=== PATIENT | female | born 1975 | race Caucasian/White ===

== ENCOUNTER 2018-10-04 11:44 | Inpatient (IN) ==
[2018-10-04] MEDS ORDERED: IPRATROPIUM/ALBUTEROL 3 ML AMPUL.NEB NEB ONE ×2 (11:49→11:50)
[2018-10-04] MEDS ORDERED: TERBUTALINE 1 MG/ML VIAL SQ ONE (12:02)
[2018-10-04] MEDS ORDERED: methylPREDNISolone SOD SUCC 125 MG/2 ML VIAL IV ONE (12:02)
[2018-10-04] MEDS ORDERED: 0.9 % SODIUM CHLORIDE 1,000 ML IV ONE (12:02)
[2018-10-04] MEDS ORDERED: AZITHROMYCIN 500 MG in DEXTROSE 5% IN WATER 250 ML IV ONE (12:02)
--- NOTE | 2018-10-04 12:07 | Emergency Department Note ---
SOB HPI - General Chief Complaint: Shortness of Breath/Dyspnea Stated Complaint: shortness of breath, cold/flu Time Seen by Provider: 10/04/18 11:56 Source: patient Mode of arrival: ambulatory Limitations: no limitations - History of Present Illness 43-year-old female been sick for the last week. No fever but chills. Nausea but no vomiting or diarrhea. Very short of breath with wheezing. Has run out of her inhalers and is having a lot of trouble catching her breath. - Related Data Home Medications Medication Instructions Recorded Confirmed albuterol sulfate HFA 90 2 puff INHALATION QID g 12/05/15 05/07/18 mcg/actuation aerosol inhaler epinephrine 0.3 mg/0.3 mL 0.3 mg IM ONCE 12/05/15 05/07/18 injection, auto-injector levothyroxine 150 mcg tablet 150 mcg PO QDAY tab 12/05/15 05/07/18 methocarbamol 500 mg tablet 1,000 mg PO QID 12/05/15 05/07/18 omeprazole 20 mg capsule,delayed 20 mg PO QDAY cap 12/05/15 05/07/18 release oxycodone-acetaminophen 5 mg-325 1 - 2 tab PO Q6H PRN 12/05/15 05/07/18 mg tablet sertraline 50 mg tablet 50 mg PO QDAY 12/05/15 05/07/18 zolpidem 10 mg tablet 10 mg PO HS PRN 12/05/15 05/07/18 metFORMIN [Glucophage] 500 mg PO DAILY 10/12/17 05/07/18 Gabapentin [Gralise] 600 mg PO TID 05/07/18 05/07/18 Previous Rx's Medication Instructions Recorded Methocarbamol [Robaxin-750] 750 mg PO Q6-8HP PRN #30 tab 05/11/18 Ondansetron [Zofran] 4 mg SL Q4HP PRN #20 tab 05/11/18 HYDROmorphone HCL [Dilaudid] 2 mg PO Q4-6HP PRN #60 tab 05/12/18 Methocarbamol [Robaxin] 750 mg PO TIDP PRN #60 tab 05/12/18 Albuterol Sulfate 2.5 mg IH Q4HP PRN #60 vial 10/04/18 Albuterol Sulfate [Ventolin] 2 puff INH Q4-6HP PRN #1 inhaler 10/04/18 Azithromycin [Zithromax] 250 mg PO DAILY #6 tablet 10/04/18 predniSONE [Prednisone] 10 mg PO DAILY #30 tablet 10/04/18 Allergies Allergy/AdvReac Type Severity Reaction Status Date / Time morphine Allergy Severe Anaphylaxis Verified 10/04/18 11:46 levofloxacin [From Levaquin] AdvReac Severe Hives Verified 10/04/18 11:46 Review of Systems All systems ED: reviewed and negative except as stated. Past Medical History - Past Medical History Attestation: Yes: The following information was validated with the patient. [facility] Narrative: Family History Grandmother (Maternal) Diabetes mellitus Aunt (Maternal) Malignant neoplasm of breast Diabetes mellitus Medical History Obesity (Chronic) Frequency of micturition (Chronic) Impaired fasting glucose (Chronic) Depression with anxiety (Chronic) Low back pain (Chronic) Insomnia (Chronic) Wheezing (Chronic) Esophageal reflux (Chronic) Hypothyroidism (Chronic) Past Surgical History History of bilateral salpingectomy (Chronic) History of section (Chronic) History of cholecystectomy (Chronic) History of meniscectomy of right knee (Chronic) History of total abdominal hysterectomy and bilateral salpingo-oophorectomy (Chronic) Medical history: Reports: arthritis, asthma, DM, hypothyroidism, other (history of obesity, history of chronic back pain) Surgical history ED: Reports: , hysterectomy - Social History smoking status: Former smoker Alcohol use: Reports: None Drug use: Reports: none Physical Exam Obese female some distress secondary to respiratory difficulty. Normocephalic atraumatic. Conjunctive are clear sclerae white and nonicteric. No nasal discharge or congestion. Oropharynx pink moist. Posterior pharynx clear. No exudate or erythema. Neck is supple without lymphadenopathy or thyromegaly. Heart is regular rhythm but tachycardic. Lungs with's severe wheezing in all lung ziegler. Increased work of breathing noted. This is after getting a single breathing treatment with DuoNeb -only mild improvement with the DuoNeb. No pedal edema. Alert oriented but having trouble giving me history secondary to difficulty breathing Limitations: no limitations Course Vital Signs Temperature 97.3 F 10/04/18 11:45 Pulse Rate 81 10/04/18 11:45 Respiratory Rate 30 H 10/04/18 11:45 Blood Pressure 137/80 10/04/18 11:45 Pulse Oximetry (%) 96 10/04/18 11:45 Temperature 97.3 F 10/04/18 11:45 Pulse Rate 106 H 10/04/18 14:21 Respiratory Rate 30 H 10/04/18 11:45 Blood Pressure 137/77 10/04/18 14:21 Pulse Oximetry (%) 98 10/04/18 14:21 Shortness of Breath/Dyspnea - Lab Data Lab results reviewed: Yes I reviewed the patient's lab results. Result diagrams: 10/04/18 12:17 10/04/18 12:17 Lab Results 10/04/18 10/04/18 Range/Units 12:17 12:17 WBC 8.3 (4.5-11.0) K/mcL RBC 4.29 (4.00-5.20) M/mcL Hgb 12.9 (12.0-15.0) g/dL Hct 39.3 (36.0-48.0) % MCV 91.6 (80.0-100.0) fL MCH 30.1 (26.0-34.0) pg MCHC 32.8 (31.0-36.0) g/dL RDW 14.1 (11.5-14.5) % Plt Count 311 (140-440) K/mcL MPV 8.0 (7.4-10.4) fL Gran % 42.4 (38.0-78.0) % Lymph % (Auto) 46.7 (15.5-49.0) % [place] % (Auto) 6.4 (1.0-12.0) % Eos % (Auto) 4.1 (0.0-7.0) % Baso % (Auto) 0.4 (0.0-2.0) % Gran # 3.5 (1.8-8.0) K/mcL Lymph # (Auto) 3.9 (1.5-4.8) K/mcL [place] # (Auto) 0.5 (0.1-0.9) K/mcL Eos # (Auto) 0.3 (0.0-0.7) K/mcL Baso # (Auto) 0 (0.0-0.3) K/mcL Sodium 141 (133-145) mmol/L Potassium 4.2 (3.3-5.1) mmol/L Chloride 103 (96-108) mmol/L Carbon Dioxide 28 (22-30) mmol/L Anion Gap 10.0 (8-16) BUN 10 (6-20) mg/dl Creatinine 0.6 (0.6-1.1) mg/dl GFR Calculation 112 Glucose 88 (70-105) mg/dL Calcium 9.9 (8.6-10.4) mg/dl Magnesium 2.1 (1.6-2.5) mg/dL Total Bilirubin 0.2 (0.0-1.0) mg/dL AST 24 (0-37) U/l ALT 28 (0-40) U/l Alkaline Phosphatase 82 (39-117) U/L Total Protein 7.3 (5.9-8.4) gm/dL Albumin 4.2 (3.2-5.2) gm/dL Globulin 3.1 (2.2-3.7) gm/dL Albumin/Globulin Ratio 1.4 (1.0-2.3) ABG shows essentially mild hypoxia but otherwise normal Flu swab is negative - Radiology Data Radiology results reviewed: Yes I reviewed the patient's radiology results. Chest x-ray shows perhaps left lower lobe pneumonia but this is equivocal - EKG Data EKG attestation: Yes I reviewed and interpreted this EKG. EKG results narrative: EKG shows sinus rhythm rate of 76 normal axis no evidence of ischemia Disposition Pt seen by PROFESSIONAL HEALTHCARE REPRESENTATIVE/PA only: No Clinical Impression: Asthma with exacerbation Qualifiers: Asthma severity: unspecified severity Asthma persistence: unspecified Qualified Code(s): J45.901 - Unspecified asthma with (acute) exacerbation Summary: After interview and exam, workup ordered along with heart neb 10 mg albuterol. This is after getting single DuoNeb. She also received Zofran 4 mg x2 for naus ea. Solu-Medrol was given along with azithromycin, magnesium, terbutaline and IV fluids We then gave her a heart neb with 10 mg of albuterol From which she greatly improved. Flu swab was negative. Arterial blood gas did not show significant acidosis. Laboratory were also otherwise unremarkable as was her chest x-ray Discharged home with prednisone taper, azithromycin and Ventolin inhaler. We will also prescribe nebulizer with albuterol Follow-up with primary care Disposition: Home, Self-Care Condition: Fair Instructions: Asthma (ED), How to Use a Nebulizer (ED) Additional Instructions: Sent prescription to your pharmacy. Please picking machine operator helper and take as directed. Also hand written prescription for nebulizer. Please picking machine operator helper and use as directed Follow-up with primary care for further evaluation and treatment Return to the ER for any worsening symptoms Prescriptions: Albuterol Sulfate 2.5 mg IH Q4HP PRN #60 vial PRN Reason: Wheezing Albuterol Sulfate [Ventolin] 2 puff INH Q4-6HP PRN #1 inhaler PRN Reason: Wheezing Azithromycin [Zithromax] 250 mg PO DAILY #6 tablet predniSONE [Prednisone] 10 mg PO DAILY #30 tablet
[2018-10-04 12:42] LABS: Basophils # (Auto) 0 K/mcL (0.0-0.3); Basophils % (Auto) 0.4 % (0.0-2.0); Eosinophils # (Auto) 0.3 K/mcL (0.0-0.7); Eosinophils % (Auto) 4.1 % (0.0-7.0); Granulocytes % (Auto) 42.4 % (38.0-78.0); Lymphocytes # (Auto) 3.9 K/mcL (1.5-4.8); Lymphocytes % (Auto) 46.7 % (15.5-49.0); Mean Cell Volume 91.6 fL (80.0-100.0); Mean Corpuscular HGB Conc 32.8 g/dL (31.0-36.0); Monocytes # (Auto) 0.5 K/mcL (0.1-0.9); Monocytes % (Auto) 6.4 % (1.0-12.0); Platelet Count 311 K/mcL (140-440); RBC 4.29 M/mcL (4.00-5.20); Red Cell Distribution Width 14.1 % (11.5-14.5)
[2018-10-04 13:00] LABS: ALT/SGPT 28 U/l (0-40); Albumin 4.2 gm/dL (3.2-5.2); Albumin/Globulin Ratio 1.4 (1.0-2.3); Alkaline Phosphatase 82 U/L (39-117); Blood Urea Nitrogen 10 mg/dl (6-20)
--- NOTE | 2018-10-04 13:07 | XRay Report ---
HISTORY: Cough for one week FINDINGS: The lungs are incompletely expanded due to suboptimal inspiration. Lung volumes are larger today than they were on 07/18/08. There is crowding of the pulmonary vascular markings but no pneumonia or mass are identified. There is no pleural effusion or congestive heart failure. The heart size is normal. There are spurs around the margin of the left humeral head. IMPRESSION: Suboptimal inspiration and no acute abnormality Interpreted and Authenticated by: Puma Cary 10/04/18
[2018-10-04] MEDS ORDERED: ONDANSETRON 4 MG/2 ML VIAL IV ONE ×2 (13:16→14:08)
[2018-10-04] MEDS: MAGNESIUM SULFATE 2 GM/50 ML BAG IV ONE ×2 (13:28→14:47)
[2018-10-04] MEDS ORDERED: ALBUTEROL SULFATE 2.5 MG/3 ML NEBULIZER ONE (13:41)
[2018-10-04] MEDS: ALBUTEROL SULFATE 5 MG/ML NEB SOLUTION BOTTLE NEB ONE ×2 (13:43→14:16)
[2018-10-04] MEDS ORDERED: ACETAMINOPHEN 325 MG TABLET PO ONE (14:50)
--- NOTE | 2018-10-04 16:29 | Internal Med History&Physical ---
Medical - H&P: [facility] Patient information: Note initiated : 10/04/18 at 4:24 pm Service Date, if different from initiated Date: [] Patient: Felisha Murphy a 43 y/o F admitted on for shortness of breath, cold/flu. Chief Complaint: [] History of present illness: Ms. Murphy is a 43 year old F with severe shortness of breath and cough. Patient has had sick contacts with children. Patient is been sick for about a week and a half. Her illness started out as a cough productive of white sputum congestion some episodes of nausea vomiting she was not particularly short of breath until later on the course. Yesterday she developed significant increase in her shortness of breath and her cough became worse which was now productive of thick green sputum. She stayed home through the night hoping for some improvement. However, after lack of sleep because of her illness and persistent symptoms she went into the ER. Worse in triage she appeared to be quite labored. She does have history of asthma but does not have any inhalers. She ran out of her inhalers at least a year ago, typically only needing her inhalers when she has an illness. In the ED she had a workup included chest x-ray which was unimpressive and an ABG which showed PaO2 of only 60 on room air. She was noted to desat to 87% as recorded, do not know what her sats were when EMS arrived. She is given a nebulizer treatment with minimal improvement. She was subsequently given a heart neb treatment over an hour with improvement in her symptoms. However she was still quite hypoxic and required oxygen, requiring 3-4 L of nasal cannula oxygen. Her peak expiratory flow was 290, which is about 60% of expected. And sometime after the heart nebulizer she continued to develop worsening wheezing. She does complain of some chills headache nausea vomiting she does have some chest wall pain with coughing. Review of Systems: Pertinent positives as above. Denies fever/ abdominal pain/diarrhea. Remaining 10 point review of systems reviewed negative Medical - H&P: PMH Medical history: Medical History Obesity (Chronic) Frequency of micturition (Chronic) Impaired fasting glucose (Chronic) Depression with anxiety (Chronic) Low back pain (Chronic) Insomnia (Chronic) Wheezing (Chronic) Esophageal reflux (Chronic) Hypothyroidism (Chronic) Past Surgical History History of bilateral salpingectomy (Chronic) History of section (Chronic) History of cholecystectomy (Chronic) History of meniscectomy of right knee (Chronic) History of total abdominal hysterectomy and bilateral salpingo-oophorectomy (Chronic) Family History Grandmother (Maternal) Diabetes mellitus Aunt (Maternal) Malignant neoplasm of breast Diabetes mellitus Social History Quit smoking about a year ago, denies alcohol use, lives at home in the family. Medical - H&P: Meds Home Medications Medication Instructions Recorded Confirmed Type levothyroxine 150 mcg tablet 150 mcg PO QDAY tab 12/05/15 10/04/18 History omeprazole 20 mg capsule,delayed 20 mg PO QDAY cap 12/05/15 10/04/18 History release sertraline 50 mg tablet 50 mg PO QDAY 12/05/15 10/04/18 History zolpidem 10 mg tablet 10 mg PO HS PRN 12/05/15 10/04/18 History metFORMIN [Glucophage] 500 mg PO DAILY 10/12/17 10/04/18 History Gabapentin [Gralise] 600 mg PO TID 05/07/18 10/04/18 History Levothyroxine [Synthroid] 300 mcg PO .COMPLEX 10/04/18 10/04/18 History Allergies Allergy/AdvReac Type Severity Reaction Status Date / Time morphine Allergy Severe Anaphylaxis Verified 10/04/18 11:46 levofloxacin [From Levaquin] AdvReac Severe Hives Verified 10/04/18 11:46 Medical - H&P: Exam - Constitutional Vitals: Temp Pulse Resp BP Pulse Ox 97.3 F 105 H 17 127/71 87 L 10/04/18 11:45 10/04/18 15:41 10/04/18 15:21 10/04/18 15:41 10/04/18 15:41 Exam: General: Alert, Awake, No acute Distress, obese Eyes/N/T: EOMI, PEERL, DMM Head/Neck: neck supple, normocephalic atraumatic CV: RRR, 2/6 SM Pulm: Diminished bilaterally, mild wheezing, right-sided rhonchi abd: soft, nontender, +BS x4 Ext: no clubbing/cyanosis, trace bilateral lower extremity edema Neuro: Alert, no focal deficits, moves all extremities, CN 2-12 grossly intact, symmetrical strength b/l upper/lower, sensations intact b/l upper/lower Skin: warm/dry Medical - H&P: Reslt - Labs CBC & Chem 7: 10/04/18 12:17 10/04/18 12:17 Labs: Short CBC 10/04/18 Range/Units 12:17 WBC 8.3 (4.5-11.0) K/mcL Hgb 12.9 (12.0-15.0) g/dL Hct 39.3 (36.0-48.0) % Plt Count 311 (140-440) K/mcL BMP 10/04/18 12:17 Sodium 141 Potassium 4.2 Chloride 103 Carbon Dioxide 28 BUN 10 Creatinine 0.6 Glucose 88 Calcium 9.9 Liver Function 10/04/18 Range/Units 12:17 Total Bilirubin 0.2 (0.0-1.0) mg/dL AST 24 (0-37) U/l ALT 28 (0-40) U/l Alkaline Phosphatase 82 (39-117) U/L Albumin 4.2 (3.2-5.2) gm/dL - Impressions No obvious acute pathology on chest x-ray, noted to have poor inspiratory effort. Medical - H&P: A/P - Narrative A/P Narrative: A: *Acute hypoxic respiratory failure: 2/2 acute exacerbation *Asthma exacerbation: *URI, viral likely: *Diabetes w/neuropathy: *Chronic pain/osteoarthritis: On narcotics: *Depression: *Hypothyroidism: *Obese: * P: -Steroids (wean), nebs/IS/Acapella/RT -o2 support wean -empiric levaquin -f/u PEF -viral panel -SSI, metformin -cont home meds -clarify levothyroxine - - -ppx: lovenox
[2018-10-04] MEDS ORDERED: ACETAMINOPHEN 325 MG TABLET PO PRN (17:32)
[2018-10-04] MEDS ORDERED: DEXTROSE 50% 50 ML VIAL IV PRN (17:32)
[2018-10-04] MEDS ORDERED: LEVOFLOXACIN 500 MG/100 ML BAG IV SCH (17:32)
[2018-10-04] MEDS ORDERED: POLYETHYLENE GLYCOL 3350 17 GM PACKET PO PRN (17:32)
[2018-10-04] MEDS ORDERED: ALBUTEROL SULFATE 2.5 MG/3 ML NEBULIZER NEB PRN (17:32)
[2018-10-04] MEDS ORDERED: ONDANSETRON 4 MG/2 ML VIAL IV PRN (17:32)
[2018-10-04] MEDS ORDERED: DEXTROSE 31 GM ORAL.SUSP PO PRN (17:32)
[2018-10-04] MEDS ORDERED: POTASSIUM CHLORIDE 20 MEQ TABLET PO PRN (17:32)
[2018-10-04] MEDS ORDERED: MAGNESIUM SULFATE 2 GM/50 ML BAG IV PRN (17:32)
[2018-10-04] MEDS ORDERED: PROCHLORPERAZINE 10 MG/2 ML VIAL IV PRN (17:32)
[2018-10-04] MEDS ORDERED: PROMETHAZINE 12.5 MG SUPP.RECT PR PRN (17:32)
[2018-10-04] MEDS: AZITHROMYCIN 500 MG in DEXTROSE 5% IN WATER 250 ML IV SCH (17:43)
[2018-10-04] MEDS: INSULIN LISPRO 1 UNIT/0.01 ML UNIT SQ SCH ×2 (18:24→20:09)
[2018-10-04] MEDS: IPRATROPIUM/ALBUTEROL 3 ML AMPUL.NEB NEB SCH (18:54)
[2018-10-04] MEDS: GABAPENTIN 300 MG CAPSULE PO SCH (20:09)
[2018-10-04] MEDS: FAMOTIDINE 20 MG TABLET PO SCH (20:09)
[2018-10-04] MEDS: 0.9 % SODIUM CHLORIDE 10 ML SYRINGE IV SCH (20:10)
[2018-10-04] MEDS: DOCUSATE SODIUM 100 MG CAPSULE PO SCH (20:10)
[2018-10-04] MEDS ORDERED: SENNOSIDES 1 TABLET PO PRN (21:00)
[2018-10-04] MEDS ORDERED: ZOLPIDEM 5 MG TABLET PO PRN (21:47)
[2018-10-04] MEDS ORDERED: ZOLPIDEM 5 MG TABLET ONE (21:59)
[2018-10-04] MEDS: methylPREDNISolone SOD SUCC 125 MG/2 ML VIAL IV SCH (22:02)
[2018-10-05] MEDS: IPRATROPIUM/ALBUTEROL 3 ML AMPUL.NEB NEB SCH ×4 (01:07→18:48)
[2018-10-05] MEDS: 0.9 % SODIUM CHLORIDE 10 ML SYRINGE IV SCH ×3 (05:37→21:43)
[2018-10-05] MEDS: methylPREDNISolone SOD SUCC 125 MG/2 ML VIAL IV SCH ×3 (05:37→21:39)
[2018-10-05 06:17] LABS: ALT/SGPT 25 U/l (0-40); Albumin/Globulin Ratio 1.4 (1.0-2.3); Alkaline Phosphatase 66 U/L (39-117); Bilirubin,Direct < 0.2 mg/dL (0.0-0.3); Blood Urea Nitrogen 9 mg/dl (6-20); Gamma Glutamyl Transpeptidase 16 U/L (5-36); Uric Acid 4.7 mg/dL (2.5-8.0)
[2018-10-05] MEDS ORDERED: LEVOTHYROXINE 150 MCG TABLET PO SCH (07:30)
[2018-10-05] MEDS: INSULIN LISPRO 1 UNIT/0.01 ML UNIT SQ SCH ×4 (07:38→21:51)
--- NOTE | 2018-10-05 07:39 | Internal Med Progress Note ---
Medical - PN: Subj Patient information: Note initiated : 10/05/18 at 7:35 am Service Date, if different from initiated Date: [] Patient: Felisha Murphy a 43 y/o F admitted on 10/04/18 for shortness of breath, cold/flu. Chief Complaint: [] Interval history: Ms. Murphy is a 43 year old F with severe shortness of breath and cough. Patient has had sick contacts with children. Patient is been sick for about a week and a half. Her illness started out as a cough productive of white sputum congestion some episodes of nausea vomiting she was not particularly short of breath until later on the course. Yesterday she developed significant increase in her shortness of breath and her cough became worse which was now productive of thick green sputum. She stayed home through the night hoping for some improvement. However, after lack of sleep because of her illness and persistent symptoms she went into the ER. Worse in triage she appeared to be quite labored. She does have history of asthma but does not have any inhalers. She ran out of her inhalers at least a year ago, typically only needing her inhalers when she has an illness. In the ED she had a workup included chest x-ray which was unimpressive and an ABG which showed PaO2 of only 60 on room air. She was noted to desat to 87% as recorded, do not know what her sats were when EMS arrived. She is given a nebulizer treatment with minimal improvement. She was subsequently given a heart neb treatment over an hour with improvement in her symptoms. However she was still quite hypoxic and required oxygen, requiring 3-4 L of nasal cannula oxygen. Her peak expiratory flow was 290, which is about 60% of expected. And sometime after the heart nebulizer she continued to develop worsening wheezing. She does complain of some chills headache nausea vomiting she does have some chest wall pain with coughing. 10/05 Was able to get some sleep last night. She has continued cough which is dry at this point. She has some shortness of breath but much improved from admission. She has a headache from coughing. Review of Systems: denies fever/chills/nausea/vomiting/chest or abdominal pain/diarrhea. Otherwise see above. - Constitutional Vitals: Vital Signs Temp Pulse Resp BP Pulse Ox 97.9 F 78 17 92/65 93 10/05/18 04:01 10/05/18 07:05 10/05/18 07:05 10/05/18 07:01 10/05/18 07:05 Period Temp Pulse Resp BP Sys/Pitts Pulse Ox Last 24 Hr 97.3 F-98.6 F 58-132 14-30 84-145/45-111 86-98 Intake and Output 10/04/18 10/05/18 10/05/18 21:59 05:59 13:59 Intake Total 1436 860 Output Total 1020 1650 Balance 416 -790 Weight 119.068 kg Intake & Output: Intake & Output 10/04/18 10/05/18 10/05/18 21:59 05:59 13:59 Intake Total 1436 860 Output Total 1020 1650 Balance 416 -790 Weight 119.068 kg Intake: IV 1116 Sodium Chloride 0.9% 1,000 ml @ 816 Wide Open IV .Q0M ONE Rx#: [id number] Zithromax 500 mg In Dextrose 5% 250 in Water 250 ml @ 250 mls/hr IV ONCE ONE Rx#:[id number] Oral 320 860 Output: Void Amount 1020 1650 Other: Meal Dinner Percent of Meal Consumed 100% Feeding Ability Independent Urine Appearance Clear Clear Urine Color Bright Yellow Bright Yellow Urine Odor Normal Normal Exam: General: Alert, Awake, No acute Distress, obese Eyes/N/T: EOMI, Head/Neck: neck supple, CV: RRR, 2/6 SM Pulm: Better aeration bilaterally , wheezing bilaterally abd: soft, nontender, +BS x4 Ext: no clubbing/cyanosis, trace bilateral lower extremity edema Neuro: Alert, no focal deficits, moves all extremities, Skin: warm/dry Medical - PN: Obj Da - Labs CBC & Chem 7: 10/04/18 12:17 10/05/18 03:20 Labs: Abnormal Lab Results 10/05/18 03:20 Glucose 144 H Phosphorus 2.3 L Meds: Medications Acetaminophen (Tylenol) 650 mg PO Q6HP PRN PRN Reason: PAIN/FEVER > 101 Albuterol Sulfate (Ventolin) 2.5 mg NEB Q4HRT PRN PRN Reason: Bronchospasm Albuterol/Ipratropium (Duoneb) 3 ml NEB Q6HRT KAYLEE Last Admin: 10/05/18 01:07 Dose: 3 ml Documented by: Dextrose (Dextrose 50%) 0 ml IV UD PRN PRN Reason: Hypoglycemia Diagnostic Test (Pha) (Accu-Chek) 1 each FS [facility] Last Admin: 10/04/18 20:09 Dose: 1 each Documented by: Docusate Sodium (Colace) 100 mg PO BID [facility] Last Admin: 10/04/18 20:10 Dose: Not Given Documented by: Enoxaparin Sodium (Lovenox) 40 mg SQ DAILY [facility] Famotidine (Pepcid) 20 mg PO BID [facility] Last Admin: 10/04/18 20:09 Dose: 20 mg Documented by: Gabapentin (Neurontin) 600 mg PO TID [facility] Last Admin: 10/04/18 20:09 Dose: 600 mg Documented by: Glucose (Insta-Glucose) 15 gm PO PRN PRN PRN Reason: Hypoglycemia Azithromycin 500 mg/ Dextrose 250 mls @ 250 mls/hr IV DAILY [facility] Stop: 10/06/18 09:59 Last Admin: 10/04/18 17:43 Dose: 250 mls/hr Documented by: Magnesium Sulfate (Magnesium Sulfate) 2 gm in 50 mls @ 50 mls/hr IV ONCE PRN PRN Reason: Magnesium </= 1.6 Insulin Human Lispro (Humalog) 0 unit SQ [facility]; Protocol Last Admin: 10/04/18 20:09 Dose: 6 units Documented by: Levothyroxine Sodium (Synthroid) 300 mcg PO [id number] [facility] Levothyroxine Sodium (Synthroid) 150 mcg PO [id number]@0730 [facility] Metformin [facility] ([facility]ucophage) [facility] Methylprednisolone Sodium Succinate (Solu-Medrol) 80 mg IV Q8 [facility] Last Admin: 10/05/18 05:37 Dose: 80 mg Documented by: Ondansetron HCl (Zofran) 4 mg IV Q4HP PRN PRN Reason: Nausea And Vomiting Polyethylene Glycol (Miralax) 17 gm PO DAILYP PRN PRN Reason: Constipation Potassium Chloride (Kdur) 40 meq PO ONCE PRN PRN Reason: Potassium < 3 Prochlorperazine (Compazine) 10 mg IV Q6HP PRN PRN Reason: Nausea And Vomiting Promethazine HCl (Phenergan) 12.5 mg NV Q6HP PRN PRN Reason: Pain Senna (Senokot) 2 tab PO HSP PRN PRN Reason: Constipation Sertraline HCl (Zoloft) 50 mg PO QDAY KAYLEE Sodium Chloride (Saline Flush) 10 ml IV Q8 KAYLEE Last Admin: 10/05/18 05:37 Dose: 10 ml Documented by: Zolpidem Tartrate (Ambien) 10 mg PO HSP PRN PRN Reason: Insomnia Medical - PN: A/P - Time Spent With Patient Total time spent is greater than 50% in coordination of care (as documented) at patient's floor/unit and/or counseling patient: - Narrative A/P Narrative: A: *Acute hypoxic respiratory failure: 2/2 acute exacerbation -started on room air today while in bed -resp viral panel with Rhinovirus *Asthma exacerbation: *URI: *Diabetes w/neuropathy: *Chronic pain/osteoarthritis: On narcotics: *Depression: *Hypothyroidism: *Obese: * P: -Steroids (wean), nebs/IS/Acapella/RT -o2 support wean -empiric levaquin -f/u PEF -viral panel -SSI, metformin -cont home meds -clarify christian -needs IH script upon d/c - -ppx: lovenox Medical - PN: Qual - VTE Deep Vein Thrombosis/Pulmonary Embolism Present on Admission: No
[2018-10-05] MEDS ORDERED: metFORMIN 500 MG TABLET PO SCH (08:00)
[2018-10-05] MEDS: GABAPENTIN 300 MG CAPSULE PO SCH ×3 (08:19→21:36)
[2018-10-05] MEDS: FAMOTIDINE 20 MG TABLET PO SCH ×2 (08:19→21:36)
[2018-10-05] MEDS: DOCUSATE SODIUM 100 MG CAPSULE PO SCH ×2 (08:19→21:37)
[2018-10-05] MEDS: AZITHROMYCIN 500 MG in DEXTROSE 5% IN WATER 250 ML IV SCH (08:20)
[2018-10-05] MEDS ORDERED: BENZONATATE 100 MG CAPSULE PO PRN ×2 (08:28→10:26)
[2018-10-05] MEDS ORDERED: BENZONATATE 100 MG CAPSULE PO ONE (08:28)
[2018-10-05] MEDS ORDERED: ENOXAPARIN 40 MG/0.4 ML SYRINGE SQ SCH (09:00)
[2018-10-05] MEDS ORDERED: SERTRALINE 100 MG TABLET PO SCH (09:00)
[2018-10-05] MEDS ORDERED: MAGNESIUM SULFATE 2 GM/50 ML BAG IV PRN (10:26)
[2018-10-05] MEDS ORDERED: POTASSIUM CHLORIDE 20 MEQ TABLET PO PRN (10:26)
[2018-10-05] MEDS ORDERED: PROMETHAZINE 12.5 MG SUPP.RECT PR PRN (10:26)
[2018-10-05] MEDS ORDERED: DEXTROSE 50% 50 ML VIAL IV PRN (10:26)
[2018-10-05] MEDS ORDERED: POLYETHYLENE GLYCOL 3350 17 GM PACKET PO PRN (10:26)
[2018-10-05] MEDS ORDERED: ONDANSETRON 4 MG/2 ML VIAL IV PRN (10:26)
[2018-10-05] MEDS ORDERED: DEXTROSE 31 GM ORAL.SUSP PO PRN (10:26)
[2018-10-05] MEDS ORDERED: SENNOSIDES 1 TABLET PO PRN (10:26)
[2018-10-05] MEDS ORDERED: ZOLPIDEM 5 MG TABLET PO PRN (10:26)
[2018-10-05] MEDS ORDERED: PROCHLORPERAZINE 10 MG/2 ML VIAL IV PRN (10:26)
[2018-10-05] MEDS ORDERED: ALBUTEROL SULFATE 2.5 MG/3 ML NEBULIZER NEB PRN (10:26)
[2018-10-05] MEDS ORDERED: ACETAMINOPHEN 325 MG TABLET PO PRN (10:26)
[2018-10-05] MEDS ORDERED: methylPREDNISolone SOD SUCC 125 MG/2 ML VIAL IV SCH (14:00)
[2018-10-06] MEDS: guaiFENesin/CODEINE 10 ML UDC PO PRN ×3 (00:43→08:51)
[2018-10-06] MEDS: IPRATROPIUM/ALBUTEROL 3 ML AMPUL.NEB NEB SCH ×2 (00:57→08:38)
[2018-10-06] MEDS: methylPREDNISolone SOD SUCC 125 MG/2 ML VIAL IV SCH (06:19)
[2018-10-06] MEDS: 0.9 % SODIUM CHLORIDE 10 ML SYRINGE IV SCH (06:23)
--- NOTE | 2018-10-06 06:57 | Discharge Summary ---
Medical - DS: Prov Patient information: Note initiated : 10/06/18 at 6:50 am Service Date, if different from initiated Date: [] Patient: Felisha Murphy 43 y/o F admitted on 10/04/18 for shortness of breath, cold/flu. Chief Complaint: [] Date of admission: 10/04/18 17:31 Discharge date: 10/06/18 Consults: 10/04/18 Consult to Physician [CONS] Stat Comment: Consulting Provider: Barry Jeter Reason For Exam: Physician to Consult Medical - DS: Meds - Discharge Medications Prescriptions: Albuterol Sulfate [Proair Hfa] 8.5 gm IH Q4HP PRN #1 hfa.aer.ad PRN Reason: Dyspnea guaiFENesin/CODEINE [Robitussin AC] 10 ml PO Q4HP PRN #1 b PRN Reason: Cough predniSONE [Prednisone] 40 mg PO DAILY #1 tab Active and Home Medications: Home Medications levothyroxine 150 mcg tablet 150 mcg PO SUTUWETHSA@0730 tab 12/05/15 [History Confirmed 10/04/18 Last Taken 10/03/18 08:00] omeprazole 20 mg capsule,delayed release 20 mg PO ACB cap 12/05/15 [History Confirmed 10/04/18 Last Taken 10/04/18 08:00] sertraline 50 mg tablet 100 mg PO DAILY 12/05/15 [History Confirmed 10/04/18 Last Taken 10/04/18 08:00] zolpidem 10 mg tablet 10 mg PO HSP PRN 12/05/15 [History Confirmed 10/04/18 Last Taken 05/10/18] metFORMIN [Glucophage] 500 mg PO QAMCC 10/12/17 [History Confirmed 10/04/18 Last Taken 10/04/18 08:00] Levothyroxine [Synthroid] 225 mcg PO MOFR@0730 10/04/18 [History Confirmed 10/05/18 Last Taken 10/04/18 08:00] Gabapentin [Neurontin] 600 mg PO TID 10/05/18 [History Confirmed 10/05/18 Last Taken Unknown] Home Medications levothyroxine 150 mcg tablet 150 mcg PO SUTUWETHSA@0730 tab 12/05/15 [History Confirmed 10/04/18 Last Taken 10/03/18 08:00] omeprazole 20 mg capsule,delayed release 20 mg PO ACB cap 12/05/15 [History Confirmed 10/04/18 Last Taken 10/04/18 08:00] sertraline 50 mg tablet 100 mg PO DAILY 12/05/15 [History Confirmed 10/04/18 Last Taken 10/04/18 08:00] zolpidem 10 mg tablet 10 mg PO HSP PRN 12/05/15 [History Confirmed 10/04/18 Last Taken 05/10/18] metFORMIN [Glucophage] 500 mg PO QAMCC 10/12/17 [History Confirmed 10/04/18 Last Taken 10/04/18 08:00] Levothyroxine [Synthroid] 225 mcg PO MOFR@0730 10/04/18 [History Confirmed 10/05/18 Last Taken 10/04/18 08:00] Gabapentin [Neurontin] 600 mg PO TID 10/05/18 [History Confirmed 10/05/18 Last Taken Unknown] Albuterol Sulfate [Proair Hfa] 8.5 gm IH Q4HP PRN #1 hfa.aer.ad 10/06/18 [Rx Last Taken Unknown] predniSONE [Prednisone] 40 mg PO DAILY #1 tab 10/06/18 [Rx Last Taken Unknown] Medical - DS: Hosp Hospital course: Ms. Murphy is a 43 year old F with severe shortness of breath and cough. Patient has had sick contacts with children. Patient is been sick for about a week and a half. Her illness started out as a cough productive of white sputum congestion some episodes of nausea vomiting she was not particularly short of breath until later on the course. Yesterday she developed significant increase in her shortness of breath and her cough became worse which was now productive of thick green sputum. She stayed home through the night hoping for some improvement. However, after lack of sleep because of her illness and persistent symptoms she went into the ER. Worse in triage she appeared to be quite labored. She does have history of asthma but does not have any inhalers. She ran out of her inhalers at least a year ago, typically only needing her inhalers when she has an illness. In the ED she had a workup included chest x-ray which was unimpressive and an ABG which showed PaO2 of only 60 on room air. She was noted to desat to 87% as recorded, do not know what her sats were when EMS arrived. She is given a nebulizer treatment with minimal improvement. She was subsequently given a h eart neb treatment over an hour with improvement in her symptoms. However she was still quite hypoxic and required oxygen, requiring 3-4 L of nasal cannula oxygen. Her peak expiratory flow was 290, which is about 60% of expected. And sometime after the heart nebulizer she continued to develop worsening wheezing. She does complain of some chills headache nausea vomiting she does have some chest wall pain with coughing. 10/05 Was able to get some sleep last night. She has continued cough which is dry at this point. She has some shortness of breath but much improved from admission. She has a headache from coughing. 10/06 Coughing but overall doing much better. Has been on room air since yesterday. No overnight events. Satting well on room air. Stable for discharge Discharge diagnosis: Asthma exacerbation acute hypoxic respiratory failure URI Secondary discharge diagnosis: Diabetes with neuropathy chronic pain depression hypothyroidism obesity - Time Spent with Patient Total time spent providing and/or coordinating discharge services: Greater than 30 minutes Medical - DS: Exam - Constitutional Vitals: Vital Signs Temp Pulse Pulse Resp BP BP BP 10/06/18 03:45 98.2 F 81 20 107/57 10/06/18 01:03 76 16 10/06/18 00:58 64 16 10/05/18 23:19 97.9 F 82 18 117/71 10/05/18 19:09 98.5 F 93 H 18 119/58 10/05/18 18:45 92 H 20 10/05/18 15:54 98.3 F 87 20 122/60 10/05/18 13:15 92 H 20 10/05/18 12:00 99.1 F H 77 18 109/60 10/05/18 11:51 82 10/05/18 11:50 81 109/60 10/05/18 10:30 10/05/18 10:08 94 H 15 10/05/18 09:55 101 H 22 127/74 10/05/18 08:54 19 10/05/18 08:01 97 H 17 111/57 10/05/18 08:00 98.5 F 10/05/18 07:35 88 18 10/05/18 07:05 78 17 10/05/18 07:01 77 22 92/65 10/05/18 07:00 Pulse Ox 10/06/18 03:45 96 10/06/18 01:03 10/06/18 00:58 10/05/18 23:19 95 10/05/18 19:09 94 10/05/18 18:45 10/05/18 15:54 95 10/05/18 13:15 10/05/18 12:00 95 10/05/18 11:51 95 10/05/18 11:50 95 10/05/18 10:30 91 10/05/18 10:08 94 10/05/18 09:55 95 10/05/18 08:54 10/05/18 08:01 93 10/05/18 08:00 10/05/18 07:35 10/05/18 07:05 93 10/05/18 07:01 93 10/05/18 07:00 97 Intake and Output 10/05/18 10/06/18 10/06/18 21:59 05:59 13:59 Intake Total 1160 600 Output Total 550 1750 Balance 610 -1150 Intake: Oral 1160 600 Output: Void Amount 550 1750 Other: Meal Dinner Percent of Meal Consumed 50% # Voids 3 Weight 120.429 kg Medical - DS: A/P - Patient/Caregiver Discharge Instructions Activity: increase activity as tolerated Diet: Consistent Carbohydrate Additional Instructions: Sent prescription to your pharmacy. 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 Also hand written prescription for nebulizer. 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
[2018-10-06] MEDS: INSULIN LISPRO 1 UNIT/0.01 ML UNIT SQ SCH (07:00)
[2018-10-06] MEDS: GABAPENTIN 300 MG CAPSULE PO SCH (07:19)
[2018-10-06] MEDS: DOCUSATE SODIUM 100 MG CAPSULE PO SCH (07:19)
[2018-10-06] MEDS: FAMOTIDINE 20 MG TABLET PO SCH (07:19)
[2018-10-06] MEDS ORDERED: LEVOTHYROXINE 150 MCG TABLET PO SCH (07:30)
[2018-10-06] MEDS ORDERED: metFORMIN 500 MG TABLET PO SCH (08:00)
[2018-10-06] MEDS ORDERED: BENZOCAINE/MENTHOL 1 LOZENGE PO PRN (08:39)
[2018-10-06] MEDS ORDERED: BENZOCAINE/MENTHOL 1 LOZENGE PO ONE (08:48)
[2018-10-06] MEDS ORDERED: AZITHROMYCIN 500 MG in DEXTROSE 5% IN WATER 250 ML IV SCH (09:00)
[2018-10-06] MEDS ORDERED: ENOXAPARIN 40 MG/0.4 ML SYRINGE SQ SCH (09:00)
[2018-10-06] MEDS ORDERED: SERTRALINE 50 MG TABLET PO SCH (09:00)
[2018-10-08] MEDS ORDERED: LEVOTHYROXINE 75 MCG TABLET PO SCH ×2 (07:30)
== END 2018-10-06 10:50 | disposition home or self-care (01) | DRG 202 ==
LOC: ED 11:44 → ICU 17:20 → MEDSUR 10-05 13:30
PROVIDERS: ADMIT Internal Medicine; ATTEND Internal Medicine

== ENCOUNTER 2020-04-20 11:16 | Inpatient (IN) ==
[2020-04-20] MEDS ORDERED: IOPAMIDOL 100 ML BOTTLE IV ONE (11:17)
--- NOTE | 2020-04-20 12:11 | Emergency Department Note ---
SOB HPI General Chief Complaint: Shortness of Breath/Dyspnea Stated Complaint: SOB Time Seen by Provider: 04/20/20 11:57 Source: patient Mode of arrival: ambulatory Limitations: no limitations History of Present Illness HPI Narrative: Narrative: 45-year old patient presenting with chief complaint of dyspnea. Patient's dyspnea arose over the course of past several days. Patient with associated symptoms of cough, sputum, gradual progression, fever. Patient states she was diagnosed with pneumonia and presented to [facility] anticipating admission however was not admitted. Patient is advised during my initial evaluation that with her vital signs of oxygen saturations at 97%, pulse 83 blood pressure 118/72 at time of evaluation today it is unlikely she had severe enough disease that she need to be admitted at that time. Past medical history is significant for chronic pain/diabetes type 2/obesity, deconditioning. This patient's dyspnea was exacerbated by exertion within 50-100 feet of walking or several minutes of exercise. Symptoms are continuous. Additional associated symptoms such as cough, sputum production, nasal congestion, chest pain, peripheral edema, joint swelling, muscle weakness were also inquired-patient with diffusely positive review of systems nonfocal. Patient primarily with dyspnea sensation of air hunger/ working very hard to breathe. Related Data Home Medications Medication Instructions Recorded Confirmed sertraline 50 mg tablet 100 mg PO DAILY 12/05/15 04/20/20 zolpidem 10 mg tablet 10 mg PO HSP PRN 12/05/15 04/20/20 epinephrine 0.3 mg/0.3 mL 0.3 mg IM ONCE 11/10/18 04/20/20 injection, auto-injector gabapentin 300 mg capsule 900 mg PO TID cap 11/10/18 04/20/20 levothyroxine 200 mcg capsule 200 mcg PO DAILY 11/10/18 04/20/20 omeprazole 20 mg capsule,delayed 20 mg PO DAILY cap 11/10/18 04/20/20 release Previous Rx's Medication Instructions Recorded albuterol sulfate 8.5 gm IH Q4HP PRN #1 hfa.aer.ad 10/06/18 hydrocodone-acetaminophen 1 tab PO Q4HP PRN #40 tab 01/27/19 methocarbamol 750 mg tablet 750 mg PO TID #10 tab 10/22/19 Allergies Allergy/AdvReac Type Severity Reaction Status Date / Time levofloxacin [From Levaquin] Allergy Severe Anaphylaxis Verified 04/20/20 11:16 morphine Allergy Severe Anaphylaxis Verified 04/20/20 11:16 Quinolones Allergy Mild Hives Verified 04/20/20 16:37 Review of Systems ROS ROS Narrative: Narrative: All systems ED: reviewed and negative except as stated. [facility], [facility] Narrative Patient History Narrative: Narrative: Medical/Surgical/Family History All Active Problems (Updated 04/20/20 @ 17:30 by Jeff Whaley MD) Dysuria (Acute) Other urinary incontinence (Acute) Viral upper respiratory illness (Acute) Pneumonia (Acute) Fall (Acute) Left wrist sprain (Acute) Contusion of left shoulder (Acute) MARCELINO positive (Acute) Back pain (Acute) Gait abnormality (Chronic) Impaired ambulation (Chronic) Fatigue (Chronic) Anemia (Chronic 09/24/18) Systolic murmur (Chronic 10/19/18) Asthma (Chronic 09/15/18) Chronic pain syndrome (Chronic 09/15/18) Complex regional pain syndrome (Chronic 09/24/18) Depressive disorder (Chronic 09/15/18) Opioid dependence (Chronic 09/24/18) Diabetes mellitus, type II (Chronic 09/10/12) Multiple joint pain (Acute 09/15/18) Encounter for medical screening examination (Chronic) Diabetes mellitus type 2, controlled, without complications (Chronic) Osteoarthritis (arthritis due to wear and tear of joints) (Chronic) Toenail avulsion (Chronic) Arthrofibrosis of knee joint (Chronic) Asthma with exacerbation (Chronic) Obesity (Chronic) Frequency of micturition (Chronic) Impaired fasting glucose (Chronic) Depression with anxiety (Chronic) Low back pain (Chronic) Insomnia (Chronic 09/15/18) Wheezing (Chronic) Esophageal reflux (Chronic 09/15/18) Hypothyroidism (Chronic 09/15/18) Medical History (Updated 04/20/20 @ 17:30 by Jeff Whaley MD) MARCELINO positive (Acute) Anemia (Chronic 09/24/18) Asthma (Chronic 09/15/18) Back pain (Acute) Chronic pain syndrome (Chronic 09/15/18) Complex regional pain syndrome (Chronic 09/24/18) Depression with anxiety (Chronic) Depressive disorder (Chronic 09/15/18) Diabetes mellitus, type II (Chronic 09/10/12) Esophageal reflux (Chronic 09/15/18) Fatigue (Chronic) Frequency of micturition (Chronic) Gait abnormality (Chronic) Hypothyroidism (Chronic 09/15/18) Impaired ambulation (Chronic) Impaired fasting glucose (Chronic) Insomnia (Chronic 09/15/18) Low back pain (Chronic) Multiple joint pain (Acute 09/15/18) Obesity (Chronic) Opioid dependence (Chronic 09/24/18) Systolic murmur (Chronic 10/19/18) Wheezing (Chronic) Surgical History (Updated 01/27/19 @ 11:37 by Mamadou Harper MD) History of bilateral salpingectomy (Chronic) partial History of section (Chronic) x3 History of cholecystectomy (Chronic) History of meniscectomy of right knee (Chronic) 1999 History of total abdominal hysterectomy and bilateral salpingo-oophorectomy (Chronic) 07/2009 with [place] sling urethropexy History of total right knee replacement (TKR) (Chronic 11/17/17) Family History (Updated 11/10/18 @ 09:22 by Malu Saha) Father Heart disease Family/Other Hodgkins disease Maternal Aunt Diabetes mellitus Maternal Malignant neoplasm of breast Maternal Grandmother Diabetes mellitus Maternal Sister Diabetes mellitus Social History Smoking Status: Never smoker Alcohol Intake Frequency: does not drink Substance Use: does not use Exam Narrative Narrative: Narrative: Vital signs and evaluated for evidence of hypoxia or hemodynamic compromise specifically tachycardia/hypotension General: Alert, interactive, appropriate Head: Atraumatic, normocephalic Eyes: Extraocular movements intact, sclera anicteric, no conjunctival injection Ears: Pinnae normal, no discharge Mouth: Oral mucosa moist, no acute swelling or evidence of infection Nares: No nasal discharge, patent bilaterally Neck: Trachea midline, full range of motion Chest: Symmetrical chest wall rise, breathing normally; nonlabored respirations Cardiovascular: Patient with excellent perfusion to the extremities; with tachycardia Extremities: Full range of motion joints, no obvious deformities Neuro: Alert, oriented x3, cranial nerves II through XII grossly intact, patient without lateralizing findings such as weakness, or abnormal reflexes Psychiatric: Normal affect, normal mood General Limitations: no limitations Course Vital Signs Vital signs: Vital Signs Temperature 97.0 F 04/20/20 11:17 Pulse Rate 109 H 04/20/20 11:17 Respiratory Rate 24 H 04/20/20 11:17 Blood Pressure 133/93 04/20/20 11:17 Pulse Oximetry (%) 96 09/11/20 11:17 Temperature 98.7 F 04/20/20 16:34 Pulse Rate 71 04/20/20 16:23 Respiratory Rate 20 04/20/20 16:34 Blood Pressure 136/76 04/20/20 16:34 Pulse Oximetry (%) 91 04/20/20 16:34 MDM MDM Narrative Medical decision making narrative: Narrative: Acute dyspnea differential diagnosis considered in this case included LA, heart failure, cardiac tamponade, bronchospasm, pulmonary embolism, pneumothorax, pneumonia or infection, and upper airway obstruction. After review of chart and patient history/physical exam/labs as well as imaging the differential diagnosis addressed was acute hypoxic respiratory failure, COPD exacerbation, pneumonia, sepsis, pulmonary edema, pneumothorax, metabolic acidosis, acute respiratory distress syndrome, panic attack, airflow obstruction, restrictive lung disease, aspiration, congestive heart failure, hypercapnia, influenza, bronchitis, upper respiratory infection, pulmonary embolism, cardiac tamponade, valvular obstruction, LA/ACS, and arrhythmia in my medical opinion this patient has dyspnea that reasonably does require admission to the hospital. Discussed case with the hospitalist Dr. Aragon and the consensus medical opinion is to admit patient is given Rocephin here as well as assessed for sepsis. Lab Data Result diagrams: 04/20/20 12:14 04/20/20 12:14 Labs: Lab Results 04/20/20 04/20/20 04/20/20 Range/Units 12:14 12:14 14:48 WBC 20.1 H (4.50-11.00) K/mcL RBC 4.34 (3.59-5.38) M/mcL Hgb 13.0 (11.2-15.7) g/dL Hct 40.0 (34.1-44.9) % MCV 92.2 (80.0-100.0) fL MCH 30.0 (26.0-34.0) pg MCHC 32.5 (31.0-36.0) g/dL RDW 12.6 (11.5-14.5) % Plt Count 336 (140-440) K/mcL MPV 10.3 (7.4-10.4) fL Gran % 85.1 H (38.0-78.0) % Lymph % (Auto) 11.4 L (15.5-49.0) % [place] % (Auto) 3.4 (1.0-12.0) % Eos % (Auto) 0 (0.0-7.0) % Baso % (Auto) 0.1 (0.0-2.0) % Gran # 17.12 H (1.80-8.00) K/mcL Lymph # (Auto) 2.29 (1.50-4.80) K/mcL [place] # (Auto) 0.69 (0.10-0.90) K/mcL Eos # (Auto) 0 (0.00-0.70) K/mcL Baso # (Auto) 0.03 (0.00-0.30) K/mcL VBG Lactic Acid 1.0 (0.5-2.0) mmol/L Sodium 141 (133-145) mmol/L Potassium 3.7 (3.3-5.1) mmol/L Chloride 102 (96-108) mmol/L Carbon Dioxide 26 (22-30) mmol/L Anion Gap 13.0 (8-16) BUN 9 (6-20) mg/dl Creatinine 0.5 L (0.6-1.1) mg/dl GFR Calculation 118 Glucose 113 H (70-105) mg/dL Calcium 10.2 (8.6-10.4) mg/dl Total Bilirubin 0.3 (0.0-1.0) mg/dL AST 20 (0-37) U/l ALT 29 (0-40) U/l Alkaline Phosphatase 84 (39-117) U/L Total Protein 7.3 (5.9-8.4) gm/dL Albumin 4.2 (3.2-5.2) gm/dL Globulin 3.1 (2.2-3.7) gm/dL Albumin/Globulin Ratio 1.4 (1.0-2.3) Discharge Plan Patient/Caregiver Discharge Instructions Pt seen by [employer]/PA only: No Clinical Impression: Pneumonia Patient Disposition: Xfer As Outpt/Obs ([facility]) Condition: Fair Discharge Date/Time: 04/20/20 16:30
[2020-04-20 13:16] LABS: Basophils # (Auto) 0.03 K/mcL (0.00-0.30); Basophils % (Auto) 0.1 % (0.0-2.0); Eosinophils # (Auto) 0 K/mcL (0.00-0.70); Eosinophils % (Auto) 0 % (0.0-7.0); Granulocytes % (Auto) 85.1 % (38.0-78.0); Lymphocytes # (Auto) 2.29 K/mcL (1.50-4.80); Lymphocytes % (Auto) 11.4 % (15.5-49.0); Mean Cell Volume 92.2 fL (80.0-100.0); Mean Corpuscular HGB Conc 32.5 g/dL (31.0-36.0); Mean Platelet Volume 10.3 fL (7.4-10.4); Monocytes # (Auto) 0.69 K/mcL (0.10-0.90); Monocytes % (Auto) 3.4 % (1.0-12.0); Platelet Count 336 K/mcL (140-440); RBC 4.34 M/mcL (3.59-5.38); Red Cell Distribution Width 12.6 % (11.5-14.5); WBC 20.1 K/mcL (4.50-11.00)
[2020-04-20 13:22] LABS: ALT/SGPT 29 U/l (0-40); AST/SGOT 20 U/l (0-37); Albumin 4.2 gm/dL (3.2-5.2); Albumin/Globulin Ratio 1.4 (1.0-2.3); Alkaline Phosphatase 84 U/L (39-117); Bilirubin,Total 0.3 mg/dL (0.0-1.0); Blood Urea Nitrogen 9 mg/dl (6-20); Calcium 10.2 mg/dl (8.6-10.4); Carbon Dioxide 26 mmol/L (22-30); Chloride 102 mmol/L (96-108); Globulin 3.1 gm/dL (2.2-3.7); Glomerular Filtration Rate 118; Glucose 113 mg/dL (70-105)
--- NOTE | 2020-04-20 13:51 | XRay Report ---
CLINICAL INFORMATION: dyspnea COMPARISON: Portable chest 08/11/2019 FINDINGS: Heart size, mediastinum and pulmonary vessels are normal. Moderate vague right perihilar and small vague left perihilar infiltrate appreciated. They are smaller than on the on the remote film nine months prior. No effusions. Bones soft tissues normal. IMPRESSION: Moderate right and small left perihilar infiltrates decreased from the remote study nine months ago. It is unknown whether they are chronic or recurrent. Interpreted and Authenticated by: [employer] 04/20/20
[2020-04-20] MEDS ORDERED: cefTRIAXone 1 GM VIAL IV ONE ×2 (14:30→17:00)
--- NOTE | 2020-04-20 14:39 | Internal Med History&Physical ---
HPI History of Present Illness Patient information: Note initiated : 04/20/20 at 2:34 pm Service Date, if different from initiated Date: [] Patient: Felisha Murphy a 45 y/o F admitted on for SOB . Chief Complaint: Hemoptysis/fever/chills/shortness of breath History of present illness: Ms. Murphy is a 45 year old F with a history of [id number] smoking/recurrent pneumonia with recent episode 2 months ago presents with recurrent hemoptysis that started early this morning. Patient also has associated fever, chills and shortness of breath. She has had multiple episodes of pneumonia to last year and then 2 months ago when she was treated at [place]. Because of progression of symptoms she was seen at primary care physician's office and was started on IV antibiotics. She failed to improve despite treatment and presents today with above symptoms. She denies sick contacts/headache, photophobia, rash. She endorses to productive sputum with frequent hemoptysis since this morning. She has been unable to perform ADLs. She denies exposure to parakeet/travel outside [facility]. Patient work-up in ER was consistent with chest infiltrates. CT angiogram chest pending. White count over 20,000. Hospital service was consulted for insetting of failed outpatient treatment for pneumonia and hemoptysis. At the time of my evaluation patient is alert and oriented. She was able to answer most the questions. She endorses history as above. She denies being on blood thinners, weight loss. She quit smoking 2 years ago following a knee surgery. She denies weight loss, diarrhea, bloody emesis or abdominal pain. She denies changes in voice or swallowing difficulty. Review of systems 10 point review system was performed and is negative except for ones discussed above PFSH PFSH All Active Problems (Updated 10/22/19 @ 15:03 by ABHISHEK Freeman) Dysuria (Acute) Other urinary incontinence (Acute) Viral upper respiratory illness (Acute) Pneumonia (Acute) Fall (Acute) Left wrist sprain (Acute) Contusion of left shoulder (Acute) MARCELINO positive (Acute) Back pain (Acute) Gait abnormality (Chronic) Impaired ambulation (Chronic) Fatigue (Chronic) Anemia (Chronic 09/24/18) Systolic murmur (Chronic 10/19/18) Asthma (Chronic 09/15/18) Chronic pain syndrome (Chronic 09/15/18) Complex regional pain syndrome (Chronic 09/24/18) Depressive disorder (Chronic 09/15/18) Opioid dependence (Chronic 09/24/18) Diabetes mellitus, type II (Chronic 09/10/12) Multiple joint pain (Acute 09/15/18) Encounter for medical screening examination (Chronic) Diabetes mellitus type 2, controlled, without complications (Chronic) Osteoarthritis (arthritis due to wear and tear of joints) (Chronic) Toenail avulsion (Chronic) Arthrofibrosis of knee joint (Chronic) Asthma with exacerbation (Chronic) Obesity (Chronic) Frequency of micturition (Chronic) Impaired fasting glucose (Chronic) Depression with anxiety (Chronic) Low back pain (Chronic) Insomnia (Chronic 09/15/18) Wheezing (Chronic) Esophageal reflux (Chronic 09/15/18) Hypothyroidism (Chronic 09/15/18) Medical History (Updated 10/22/19 @ 15:03 by ABHISHEK Freeman) MARCELINO positive (Acute) Anemia (Chronic 09/24/18) Asthma (Chronic 09/15/18) Back pain (Acute) Chronic pain syndrome (Chronic 09/15/18) Complex regional pain syndrome (Chronic 09/24/18) Depression with anxiety (Chronic) Depressive disorder (Chronic 09/15/18) Diabetes mellitus, type II (Chronic 09/10/12) Esophageal reflux (Chronic 09/15/18) Fatigue (Chronic) Frequency of micturition (Chronic) Gait abnormality (Chronic) Hypothyroidism (Chronic 09/15/18) Impaired ambulation (Chronic) Impaired fasting glucose (Chronic) Insomnia (Chronic 09/15/18) Low back pain (Chronic) Multiple joint pain (Acute 09/15/18) Obesity (Chronic) Opioid dependence (Chronic 09/24/18) Systolic murmur (Chronic 10/19/18) Wheezing (Chronic) Surgical History (Updated 01/27/19 @ 11:37 by Mamadou Harper MD) History of bilateral salpingectomy (Chronic) partial History of section (Chronic) x3 History of cholecystectomy (Chronic) History of meniscectomy of right knee (Chronic) 1999 History of total abdominal hysterectomy and bilateral salpingo-oophorectomy (Chronic) 07/2009 with [place] sling urethropexy History of total right knee replacement (TKR) (Chronic 11/17/17) Family History (Updated 11/10/18 @ 09:22 by Malu Saha) Father Heart disease Family/Other Hodgkins disease Maternal Aunt Diabetes mellitus Maternal Malignant neoplasm of breast Maternal Grandmother Diabetes mellitus Maternal Sister Diabetes mellitus Social History (Updated 10/23/19 @ 06:11 by ABHISHEK Freeman) education level: high school physical activity: none smoking status: Never smoker alcohol intake frequency: does not drink substance use type: does not use seatbelt use: always working smoke detector in home: Yes firearms in home: No MEDS/ALLERGIES Home Medications and Allergies Home Medications Medication Instructions Recorded Confirmed Type sertraline 50 mg tablet 100 mg PO DAILY 12/05/15 04/20/20 History zolpidem 10 mg tablet 10 mg PO HSP PRN 12/05/15 04/20/20 History albuterol sulfate 8.5 gm IH Q4HP PRN #1 [email or web address] 10/06/18 04/20/20 Rx epinephrine 0.3 mg/0.3 mL 0.3 mg IM ONCE 11/10/18 04/20/20 History injection, auto-injector gabapentin 300 mg capsule 900 mg PO TID cap 11/10/18 04/20/20 History levothyroxine 200 mcg capsule 200 mcg PO DAILY 11/10/18 04/20/20 History omeprazole 20 mg capsule,delayed 20 mg PO DAILY cap 11/10/18 04/20/20 History release hydrocodone-acetaminophen 1 tab PO Q4HP PRN #40 tab 01/27/19 04/20/20 Rx methocarbamol 750 mg tablet 750 mg PO TID #10 tab 10/22/19 04/20/20 Rx Allergies Allergy/AdvReac Type Severity Reaction Status Date / Time levofloxacin [From Levaquin] Allergy Severe Anaphylaxis Verified 04/20/20 11:16 morphine Allergy Severe Anaphylaxis Verified 04/20/20 11:16 Quinolones Allergy Severe Hives Verified 04/20/20 11:16 EXAM Constitutional Vitals: Temp Pulse Resp BP Pulse Ox 97.0 F 75 24 H 116/66 94 Head normocephalic Oral cavity moist No ear or nose discharge Eye movement symmetrical Neck supple no lymphadenopathy S1-S2 tachycardia Minimally nonlabored breathing, basilar wheezing Nondistended nontender abdomen Lower extremity no cyanosis clubbing or joint swelling Skin no suspicious lesion Psych anxious but alert cooperative Neuro normal higher function 09/11/20 13:29 04/20/20 11:17 04/20/20 12:16 04/20/20 13:29 DATA Data Completed and Pending Labs: Labs from last 24 hours 04/20/20 04/20/20 12:14 12:14 WBC 20.1 H RBC 4.34 Hgb 13.0 Hct 40.0 MCV 92.2 MCH 30.0 MCHC 32.5 RDW 12.6 Plt Count 336 MPV 10.3 Gran % 85.1 H Lymph % (Auto) 11.4 L Moody % (Auto) 3.4 Eos % (Auto) 0 Baso % (Auto) 0.1 Gran # 17.12 H Lymph # (Auto) 2.29 Moody # (Auto) 0.69 Eos # (Auto) 0 Baso # (Auto) 0.03 Sodium 141 Potassium 3.7 Chloride 102 Carbon Dioxide 26 Anion Gap 13.0 BUN 9 Creatinine 0.5 L GFR Calculation 118 Glucose 113 H Calcium 10.2 Total Bilirubin 0.3 AST 20 ALT 29 Alkaline Phosphatase 84 Total Protein 7.3 Albumin 4.2 Globulin 3.1 Albumin/Globulin Ratio 1.4 A/P Narrative A/P Narrative: * Sepsis-secondary to pneumonia. Antibiotic coverage/cultures and management per guidelines, white count 20,000 * Hemoptysis-CT chest with contrast to rule out mass lesion. Pulmonology consult if persistent. Check vasculitis panel. * Pneumonia - PSI>100, failed OP treatment, check COVID-19/strep pneumo/Legionella/pneumocystis/sputum cultures. Levaquin/Rocephin. Inpatient admission * Anxiety disorder continue sertraline * GERD continue PPI * Hypothyroidism continue thyroxine * Degenerative joint disease continue acetaminophen hydrocodone/methocarbamol * Full code * Prophylaxis heparin Plan * Inpatient admission in light of failed outpatient pneumonia treatment * Sepsis management per guidelines * Hemoptysis evaluation, vasculitis panel/CRP/ESR * Sputum cultures/Legionella/pneumocystis * Pre-existing medical condition management as above * PT OT sensation support * COVID-19 precautions Time Spent With Patient Time: Total time spent is greater than 50% in coordination of care (as documented) at patient's floor/unit and/or counseling patient:
[2020-04-20] MEDS ORDERED: LEVOFLOXACIN 750 MG/150 ML BAG IV SCH (16:34)
[2020-04-20] MEDS ORDERED: MAGNESIUM SULFATE 2 GM/50 ML BAG IV PRN (16:34)
[2020-04-20] MEDS ORDERED: POLYETHYLENE GLYCOL 3350 17 GM PACKET PO PRN (16:34)
[2020-04-20] MEDS ORDERED: POTASSIUM CHLORIDE 20 MEQ PACKET PO PRN (16:34)
[2020-04-20] MEDS ORDERED: ALBUTEROL SULFATE 200 PUFF INHALER INH PRN (16:34)
[2020-04-20] MEDS ORDERED: METOPROLOL TARTRATE 5 MG/5 ML VIAL IV PRN (16:34)
[2020-04-20] MEDS ORDERED: BISACODYL 10 MG SUPP.RECT PR PRN (16:34)
[2020-04-20] MEDS ORDERED: hydrALAZINE 20 MG/ML VIAL IV PRN (16:34)
[2020-04-20] MEDS ORDERED: ACETAMINOPHEN 325 MG TABLET PO PRN (16:34)
[2020-04-20] MEDS ORDERED: ONDANSETRON 4 MG ODT TABLET SL PRN (16:34)
[2020-04-20] MEDS ORDERED: EPINEPHRINE 0.3 MG IM SCH (16:34)
[2020-04-20] MEDS ORDERED: MELATONIN 3 MG TABLET PO PRN (16:34)
[2020-04-20] MEDS ORDERED: ONDANSETRON 4 MG/2 ML VIAL IV PRN (16:34)
[2020-04-20] MEDS: 0.9 % SODIUM CHLORIDE 1,000 ML IV SCH (16:57)
[2020-04-20] MEDS: HYDROcodone/APAP 10/325MG TABLET PO PRN (17:26)
[2020-04-20] MEDS: METHOCARBAMOL 750 MG TABLET PO SCH ×2 (17:27→21:10)
[2020-04-20] MEDS: GABAPENTIN 300 MG CAPSULE PO SCH ×2 (17:27→21:10)
[2020-04-20] MEDS: AZITHROMYCIN 500 MG in DEXTROSE 5% IN WATER 250 ML IV SCH (17:29)
[2020-04-20 17:34] LABS: C-Reactive Protein 10.5 mg/dl (0.0-0.8)
--- NOTE | 2020-04-20 17:51 | Cat Scan Report ---
CLINICAL INFORMATION: Hemoptysis COMPARISON: None. TECHNIQUE: 80 cc of Isovue-370 were injected intravenously, and 25 seconds later, 0.625 mm helical slices were obtained from the lung apices through the bases. Following reconstruction, 2.5 mm sagittal, coronal and axial reformations were processed and reviewed at lung, mediastinal and bone windows. 7 mm axial MIPS were also obtained to optimize pulmonary nodule detection. The exam was performed using radiation dose optimization techniques including, but not limited to, automated exposure control, adjustment of the mA and/or kV according to patient size and use of iterative reconstruction technique. FINDINGS: The pulmonary parenchymal windows show large alveolar infiltrates in a peribronchial vascular distribution throughout the right upper middle and lower lobes.. A moderate vague patchy peribronchial vascular infiltrate is seen in the left upper and lower lobes as well. There are no effusions. Mediastinal windows show the pulmonary arteries are normal diameter well-opacified opacified - no evidence of embolus. Thoracic aorta is normal diameter. There are no abnormally enlarged lymph nodes in the mediastinal hilar or or axillary region. The esophagus is unremarkable. Heart is normal in size and configuration. Thyroid is diminutive but shows no abnormality. Bones and soft tissues the chest wall are unremarkable. Images of the abdomen show moderate hepatomegaly with a vertical dimension of the liver approximately 19 cm. There is also diffuse fatty change. The visualized kidneys and adrenal glands spleen and pancreas are normal. IMPRESSION: Large alveolar infiltrate in a peribronchovascular distribution throughout the right upper middle and lower lobes. Moderate, more vague, infiltrate may bronchovascular distribution in the left upper and lower lobes. Consider infection or aspiration. Marked hepatomegaly - please correlate with LFTs Diminutive thyroid - please correlate with TSH Interpreted and Authenticated by: [employer] 04/20/20
[2020-04-20] MEDS: DOCUSATE SODIUM 100 MG CAPSULE PO SCH (21:10)
[2020-04-20] MEDS: SENNOSIDES/DOCUSATE SODIUM 1 TAB TABLET PO SCH (21:10)
[2020-04-20] MEDS: HEPARIN 5,000 UNIT/ML VIAL SQ SCH (21:10)
[2020-04-20] MEDS: 0.9 % SODIUM CHLORIDE 10 ML SYRINGE IV SCH (21:11)
[2020-04-20] MEDS: ZOLPIDEM 5 MG TABLET PO PRN (21:36)
[2020-04-20] MEDS: BUDESONIDE 0.5 MG/2 ML AMPUL.NEB NEB SCH (22:53)
[2020-04-21] MEDS: HYDROcodone/APAP 10/325MG TABLET PO PRN ×4 (04:40→23:26)
[2020-04-21] MEDS: 0.9 % SODIUM CHLORIDE 10 ML SYRINGE IV SCH ×3 (04:40→20:59)
[2020-04-21 06:49] LABS: Hematocrit 37.6 % (34.1-44.9); Hemoglobin 11.8 g/dL (11.2-15.7); Mean Cell Volume 97.4 fL (80.0-100.0); Mean Corpuscular HGB Conc 31.4 g/dL (31.0-36.0); Mean Platelet Volume 9.9 fL (7.4-10.4); Platelet Count 294 K/mcL (140-440); RBC 3.86 M/mcL (3.59-5.38); Red Cell Distribution Width 13.2 % (11.5-14.5); WBC 13.7 K/mcL (4.50-11.00)
[2020-04-21 07:08] LABS: ALT/SGPT 25 U/l (0-40); AST/SGOT 19 U/l (0-37); Albumin 3.5 gm/dL (3.2-5.2); Albumin/Globulin Ratio 1.3 (1.0-2.3); Alkaline Phosphatase 70 U/L (39-117); Bilirubin,Direct < 0.2 mg/dL (0.0-0.3); Bilirubin,Total 0.2 mg/dL (0.0-1.0); Blood Urea Nitrogen 12 mg/dl (6-20); Calcium 9.5 mg/dl (8.6-10.4); Carbon Dioxide 27 mmol/L (22-30); Chloride 106 mmol/L (96-108); Globulin 2.6 gm/dL (2.2-3.7); Glomerular Filtration Rate 111; Glucose 96 mg/dL (70-105); Lactate Dehydrogenase 210 U/L (94-250); Phosphorous 3.7 mg/dL (2.7-4.5); Triglycerides 169 mg/dl (<150); Uric Acid 4.3 mg/dL (2.5-8.0)
[2020-04-21] MEDS: LEVOTHYROXINE 100 MCG TABLET PO SCH (07:24)
[2020-04-21 07:50] LABS: Lymphocytes % 32 % (15-49); Monocytes % (Manual) 2 % (1-12); Platelet Estimate NORMAL (NORMAL); RBC Morphology NORMAL (NORMAL); Reactive Lymphocytes 1 % (0-2); Segmented Neutrophils % 65 % (38-78)
[2020-04-21] MEDS: DOCUSATE SODIUM 100 MG CAPSULE PO SCH ×2 (08:15→21:00)
[2020-04-21] MEDS: cefTRIAXone 2 GM in DEXTROSE 5% IN WATER 50 ML IV SCH (08:16)
[2020-04-21] MEDS: MULTIVIT,THER IRON,CA,FA & MIN 1 TABLET PO SCH (08:17)
[2020-04-21] MEDS: HEPARIN 5,000 UNIT/ML VIAL SQ SCH ×2 (08:17→20:58)
[2020-04-21] MEDS: METHOCARBAMOL 750 MG TABLET PO SCH ×3 (08:18→20:58)
[2020-04-21] MEDS: GABAPENTIN 300 MG CAPSULE PO SCH ×3 (08:18→20:58)
[2020-04-21] MEDS: OMEPRAZOLE 20 MG CAPSULE PO SCH (08:18)
[2020-04-21] MEDS: BUDESONIDE 0.5 MG/2 ML AMPUL.NEB NEB SCH ×2 (08:19→17:01)
[2020-04-21] MEDS: IPRATROPIUM/ALBUTEROL 3 ML AMPUL.NEB NEB PRN ×3 (08:19→23:00)
[2020-04-21] MEDS: SERTRALINE 50 MG TABLET PO SCH (08:19)
[2020-04-21] MEDS: AZITHROMYCIN 500 MG in DEXTROSE 5% IN WATER 250 ML IV SCH (09:18)
--- NOTE | 2020-04-21 11:32 | Internal Med Progress Note ---
SUBJECTIVE Subjective Patient information: Note initiated : 04/21/20 at 11:28 am Service Date, if different from initiated Date: [] Patient: Felisha Murphy a 45 y/o F admitted on 04/20/20 for SOB . Chief Complaint: [ Ms. Murphy is a 45 year old F with a history of [id number] smoking/recurrent pneumonia with recent episode 2 months ago presents with recurrent hemoptysis that started early this morning. Patient also has associated fever, chills and shortness of breath. She has had multiple episodes of pneumonia to last year and then 2 months ago when she was treated at [place]. Because of progression of symptoms she was seen at primary care physician's office and was started on IV antibiotics. She failed to improve despite treatment and presents today with above symptoms. She denies sick contacts/headache, photophobia, rash. She endorses to productive sputum with frequent hemoptysis since this morning. She has been unable to perform ADLs. She denies exposure to parakeet/travel outside [place]. Patient work-up in ER was consistent with chest infiltrates. CT angiogram chest pending. White count over 20,000. Hospital service was consulted for insetting of failed outpatient treatment for pneumonia and hemoptysis. At the time of my evaluation patient is alert and oriented. She was able to answer most the questions. She endorses history as above. She denies being on blood thinners, weight loss. She quit smoking 2 years ago following a knee surgery. She denies weight loss, diarrhea, bloody emesis or abdominal pain. She denies changes in voice or swallowing difficulty. 04/21 patient doing a lot better. Denies hemoptysis. Much improved shortness of breath. Multifocal pneumonia currently on antibiotic coverage. No CT evidence of mass lesion. No fever chills nausea vomiting. Tolerating diet. White count improved from 20->13. Mycoplasma IgM positive. Continue ceftriaxone/erythromycin for community-acquired pneumonia coverage Constitutional Vitals: vital Signs Temp Pulse Resp BP Pulse Ox 98.8 F 68 16 142/82 95 04/21/20 08:00 04/21/20 08:26 04/21/20 08:26 04/21/20 08:00 04/21/20 08:19 Period Temp Pulse Resp BP Sys/Pitts Pulse Ox Last 24 Hr 97.0 F-98.8 F 52-95 14-24 109-142/57-82 91-98 Intake and Output 04/20/20 04/21/20 04/21/20 21:59 05:59 13:59 Intake Total 1470 400 Balance 1470 400 Weight 123.434 kg 123.434 kg Patient Weight 04/22/20 05:59 Weight 123.434 kg Alert and oriented Minimal labored breathing No anxiety Nondistended abdomen Intake & Output: Intake & Output 04/20/20 04/21/20 04/21/20 21:59 05:59 13:59 Intake Total 1470 400 Balance 1470 400 Weight 123.434 kg 123.434 kg Intake: IV 250 Zithromax 500 mg In Dextrose 5% 250 in Water 250 ml @ 250 mls/hr IV Q24H [facility] Rx#:[id number] Oral 1220 400 Other: Meal Dinner Percent of Meal Consumed 75% Feeding Ability Independent Urine Appearance Clear # Voids 1 1 OBJ DATA Labs CBC & Chem 7: 04/21/20 05:00 04/21/20 05:00 Labs: Abnormal Lab Results 04/21/20 04/21/20 04/20/20 05:00 05:00 12:22 WBC 13.7 H Gran % Lymph % (Auto) Gran # Creatinine Glucose C-Reactive Protein Triglycerides 169 H Mycoplasma pneumon IgM Positive A 04/20/20 04/20/20 04/20/20 12:22 12:14 12:14 WBC 20.1 H Gran % 85.1 H Lymph % (Auto) 11.4 L Gran # 17.12 H Creatinine 0.5 L Glucose 113 H C-Reactive Protein 10.5 H Triglycerides Mycoplasma pneumon IgM Meds: Medications Acetaminophen (Tylenol) 650 mg PO Q4-6HP PRN; Protocol PRN Reason: Per Pain Protocol/Fever > 101 Hydrocodone Bitart/Acetaminophen ([place] 10/325mg) 1 tab PO Q4HP PRN; Protocol PRN Reason: Pain Last Admin: 04/21/20 04:40 Dose: 1 tab Documented by: Albuterol Sulfate (Ventolin) 1 puff INH Q4HP PRN PRN Reason: Dyspnea Albuterol/Ipratropium (Duoneb) 3 ml NEB Q4HP PRN PRN Reason: Shortness Of Breath Last Admin: 04/21/20 08:19 Dose: 3 ml Documented by: Bisacodyl (Dulcolax) 10 mg ND Q2-3DAYS PRN PRN Reason: Constipation Budesonide (Pulmicort) 0.5 mg NEB Q12 [facility] Last Admin: 04/21/20 08:19 Dose: 0.5 mg Documented by: Docusate Sodium (Colace) 100 mg PO BID [facility] Last Admin: 04/21/20 08:15 Dose: 100 mg Documented by: Gabapentin (Neurontin) 900 mg PO TID [facility] Last Admin: 04/21/20 08:18 Dose: 900 mg Documented by: Heparin Sodium (Porcine) (Heparin) 5,000 unit SQ Q12 [facility] Last Admin: 04/21/20 08:17 Dose: 5,000 unit Documented by: Hydralazine HCl (Apresoline) 10 mg IV Q4-6HP PRN PRN Reason: Hypertension Magnesium Sulfate (Magnesium Sulfate) 2 gm in 50 mls @ 50 mls/hr IV UD PRN PRN Reason: MG = or < 1.7 Ceftriaxone Sodium 2 gm/ (Dextrose) 50 mls @ 100 mls/hr IV Q24H [facility]; Protocol Last Admin: 04/21/20 08:16 Dose: 100 mls/hr Documented by: Sodium Chloride (Sodium Chloride 0.9%) 1,000 mls @ 50 mls/hr IV .Q20H [facility] Stop: 04/23/20 04:33 Last Admin: 04/20/20 16:57 Dose: 50 mls/hr Documented by: Azithromycin 500 mg/ Dextrose 250 mls @ 250 mls/hr IV Q24H [facility] Stop: 04/22/20 17:59 Last Admin: 04/21/20 09:18 Dose: 250 mls/hr Documented by: Iron Carb/Multivit/Special Services Supervisor/Folic Acid (Multivitamin W/Minerals) 1 tab PO DAILY [facility] Last Admin: 04/21/20 08:17 Dose: 1 tab Documented by: Levothyroxine Sodium (Synthroid) 200 mcg PO ACB [facility] Last Admin: 04/21/20 07:24 Dose: 200 mcg Documented by: Melatonin (Melatonin 3mg Tablet) 3 mg PO HSP PRN PRN Reason: Insomnia Methocarbamol (Robaxin) 750 mg PO TID [facility] Last Admin: 04/21/20 08:18 Dose: 750 mg Documented by: Metoprolol Tartrate (Lopressor) 5 mg IV Q5M PRN PRN Reason: Heart Rate > 140 bpm Omeprazole (Prilosec) 20 mg PO DAILY [facility] Last Admin: 04/21/20 08:18 Dose: 20 mg Documented by: Ondansetron HCl (Zofran Odt) 4 mg SL Q4-6HP PRN; Protocol PRN Reason: Nausea And Vomiting Ondansetron HCl (Zofran) 4 mg IV Q4-6HP PRN; Protocol PRN Reason: Nausea And Vomiting Polyethylene Glycol (Miralax) 17 gm PO DAILYP PRN PRN Reason: Constipation Potassium Chloride (Klor-Con) 40 meq PO DAILYP PRN PRN Reason: K+ < 3.5 Senna/Docusate Sodium (Senna Plus Tablet) 1 tab PO HS [facility] Last Admin: 04/20/20 21:10 Dose: 1 tab Documented by: Sertraline HCl (Zoloft) 100 mg PO DAILY [facility] Last Admin: 04/21/20 08:19 Dose: 100 mg Documented by: Sodium Chloride (Saline Flush) 10 ml IV Q8 [facility] Last Admin: 04/21/20 04:40 Dose: Not Given Documented by: Zolpidem Tartrate (Ambien) 10 mg PO HSP PRN PRN Reason: Sleep Last Admin: 04/20/20 21:36 Dose: 10 mg Documented by: A/P Narrative A/P Narrative: * Sepsis-secondary to pneumonia. Clinically improving with white count down from 20,000-13.5 * Hemoptysis-no mass lesion on chest CT. * Multifocal pneumonia on chest CT- PSI>100, failed OP treatment, await COVID- 19, mycoplasma IgM positive. Continue azithromycin//Rocephin. * Anxiety disorder continue sertraline * GERD continue PPI * Hypothyroidism continue thyroxine * Degenerative joint disease continue acetaminophen hydrocodone/methocarbamol * Full code * Prophylaxis heparin Plan * Continue sepsis management per guidelines * Await vasculitis panel * Pre-existing medical condition management as above * PT OT nutrition support * Continue COVID-19 precautions Time Spent With Patient Time: Total time spent is greater than 50% in coordination of care (as documented) at patient's floor/unit and/or counseling patient: QUALITY VTE Deep Vein Thrombosis/Pulmonary Embolism Present on Admission: No
[2020-04-21] MEDS ORDERED: FLU VACC QS2020-21(6MOS UP)/PF 60 MCG/0.5 ML SYRINGE IM ONE (12:00)
[2020-04-21] MEDS: 0.9 % SODIUM CHLORIDE 1,000 ML IV SCH ×2 (16:50→21:38)
[2020-04-21] MEDS ORDERED: HYDROmorphone 0.5 MG/0.5 ML SYRINGE IV PRN (20:08)
[2020-04-21] MEDS ORDERED: ACETAMINOPHEN 650 MG/65 ML BOTTLE IV PRN (20:17)
[2020-04-21] MEDS: SENNOSIDES/DOCUSATE SODIUM 1 TAB TABLET PO SCH (21:00)
[2020-04-21] MEDS: ZOLPIDEM 5 MG TABLET PO PRN (23:20)
[2020-04-22] MEDS: 0.9 % SODIUM CHLORIDE 10 ML SYRINGE IV SCH (04:51)
[2020-04-22 05:46] LABS: Hemoglobin 11.5 g/dL (11.2-15.7); Mean Cell Volume 95.5 fL (80.0-100.0); Mean Corpuscular HGB Conc 31.9 g/dL (31.0-36.0); Mean Platelet Volume 9.5 fL (7.4-10.4); Platelet Count 279 K/mcL (140-440); RBC 3.77 M/mcL (3.59-5.38); Red Cell Distribution Width 13.2 % (11.5-14.5); WBC 9.8 K/mcL (4.50-11.00)
[2020-04-22 06:10] LABS: ALT/SGPT 21 U/l (0-40); AST/SGOT 17 U/l (0-37); Albumin 3.6 gm/dL (3.2-5.2); Albumin/Globulin Ratio 1.5 (1.0-2.3); Alkaline Phosphatase 70 U/L (39-117); Bilirubin,Direct < 0.2 mg/dL (0.0-0.3); Bilirubin,Total 0.2 mg/dL (0.0-1.0); Blood Urea Nitrogen 11 mg/dl (6-20); Calcium 8.9 mg/dl (8.6-10.4); Carbon Dioxide 29 mmol/L (22-30); Chloride 103 mmol/L (96-108); Globulin 2.4 gm/dL (2.2-3.7); Glomerular Filtration Rate 111; Glucose 97 mg/dL (70-105); Lactate Dehydrogenase 178 U/L (94-250); Phosphorous 4.9 mg/dL (2.7-4.5); Triglycerides 151 mg/dl (<150); Uric Acid 4.7 mg/dL (2.5-8.0)
[2020-04-22 06:46] LABS: Band Neutrophils % 2 % (0-10); Basophils % (Manual) 1 % (0-2); Eosinophils % (Manual) 3 % (0-7); Lymphocytes % 38 % (15-49); Monocytes % (Manual) 2 % (1-12); Platelet Estimate NORMAL (NORMAL); RBC Morphology NORMAL (NORMAL); Segmented Neutrophils % 54 % (38-78)
[2020-04-22] MEDS: HYDROcodone/APAP 10/325MG TABLET PO PRN ×2 (06:59→12:02)
[2020-04-22] MEDS: LEVOTHYROXINE 100 MCG TABLET PO SCH (06:59)
--- NOTE | 2020-04-22 08:06 | XRay Report ---
CLINICAL INFORMATION: Follow up infiltrates COMPARISON: 04/20/2020 FINDINGS: Cardiomediastinal silhouette and pulmonary vessels are normal for technique. The bilateral infiltrates have improved dramatically - there is only vague residual perihilar infiltrates. No effusions IMPRESSION: Near complete resolution in bilateral infiltrates Interpreted and Authenticated by: [employer] 04/22/20
[2020-04-22] MEDS: cefTRIAXone 2 GM in DEXTROSE 5% IN WATER 50 ML IV SCH (08:40)
[2020-04-22] MEDS ORDERED: AZITHROMYCIN 250 MG TABLET PO ONE (08:58)
[2020-04-22] MEDS: 0.9 % SODIUM CHLORIDE 1,000 ML IV SCH (08:58)
[2020-04-22] MEDS: AZITHROMYCIN 500 MG in DEXTROSE 5% IN WATER 250 ML IV SCH (09:00)
[2020-04-22] MEDS: IPRATROPIUM/ALBUTEROL 3 ML AMPUL.NEB NEB PRN (09:00)
[2020-04-22] MEDS: BUDESONIDE 0.5 MG/2 ML AMPUL.NEB NEB SCH (09:00)
[2020-04-22] MEDS: GABAPENTIN 300 MG CAPSULE PO SCH (09:21)
[2020-04-22] MEDS: SERTRALINE 50 MG TABLET PO SCH (09:21)
[2020-04-22] MEDS: DOCUSATE SODIUM 100 MG CAPSULE PO SCH (09:22)
[2020-04-22] MEDS: METHOCARBAMOL 750 MG TABLET PO SCH (09:22)
[2020-04-22] MEDS: OMEPRAZOLE 20 MG CAPSULE PO SCH (09:22)
[2020-04-22] MEDS: MULTIVIT,THER IRON,CA,FA & MIN 1 TABLET PO SCH (09:22)
[2020-04-22] MEDS: HEPARIN 5,000 UNIT/ML VIAL SQ SCH (09:22)
--- NOTE | 2020-04-22 11:16 | Discharge Summary ---
Discharge Provider Provider Patient information: Note initiated : 04/22/20 at 11:13 am Service Date, if different from initiated Date: [] Patient: Felisha Murphy a 45 y/o F admitted on 04/20/20 for SOB . Chief Complaint: [] Discharge diagnosis Sepsis-secondary to pneumonia. Clinically improving with white count down from 20,000->9.8. Interval resolution noted on chest imaging. Hemoptysis-no mass lesion on chest CT. clinically resolved. Likely secondary pneumonia Multifocal pneumonia on chest CT- PSI>100, failed OP treatment, negative COVID- 19, mycoplasma IgM positive. Continue azithromycin/oral third-generation cephalosporin on discharge Anxiety disorder continue sertraline GERD continue PPI Hypothyroidism continue thyroxine Degenerative joint disease continue acetaminophen hydrocodone/methocarbamol Brief hospital course Ms. Murphy is a 45 year old F with a history of [id number] smoking/recurrent pneumonia with recent episode 2 months ago presents with recurrent hemoptysis that started early this morning. Patient also has associated fever, chills and shortness of breath. She has had multiple episodes of pneumonia to last year and then 2 months ago when she was treated at [place]. Because of progression of symptoms she was seen at primary care physician's office and was started on IV antibiotics. She failed to improve despite treatment and presents today with above symptoms. She denies sick contacts/headache, photophobia, rash. She endorses to productive sputum with frequent hemoptysis since this morning. She has been unable to perform ADLs. She denies exposure to parakeet/travel outside [place]. Patient work-up in ER was consistent with chest infiltrates. CT angiogram chest pending. White count over 20,000. Hospital service was consulted for insetting of failed outpatient treatment for pneumonia and hemoptysis. At the time of my evaluation patient is alert and oriented. She was able to answer most the questions. She endorses history as above. She denies being on blood thinners, weight loss. She quit smoking 2 years ago following a knee surgery. She denies weight loss, diarrhea, bloody emesis or abdominal pain. She denies changes in voice or swallowing difficulty. 04/21 patient doing a lot better. Denies hemoptysis. Much improved shortness of breath. Multifocal pneumonia currently on antibiotic coverage. No CT evidence of mass lesion. No fever chills nausea vomiting. Tolerating diet. White count improved from 20->13. Mycoplasma IgM positive. Continue ceftriaxone/erythromycin for community-acquired pneumonia coverage 04/22-patient discharging home with advised to continue antibiotic additional 5 days. Follow-up primary care physician 5 to 7 days. No overnight fever chills. Hemoptysis resolved. Date of admission: 04/20/20 16:22 Discharge date: 04/22/20 Primary care physician: Janes Kidd Consults: 04/20/20 14:29 Consult to Physician [CONS] Stat Comment: Consulting Provider: Thomas Zacarias Reason For Exam: Physician to Consult Discharge Meds Discharge Medications Home Medications sertraline 50 mg tablet 100 mg PO DAILY 12/05/15 [History Confirmed 04/20/20 Last Taken 04/20/20] zolpidem 10 mg tablet 10 mg PO HSP PRN 12/05/15 [History Confirmed 04/20/20 Last Taken 04/19/20] albuterol sulfate 8.5 gm IH Q4HP PRN #1 hfa.[email or web address] 10/06/18 [Rx Confirmed Last Taken 04/20/20] epinephrine 0.3 mg/0.3 mL injection, auto-injector 0.3 mg IM ONCE 11/10/18 [History Confirmed 04/20/20 Last Taken 01/26/19] gabapentin 300 mg capsule 900 mg PO TID cap 11/10/18 [History Confirmed 04/20/20 Last Taken 04/19/20] levothyroxine 200 mcg capsule 200 mcg PO DAILY 11/10/18 [History Confirmed 04/20/20 Last Taken 04/20/20] omeprazole 20 mg capsule,delayed release 20 mg PO DAILY cap 11/10/18 [History Confirmed 04/20/20 Last Taken 04/20/20] hydrocodone-acetaminophen 1 tab PO Q4HP PRN #40 tab 01/27/19 [Rx Confirmed 04/20/20 Last Taken 04/20/20] methocarbamol 750 mg tablet 750 mg PO TID #10 tab 10/22/19 [Rx Confirmed 04/20/20 Last Taken 04/19/20] metformin 500 mg PO QDAY 04/20/20 [History Confirmed 04/20/20 Last Taken 04/20/20] azithromycin 500 mg PO QDAY 3 Days #3 tab 04/22/20 [Rx Last Taken Unknown] cefdinir 300 mg PO BID #10 cap 04/22/20 [Rx Last Taken Unknown] COURSE Hospital Course Hospital course: . Discharge diagnosis: . Time Spent with Patient Time attestation: Total time spent providing and/or coordinating discharge services: EXAM Constitutional Vitals: Temp Pulse Resp BP Pulse Ox 96.6 F L 62 14 120/74 96 04/22/20 07:13 04/22/20 09:07 04/22/20 09:07 04/22/20 07:13 04/22/20 09:01 Discharge Data Data Completed and Pending Labs on day of discharge: Labs from last 24 hours 04/22/20 04/22/20 04/20/20 04:48 04:48 15:28 WBC 9.8 RBC 3.77 Hgb 11.5 Hct 36.0 MCV 95.5 MCH 30.5 MCHC 31.9 RDW 13.2 Plt Count 279 MPV 9.5 Total Counted 100 Seg Neutrophils % 54 Band Neutrophils % 2 Lymphocytes % 38 Monocytes % (Manual) 2 Eosinophils % (Manual) 3 Basophils % (Manual) 1 Platelet Estimate Normal RBC Morphology Normal Sodium 143 Potassium 4.3 Chloride 103 Carbon Dioxide 29 Anion Gap 11.0 BUN 11 Creatinine 0.6 GFR Calculation 111 Glucose 97 Uric Acid 4.7 Calcium 8.9 Phosphorus 4.9 H Magnesium 2.2 Total Bilirubin 0.2 Direct Bilirubin < 0.2 GGT 26 AST 17 ALT 21 Alkaline Phosphatase 70 Lactate Dehydrogenase 178 Total Protein 6.0 Albumin 3.6 Globulin 2.4 Albumin/Globulin Ratio 1.5 Triglycerides 151 H SARS-CoV-2 (PCR) Not detected Preliminary micro results at discharge 04/20/20 12:22 Blood Culture - Preliminary Blood 04/20/20 12:32 Blood Culture - Preliminary Blood Discharge Plan Patient/Caregiver Discharge Instructions Activity: increase activity as tolerated Diet: Regular Diet Activity Restrictions/Additional Instructions: Follow-up PCP 5 to 7 days Continue azithromycin for additional 3 days/oral cefdinir for 5 days Return to ER worsening fever chills hemoptysis shortness of breath Prescriptions: New cefdinir 300 MG capsule 300 mg PO BID Qty: 10 RF: 0 azithromycin 500 mg tablet 500 mg PO QDAY 3 Days Qty: 3 RF: 0 Continued zolpidem [Ambien] 10 mg tablet 10 mg PO HSP PRN (Reason: Sleep) RF: 0 sertraline 50 mg tablet 100 mg PO DAILY RF: 0 epinephrine 0.3 mg/0.3 mL auto-injector 0.3 mg IM ONCE RF: 0 levothyroxine 200 mcg capsule 200 mcg PO DAILY RF: 0 omeprazole 20 mg capsule,delayed release(DR/EC) 20 mg PO DAILY RF: 0 methocarbamol [Robaxin-750] 750 mg tablet 750 mg PO TID Qty: 10 RF: 0 albuterol sulfate 8.5 GM HFA aerosol inhaler 8.5 gm IH Q4HP PRN (Reason: Dyspnea) Qty: 1 RF: 0 gabapentin 300 mg capsule 900 mg PO TID RF: 0 hydrocodone-acetaminophen 1 TAB tablet 1 tab PO Q4HP PRN (Reason: Pain) Qty: 40 RF: 0 metformin 500 mg Tablet 500 mg PO QDAY RF: 0 Follow Up Plan Follow up with: Janes Kidd ARNP [Primary Care Provider] - Patient Disposition: Home, Self-Care Prognosis: Fair Rehab Potential: Fair I certify that the patient requires SNF services: No Overall status at discharge: patient is back to baseline Discharge Orders: Discharge Order (Routine); Ordered 04/22/20 Ordered By: Thomas FRANCISCO VTE Deep Vein Thrombosis/Pulmonary Embolism Present on Admission: No
[2020-04-25 08:54] LABS: Myeloperoxidase ABS <1.0 AI (<1.0); Proteinase-3-AB <1.0 AI (<1.0)
== END 2020-04-22 12:36 | disposition home or self-care (01) | DRG 871 ==
LOC: ED 11:16 → MEDSUR 16:22
PROVIDERS: ADMIT Internal Medicine; ATTEND Internal Medicine

== ENCOUNTER 2020-08-31 17:30 | Inpatient (IN) ==
[2020-08-31] MEDS ORDERED: IOPAMIDOL 100 ML BOTTLE IV ONE (17:31)
[2020-08-31] MEDS ORDERED: ALBUTEROL SULFATE 5 MG/ML NEB SOLUTION BOTTLE NEB ONE (18:29)
--- NOTE | 2020-08-31 18:34 | Emergency Department Note ---
SOB HPI General Chief Complaint: Shortness of Breath/Dyspnea Stated Complaint: SOB, wheezing, nausea Time Seen by Provider: 08/31/20 17:50 Source: patient Mode of arrival: ambulatory Limitations: no limitations History of Present Illness HPI Narrative: Narrative: 45-year-old male select male female who 2 days ago was seen at [facility] and was told that she had a viral pneumonia and then placed on do xycycline. She presents with increasing wheeziness, body achiness and worsening shortness of breath with some nausea as well. She was found to have 88% on room air in triage. She has a history of pneumonia with this being the third time in 6 months but usually gets once every 3 to 5 years. She has never been hospitalized for asthma but for pneumonia. She has not been on long-term steroids. She has been having what feels like fevers last evening as well as chills and sweats onset though 4 days ago. No chest pain. Has had a little bit of nausea and vomiting including up to 5 times. But no constipation diarrhea hematochezia. She is treated for thyroid. Has had some lightheaded and di zziness today. Has been told she has borderline diabetes. She gets asthma when she has upper respiratory major illness. She has been using a metered-dose inhaler several times today as well as albuterol nebulizer 3 times today. Yesterday a prescription was added in the form of Stiolto Respimat, and some cough syrup. She is on doxycycline. She has been coughing some sputum. She does not use o xygen at home. She has not been hospitalized for asthma but has for pneumonia. She has not been on long-term or persisting steroids. She has felt feverish with chills and sweats onset 4 days ago. Last evening was actually quite a bit worse. She denies chest pain. She has some accompanying nausea and vomiting with episodes up to 5 times. She initially became ill on Thursday the and then was seen 3 days later on Thursday. She had some blood in her sputum the day prior to that. That has improved. She does feel lightheaded. She has had poor p.o. intake due to poor appetite. She has been trying to drink some but this causes nausea. Food does not taste well for her but no change in smell. She has had a little bit of foot swelling. Has become somewhat dizzy today. Related Data Home Medications Medication Instructions Recorded Confirmed sertraline 50 mg tablet 100 mg PO DAILY 12/05/15 04/20/20 zolpidem 10 mg tablet 10 mg PO HSP PRN 12/05/15 04/20/20 epinephrine 0.3 mg/0.3 mL 0.3 mg IM ONCE 11/10/18 04/20/20 injection, auto-injector gabapentin 300 mg capsule 900 mg PO TID cap 11/10/18 04/20/20 levothyroxine 200 mcg capsule 200 mcg PO DAILY 11/10/18 04/20/20 omeprazole 20 mg capsule,delayed 20 mg PO DAILY cap 11/10/18 04/20/20 release metformin 500 mg PO QDAY 04/20/20 04/20/20 Previous Rx's Medication Instructions Recorded albuterol sulfate 8.5 gm IH Q4HP PRN #1 hfa.aer.ad 10/06/18 hydrocodone-acetaminophen 1 tab PO Q4HP PRN #40 tab 01/27/19 methocarbamol 750 mg tablet 750 mg PO TID #10 tab 10/22/19 cefdinir 300 mg PO BID #10 cap 04/22/20 Allergies Allergy/AdvReac Type Severity Reaction Status Date / Time levofloxacin [From Levaquin] Allergy Severe Anaphylaxis Verified 04/20/20 11:16 morphine Allergy Severe Anaphylaxis Verified 04/20/20 11:16 Quinolones Allergy Mild Hives Verified 04/20/20 16:37 Review of Systems ROS ROS Narrative: Narrative: No constipation diarrhea or hematochezia No hematuria or dysuria No back pain No other signs or symptoms of concern or problem discussed or revealed. [facility] Narrative Patient History Narrative: Narrative: Medical/Surgical/Family History All Active Problems (Updated 08/31/20 @ 18:03 by Steve Parra DO) Other urinary incontinence (Acute) MARCELINO positive (Acute) Back pain (Acute) Gait abnormality (Chronic) Impaired ambulation (Chronic) Fatigue (Chronic) Anemia (Chronic 09/24/18) Systolic murmur (Chronic 10/19/18) Asthma (Chronic 09/15/18) Chronic pain syndrome (Chronic 09/15/18) Complex regional pain syndrome (Chronic 09/24/18) Depressive disorder (Chronic 09/15/18) Opioid dependence (Chronic 09/24/18) Diabetes mellitus, type II (Chronic 09/10/12) Multiple joint pain (Acute 09/15/18) Diabetes mellitus type 2, controlled, without complications (Chronic) Osteoarthritis (arthritis due to wear and tear of joints) (Chronic) Arthrofibrosis of knee joint (Chronic) Obesity (Chronic) Frequency of micturition (Chronic) Impaired fasting glucose (Chronic) Depression with anxiety (Chronic) Low back pain (Chronic) Insomnia (Chronic 09/15/18) Esophageal reflux (Chronic 09/15/18) Hypothyroidism (Chronic 09/15/18) Medical History (Updated 08/31/20 @ 18:03 by Steve Parra DO) MARCELINO positive (Acute) Anemia (Chronic 09/24/18) Asthma (Chronic 09/15/18) Asthma with exacerbation (Inactive) Back pain (Acute) Chronic pain syndrome (Chronic 09/15/18) Complex regional pain syndrome (Chronic 09/24/18) Depression with anxiety (Chronic) Depressive disorder (Chronic 09/15/18) Diabetes mellitus, type II (Chronic 09/10/12) Esophageal reflux (Chronic 09/15/18) Fatigue (Chronic) Frequency of micturition (Chronic) Gait abnormality (Chronic) Hypothyroidism (Chronic 09/15/18) Impaired ambulation (Chronic) Impaired fasting glucose (Chronic) Insomnia (Chronic 09/15/18) Low back pain (Chronic) Multiple joint pain (Acute 09/15/18) Obesity (Chronic) Opioid dependence (Chronic 09/24/18) Pneumonia (Inactive) Systolic murmur (Chronic 10/19/18) Wheezing (Resolved) Surgical History (Updated 01/27/19 @ 11:37 by Mamadou Harper MD) History of bilateral salpingectomy (Chronic) partial History of section (Chronic) x3 History of cholecystectomy (Chronic) History of meniscectomy of right knee (Chronic) 1999 History of total abdominal hysterectomy and bilateral salpingo-oophorectomy (Chronic) 07/2009 with [place] sling urethropexy History of total right knee replacement (TKR) (Chronic 11/17/17) Family History (Updated 11/10/18 @ 09:22 by Malu Saha) Hodgkins disease Family/Other Maternal Aunt Diabetes mellitus Family/Other Maternal Grandmother Maternal Sister Heart disease Father Malignant neoplasm of breast Family/Other Maternal Social History Smoking Status: Former smoker Alcohol Intake Frequency: does not drink Substance Use: does not use Exam Narrative Narrative: Narrative: General Limitations: no limitations General appearance: Present alert, in no apparent distress, nontoxic and obese (Morbidly, primarily truncal.); Absent consternation and grimacing Head Head: Present atraumatic and normocephalic Eye Eye: Present normal appearance, PERRL and EOMI ENT ENT: Present normal oropharynx, mucous membranes dry (Mild-moderately.) and other (Patient's voice is somewhat raspy.) Neck Neck: Present trachea midline; Absent lymphadenopathy and thyromegaly Chest Chest: Present symmetric chest wall rise Respiratory Respiratory: Present rales/crackles (Mild in the right base.), wheezes (Mild and expiratory in multiple lung ziegler.) and other (Some 6 or 7 word dyspnea.); Absent respiratory distress, stridor, accessory muscle use and prolonged expiratory phase Cardiovascular Cardiovascular: Present regular rate and normal rhythm; Absent tachycardia, systolic murmur and diastolic murmur Adbominal Abdominal: Present soft; Absent distention, tenderness, guarding, rebound, rigidity, organomegaly and mass Extremities Extremities: Absent pedal edema, pretibial edema, calf tenderness and cyanosis Back Back: Neurological Neurological: Present alert and oriented X3 Psychiatric Psychiatric: Present normal affect, polite and pleasant; Absent depressed, agitated, anxious and poor eye contact Skin Skin: Present warm (WNL) and dry; Absent cyanosis and pallor Course Vital Signs Vital signs: Vital Signs Temperature 98.6 F 08/31/20 17:32 Pulse Rate 82 08/31/20 17:32 Respiratory Rate 22 08/31/20 17:32 Blood Pressure 111/53 08/31/20 17:32 Pulse Oximetry (%) 88 L 08/31/20 17:32 Temperature 98.6 F 08/31/20 17:32 Pulse Rate 74 08/31/20 18:17 Respiratory Rate 18 08/31/20 18:17 Blood Pressure 122/65 08/31/20 18:17 Pulse Oximetry (%) 97 08/31/20 18:17 [facility] Narrative Medical decision making narrative: Narrative: Worsening shortness of breath with recent diagnosis of pneumonia and fevers and chills with hypoxia on admission of 88%. Will do basic labs, chest x-ray. Consider viral versus bacterial pneumonia. Consider Covid. Tested for Covid 2 days ago and was negative. Due to change in shift patient's care will be transferred to Dr. Agarwal. Lab Data Result diagrams: 08/31/20 17:52 08/31/20 17:52 Discharge Plan Patient/Caregiver Discharge Instructions Pt seen by PILLAR WORKER/PA only: No Patient Disposition: Still a Patient Follow up with: Janes Kidd ARNP [Primary Care Provider] - Prescriptions: No Action zolpidem [Ambien] 10 mg tablet 10 mg PO HSP PRN (Reason: Sleep) RF: 0 sertraline 50 mg tablet 100 mg PO DAILY RF: 0 epinephrine 0.3 mg/0.3 mL auto-injector 0.3 mg IM ONCE RF: 0 levothyroxine 200 mcg capsule 200 mcg PO DAILY RF: 0 omeprazole 20 mg capsule,delayed release(DR/EC) 20 mg PO DAILY RF: 0 methocarbamol [Robaxin-750] 750 mg tablet 750 mg PO TID Qty: 10 RF: 0 albuterol sulfate 8.5 GM HFA aerosol inhaler 8.5 gm IH Q4HP PRN (Reason: Dyspnea) Qty: 1 RF: 0 gabapentin 300 mg capsule 900 mg PO TID RF: 0 hydrocodone-acetaminophen 1 TAB tablet 1 tab PO Q4HP PRN (Reason: Pain) Qty: 40 RF: 0 metformin 500 mg Tablet 500 mg PO QDAY RF: 0 cefdinir 300 MG capsule 300 mg PO BID Qty: 10 RF: 0
[2020-08-31 18:53] LABS: Hematocrit 33.6 % (36.0-48.0); Hemoglobin 11.1 g/dL (12.0-15.0); Mean Cell Volume 93.9 fL (80.0-100.0); Mean Platelet Volume 9.9 fL (7.4-10.4); Platelet Count 284 K/mcL (140-440); RBC 3.58 M/mcL (4.00-5.20); Red Cell Distribution Width 12.5 % (11.5-14.5); WBC 10.8 K/mcL (4.5-11.0)
[2020-08-31 19:08] LABS: ALT/SGPT 18 U/L (<40); AST/SGOT 21 U/L (<32); Albumin 3.7 gm/dL (3.2-5.2); Albumin/Globulin Ratio 1.3 (1.0-2.3); Alkaline Phosphatase 87 U/L (39-117); Bilirubin,Total 0.2 mg/dL (0.1-1.0); Blood Urea Nitrogen 12 mg/dL (6-20); Carbon Dioxide 27 mmol/L (22-30); Chloride 97 mmol/L (96-108); Globulin 2.9 gm/dL (2.2-3.7); Glomerular Filtration Rate 110; Glucose 134 mg/dL (70-105)
[2020-08-31 19:26] LABS: Eosinophils % (Manual) 1 % (0-7); Lymphocytes % 24 % (15-49); Monocytes % (Manual) 12 % (1-12); Platelet Estimate NORMAL (Normal); RBC Morphology NORMAL (Normal); Segmented Neutrophils % 63 % (38-78)
[2020-08-31] MEDS ORDERED: DEXAMETHASONE 10 MG/ML VIAL IV ONE (19:48)
--- NOTE | 2020-08-31 20:14 | Emergency Department Note ---
SOB HPI General Chief Complaint: Shortness of Breath/Dyspnea Stated Complaint: SOB, wheezing, nausea Time Seen by Provider: 08/31/20 17:50 Source: patient Mode of arrival: ambulatory Limitations: no limitations History of Present Illness HPI Narrative: Narrative: 45-year-old female was checked out to me at shift [facility] by Dr. Parra. I reviewed his note as well as previous admission for pneumonia/sepsis [address] Whaley. Patient says that she does not have a history of asthma but does have trouble breathing when she gets an infection. It is noted that she has been on doxycycline for bronchitis. Related Data Home Medications Medication Instructions Recorded Confirmed sertraline 50 mg tablet 100 mg PO DAILY 12/05/15 08/31/20 zolpidem 10 mg tablet 10 mg PO HSP PRN 12/05/15 08/31/20 epinephrine 0.3 mg/0.3 mL 0.3 mg IM ONCE 11/10/18 08/31/20 injection, auto-injector gabapentin 300 mg capsule 900 mg PO TID cap 11/10/18 08/31/20 levothyroxine 200 mcg capsule 250 mcg PO DAILY 11/10/18 08/31/20 omeprazole 20 mg capsule,delayed 20 mg PO DAILY cap 11/10/18 08/31/20 release metformin 500 mg PO QDAY 04/20/20 08/31/20 Previous Rx's Medication Instructions Recorded albuterol sulfate 8.5 gm IH Q4HP PRN #1 hfa.[email or web address] 10/06/18 hydrocodone-acetaminophen 1 tab PO Q4HP PRN #40 tab 01/27/19 Allergies Allergy/AdvReac Type Severity Reaction Status Date / Time levofloxacin [From Levaquin] Allergy Severe Anaphylaxis Verified 04/20/20 11:16 morphine Allergy Severe Anaphylaxis Verified 04/20/20 11:16 Quinolones Allergy Mild Hives Verified 04/20/20 16:37 Review of Systems ROS ROS Narrative: Narrative: PFSH Narrative Patient History Narrative: Narrative: Medical/Surgical/Family History All Active Problems (Updated 08/31/20 @ 20:19 by Tyrone Agarwal MD) Respiratory failure with hypoxia (Acute) Pneumonia due to virus (Acute) Other urinary incontinence (Acute) MARCELINO positive (Acute) Back pain (Acute) Gait abnormality (Chronic) Impaired ambulation (Chronic) Fatigue (Chronic) Anemia (Chronic 09/24/18) Systolic murmur (Chronic 10/19/18) Asthma (Chronic 09/15/18) Chronic pain syndrome (Chronic 09/15/18) Complex regional pain syndrome (Chronic 09/24/18) Depressive disorder (Chronic 09/15/18) Opioid dependence (Chronic 09/24/18) Diabetes mellitus, type II (Chronic 09/10/12) Multiple joint pain (Acute 09/15/18) Diabetes mellitus type 2, controlled, without complications (Chronic) Osteoarthritis (arthritis due to wear and tear of joints) (Chronic) Arthrofibrosis of knee joint (Chronic) Obesity (Chronic) Frequency of micturition (Chronic) Impaired fasting glucose (Chronic) Depression with anxiety (Chronic) Low back pain (Chronic) Insomnia (Chronic 09/15/18) Esophageal reflux (Chronic 09/15/18) Hypothyroidism (Chronic 09/15/18) Medical History MARCELINO positive (Acute) Anemia (Chronic 09/24/18) Asthma (Chronic 09/15/18) Asthma with exacerbation (Inactive) Back pain (Acute) Chronic pain syndrome (Chronic 09/15/18) Complex regional pain syndrome (Chronic 09/24/18) Depression with anxiety (Chronic) Depressive disorder (Chronic 09/15/18) Diabetes mellitus, type II (Chronic 09/10/12) Esophageal reflux (Chronic 09/15/18) Fatigue (Chronic) Frequency of micturition (Chronic) Gait abnormality (Chronic) Hypothyroidism (Chronic 09/15/18) Impaired ambulation (Chronic) Impaired fasting glucose (Chronic) Insomnia (Chronic 09/15/18) Low back pain (Chronic) Multiple joint pain (Acute 09/15/18) Obesity (Chronic) Opioid dependence (Chronic 09/24/18) Pneumonia (Inactive) Systolic murmur (Chronic 10/19/18) Wheezing (Resolved) Surgical History History of bilateral salpingectomy (Chronic) partial History of section (Chronic) x3 History of cholecystectomy (Chronic) History of meniscectomy of right knee (Chronic) 1999 History of total abdominal hysterectomy and bilateral salpingo-oophorectomy (Chronic) 07/2009 with [place] sling urethropexy History of total right knee replacement (TKR) (Chronic 11/17/17) Family History Father Heart disease Family/Other Hodgkins disease Maternal Aunt Diabetes mellitus Maternal Malignant neoplasm of breast Maternal Grandmother Diabetes mellitus Maternal Sister Diabetes mellitus Social History Smoking Status: Former smoker Alcohol Intake Frequency: does not drink Substance Use: does not use Exam Narrative Narrative: Narrative: On my reevaluation she has audible wheezing that I can hear from 6 feet away. She is currently requiring 4 L of oxygen via nasal cannula to keep her sats above 92%. She is sitting up and able to talk in compl ete sentences while on oxygen; however she cannot take a deep breath without cough General Limitations: no limitations Course Vital Signs Vital signs: Vital Signs Temperature 98.6 F 08/31/20 17:32 Pulse Rate 82 08/31/20 17:32 Respiratory Rate 22 08/31/20 17:32 Blood Pressure 111/53 08/31/20 17:32 Pulse Oximetry (%) 88 L 08/31/20 17:32 Temperature 98.6 F 08/31/20 17:32 Pulse Rate 81 08/31/20 20:27 Respiratory Rate 19 08/31/20 20:27 Blood Pressure 121/69 08/31/20 20:27 Pulse Oximetry (%) 97 08/31/20 20:27 MDM MDM Narrative Medical decision making narrative: Narrative: Respiratory failure noted with hypoxia. Likely secondary to reactive airways with bronchitis. Suspect viral versus bacterial . laboratory is unrevealing-she does not have a leukocytosis or lactic acidosis. Sherri rapid Covid test is negative; but this could be a false negative. As she will likely require admission now that she is requiring 4 L of oxygen we will do the cepheid rapid PCR test. CT angiogram of chest is ordered to make sure we are not missing thrombosis or other concerning feature. After getting a heart neb with 10 mg of albuterol over an hour we tried to take her off oxygen but she dropped into the mid 80s. ABG shows a pH of 7.44 PCO2 of 45 and PO2 of 71 on 4 L oxygen. She will require admission. We will start azithromycin for viral pneumonia versus atypical bacterial pneumonia. Also gave dose of dexamethasone [address] angiogram shows no PE but she does have a significant pneumonia. She continues to require 4 L. Discussed the case with our hospitalist, Dr. Jeter, he agreed to accept the patient for further care and evaluation in the hospital. Chest x-ray and CT scan could be consistent with Covid (in fact looks quite typical of ) so we will give her dose of remdesivir while we are waiting for the test results. I briefly relayed the results to the patient as well Lab Data Lab results reviewed: Yes I reviewed the patient's lab results. Result diagrams: 08/31/20 17:52 08/31/20 17:52 Labs: Lab Results 08/31/20 08/31/20 08/31/20 Range/Units 17:52 17:52 17:52 WBC 10.8 (4.5-11.0) K/mcL RBC 3.58 L (4.00-5.20) M/mcL Hgb 11.1 L (12.0-15.0) g/dL Hct 33.6 L (36.0-48.0) % MCV 93.9 (80.0-100.0) fL MCH 31.0 (26.0-34.0) pg MCHC 33.0 (31.0-36.0) g/dL RDW 12.5 (11.5-14.5) % Plt Count 284 (140-440) K/mcL MPV 9.9 (7.4-10.4) fL Seg Neutrophils % 63 (38-78) % Lymphocytes % 24 (15-49) % Monocytes % (Manual) 12 (1-12) % Eosinophils % (Manual) 1 (0-7) % Platelet Estimate Normal (Normal) RBC Morphology Normal (Normal) VBG Lactic Acid 1.6 (0.5-2.0) mmol/L Sodium 137 (133-145) mmol/L Potassium 3.3 (3.3-5.1) mmol/L Chloride 97 (96-108) mmol/L Carbon Dioxide 27 (22-30) mmol/L Anion Gap 13.0 (8.0-16.0) BUN 12 (6-20) mg/dL Creatinine 0.6 (0.6-1.1) mg/dL GFR Calculation 110 Glucose 134 H (70-105) mg/dL Calcium 9.0 (8.6-10.4) mg/dL Total Bilirubin 0.2 (0.1-1.0) mg/dL AST 21 (<32) U/L ALT 18 (<40) U/L Alkaline Phosphatase 87 (39-117) U/L Total Protein 6.6 (5.9-8.4) gm/dL Albumin 3.7 (3.2-5.2) gm/dL Globulin 2.9 (2.2-3.7) gm/dL Albumin/Globulin Ratio 1.3 (1.0-2.3) Radiology Data Radiology results reviewed: Yes I reviewed the patient's radiology results. Radiology results narrative: Chest x-ray shows patchy infiltrate consistent with viral pneumonia versus atypicals CT angiogram shows patchy infiltrate consistent with pneumonia but no significant PE Discharge Plan Patient/Caregiver Discharge Instructions Pt seen by SHELVING SUPERVISOR/PA only: No Clinical Impression: Pneumonia due to virus Respiratory failure with hypoxia Qualifiers: Chronicity: acute Qualified Code(s): J96.01 - Acute respiratory failure with hypoxia Patient Disposition: Xfer As Inpt ([facility]) Condition: Serious Follow up with: Janes Kidd ARNP [Primary Care Provider] - Prescriptions: No Action zolpidem [Ambien] 10 mg tablet 10 mg PO HSP PRN (Reason: Sleep) RF: 0 sertraline 50 mg tablet 100 mg PO DAILY RF: 0 epinephrine 0.3 mg/0.3 mL auto-injector 0.3 mg IM ONCE RF: 0 levothyroxine 200 mcg capsule 250 mcg PO DAILY RF: 0 omeprazole 20 mg capsule,delayed release(DR/EC) 20 mg PO DAILY RF: 0 albuterol sulfate 8.5 GM HFA aerosol inhaler 8.5 gm IH Q4HP PRN (Reason: Dyspnea) Qty: 1 RF: 0 gabapentin 300 mg capsule 900 mg PO TID RF: 0 hydrocodone-acetaminophen 1 TAB tablet 1 tab PO Q4HP PRN (Reason: Pain) Qty: 40 RF: 0 metformin 500 mg Tablet 500 mg PO QDAY RF: 0
[2020-08-31] MEDS ORDERED: AZITHROMYCIN 250 MG TABLET PO ONE (20:19)
[2020-08-31] MEDS ORDERED: REMDESIVIR 200 MG in 0.9 % SODIUM CHLORIDE 250 ML IV ONE (21:28)
--- NOTE | 2020-08-31 21:50 | Internal Med History&Physical ---
HPI History of Present Illness Patient information: Note initiated : 08/31/20 at 9:42 pm Service Date, if different from initiated Date: [] Patient: Felisha Murphy a 45 y/o F admitted on for SOB, wheezing, nausea. Chief Complaint: [] History of present illness: Ms. Murphy is a 45 year old F Presents to the ED with increased shortness of breath. Patient states Thursday she started feeling ill described as malaise weakness fatigue and then started developing cough productive of bloody sputum which per old notes she commonly gets hemoptysis when she gets pneumonia. She also developed shortness of breath. She is also had nausea vomiting off and on. The hemoptysis and cough improved but the shortness of breath worsened. She is also complained of fever and chills and wheezing. She has some chest pain with cough but otherwise no chest pain. Denies abdominal pain or diarrhea. She saw her primary care doctor on Thursday and received antibiotic inhaler and some cough medicine. However symptoms worsened and because of the severity and her shortness of breath she came to the ED where her sats were 88% on room air. As she subsequently required 4 L of oxygen although her sats now are the high 90s. She was afebrile here although she subjectively has felt fever. Labs are essentially unremarkable. CTA chest was done which showed bilateral groundglass opacities. Patient denies any known Covid exposure. Rapid Covid test is pending. She did have the flu vaccine when she was admitted and early fall Review of Systems: Pertinent positives as above plus headache. Denies abdominal pain/diarrhea. Remaining 10 point review of system reviewed negative PFSH PFSH All Active Problems (Updated 08/31/20 @ 20:19 by Tyrone Agarwal MD) Respiratory failure with hypoxia (Acute) Pneumonia due to virus (Acute) Other urinary incontinence (Acute) MARCELINO positive (Acute) Back pain (Acute) Gait abnormality (Chronic) Impaired ambulation (Chronic) Fatigue (Chronic) Anemia (Chronic 09/24/18) Systolic murmur (Chronic 10/19/18) Asthma (Chronic 09/15/18) Chronic pain syndrome (Chronic 09/15/18) Complex regional pain syndrome (Chronic 09/24/18) Depressive disorder (Chronic 09/15/18) Opioid dependence (Chronic 09/24/18) Diabetes mellitus, type II (Chronic 09/10/12) Multiple joint pain (Acute 09/15/18) Diabetes mellitus type 2, controlled, without complications (Chronic) Osteoarthritis (arthritis due to wear and tear of joints) (Chronic) Arthrofibrosis of knee joint (Chronic) Obesity (Chronic) Frequency of micturition (Chronic) Impaired fasting glucose (Chronic) Depression with anxiety (Chronic) Low back pain (Chronic) Insomnia (Chronic 09/15/18) Esophageal reflux (Chronic 09/15/18) Hypothyroidism (Chronic 09/15/18) Medical History MARCELINO positive (Acute) Anemia (Chronic 09/24/18) Asthma (Chronic 09/15/18) Asthma with exacerbation (Inactive) Back pain (Acute) Chronic pain syndrome (Chronic 09/15/18) Complex regional pain syndrome (Chronic 09/24/18) Depression with anxiety (Chronic) Depressive disorder (Chronic 09/15/18) Diabetes mellitus, type II (Chronic 09/10/12) Esophageal reflux (Chronic 09/15/18) Fatigue (Chronic) Frequency of micturition (Chronic) Gait abnormality (Chronic) Hypothyroidism (Chronic 09/15/18) Impaired ambulation (Chronic) Impaired fasting glucose (Chronic) Insomnia (Chronic 09/15/18) Low back pain (Chronic) Multiple joint pain (Acute 09/15/18) Obesity (Chronic) Opioid dependence (Chronic 09/24/18) Pneumonia (Inactive) Systolic murmur (Chronic 10/19/18) Wheezing (Resolved) Surgical History History of bilateral salpingectomy (Chronic) partial History of section (Chronic) x3 History of cholecystectomy (Chronic) History of meniscectomy of right knee (Chronic) 1999 History of total abdominal hysterectomy and bilateral salpingo-oophorectomy (Chronic) 07/2009 with [place] sling urethropexy History of total right knee replacement (TKR) (Chronic 11/17/17) Family History Father Heart disease Family/Other Hodgkins disease Maternal Aunt Diabetes mellitus Maternal Malignant neoplasm of breast Maternal Grandmother Diabetes mellitus Maternal Sister Diabetes mellitus Social History (Updated 10/23/19 @ 06:11 by ABHISHEK Freeman) education level: high school physical activity: none smoking status: Former smoker alcohol intake frequency: does not drink substance use type: does not use seatbelt use: always working smoke detector in home: Yes firearms in home: No MEDS/ALLERGIES Home Medications and Allergies Home Medications Medication Instructions Recorded Confirmed Type sertraline 50 mg tablet 100 mg PO DAILY 12/05/15 08/31/20 History zolpidem 10 mg tablet 10 mg PO HSP PRN 12/05/15 08/31/20 History albuterol sulfate 8.5 gm IH Q4HP PRN #1 hfa.aer.ad 10/06/18 08/31/20 Rx epinephrine 0.3 mg/0.3 mL 0.3 mg IM ONCE 11/10/18 08/31/20 History injection, auto-injector gabapentin 300 mg capsule 900 mg PO TID cap 11/10/18 08/31/20 History levothyroxine 200 mcg capsule 250 mcg PO DAILY 11/10/18 08/31/20 History omeprazole 20 mg capsule,delayed 20 mg PO DAILY cap 11/10/18 08/31/20 History release hydrocodone-acetaminophen 1 tab PO Q4HP PRN #40 tab 01/27/19 08/31/20 Rx metformin 500 mg PO QDAY 04/20/20 08/31/20 History Allergies Allergy/AdvReac Type Severity Reaction Status Date / Time levofloxacin [From Levaquin] Allergy Severe Anaphylaxis Verified 04/20/20 11:16 morphine Allergy Severe Anaphylaxis Verified 04/20/20 11:16 Quinolones Allergy Mild Hives Verified 04/20/20 16:37 EXAM Constitutional Vitals: Temp Pulse Resp BP Pulse Ox 98.6 F 81 19 121/69 97 08/31/20 17:32 08/31/20 20:27 08/31/20 20:27 08/31/20 20:27 08/31/20 20:27 Exam: General: Alert, Awake, No acute Distress, obese Eyes/N/T: EOMI, PERRL, dry MM Head/Neck: neck supple, normocephalic atraumatic CV: RRR, 2/6 SM, normal s1/s2 Pulm: Fine rales, rhonchi and wheezing b/l, Abd: soft, nontender, +BS x4 Ext: no clubbing/cyanosis/edema Neuro: Alert, no focal deficits, moves all extremities, CN 2-12 grossly intact, symmetrical strength b/l upper/lower, sensations intact b/l upper/lower Skin: warm/dry DATA Data Completed and Pending Labs: Labs from last 24 hours 08/31/20 08/31/20 08/31/20 17:52 17:52 17:52 WBC 10.8 RBC 3.58 L Hgb 11.1 L Hct 33.6 L MCV 93.9 MCH 31.0 MCHC 33.0 RDW 12.5 Plt Count 284 MPV 9.9 Seg Neutrophils % 63 Lymphocytes % 24 Monocytes % (Manual) 12 Eosinophils % (Manual) 1 Platelet Estimate Normal RBC Morphology Normal VBG Lactic Acid 1.6 Sodium 137 Potassium 3.3 Chloride 97 Carbon Dioxide 27 Anion Gap 13.0 BUN 12 Creatinine 0.6 GFR Calculation 110 Glucose 134 H Calcium 9.0 Total Bilirubin 0.2 AST 21 ALT 18 Alkaline Phosphatase 87 Total Protein 6.6 Albumin 3.7 Globulin 2.9 Albumin/Globulin Ratio 1.3 A/P Narrative A/P Narrative: A: *PNA: viral vs atypical -CT chest with bilateral opacities *Acute hypoxic respiratory failure: -4L NC in ED *Reactive airway disease: *Diabetes w/neuropathy: *Chronic pain/osteoarthritis: On narcotics *Depression: *Hypothyroidism: *Obese: *GERD: * P: -Rocephin/Azithro, pending BC/SC -Remdesivir until covid r/o -glucocorticoids -wean O2 as able -pending RVP/Covid/myco -IS/Acapella, nebs/RT - -SSI, metformin -f/u with Pulmonology for multiple admits for respiratory -ppx: lovenox/home ppi Time Spent With Patient Time: Total time spent is greater than 50% in coordination of care (as documented) at patient's floor/unit and/or counseling patient:
[2020-08-31] MEDS ORDERED: EPINEPHRINE 0.3 MG IM SCH (22:53)
[2020-08-31] MEDS ORDERED: AZITHROMYCIN 500 MG in DEXTROSE 5% IN WATER 250 ML IV SCH (22:53)
[2020-08-31] MEDS ORDERED: SENNOSIDES 1 TABLET PO PRN (22:53)
[2020-08-31] MEDS ORDERED: IPRATROPIUM/ALBUTEROL 3 ML AMPUL.NEB NEB PRN (22:53)
[2020-08-31] MEDS ORDERED: ACETAMINOPHEN 325 MG TABLET PO PRN (22:53)
[2020-08-31] MEDS ORDERED: POTASSIUM CHLORIDE 20 MEQ TABLET PO PRN ×2 (22:53)
[2020-08-31] MEDS ORDERED: 0.9 % SODIUM CHLORIDE 1,000 ML IV SCH (22:53)
[2020-08-31] MEDS ORDERED: cefTRIAXone 2 GM in DEXTROSE 5% IN WATER 50 ML IV SCH (22:53)
[2020-08-31] MEDS ORDERED: DEXTROSE 50% 50 ML VIAL IV PRN (22:53)
[2020-08-31] MEDS ORDERED: POTASSIUM CHLORIDE 40 MEQ in DEXTROSE 5% IN WATER 500 ML IV PRN (22:53)
[2020-08-31] MEDS ORDERED: REMDESIVIR 100 MG in 0.9 % SODIUM CHLORIDE 250 ML IV SCH (22:53)
[2020-08-31] MEDS ORDERED: ONDANSETRON 4 MG/2 ML VIAL IV PRN (22:53)
[2020-08-31] MEDS ORDERED: DEXTROSE 31 GM ORAL.SUSP PO PRN (22:53)
[2020-08-31] MEDS ORDERED: MAGNESIUM SULFATE 2 GM/50 ML BAG IV PRN (22:53)
[2020-08-31] MEDS ORDERED: cefTRIAXone 1 GM VIAL ONE (23:13)
[2020-08-31] MEDS ORDERED: IPRATROPIUM/ALBUTEROL 3 ML AMPUL.NEB NEB ONE (23:22)
[2020-08-31] MEDS: 0.9 % SODIUM CHLORIDE 10 ML SYRINGE IV SCH (23:25)
[2020-08-31] MEDS: IPRATROPIUM/ALBUTEROL 3 ML AMPUL.NEB NEB SCH (23:34)
[2020-09-01] MEDS ORDERED: HYDROcodone/APAP 10/325MG TABLET PO ONE (00:32)
[2020-09-01] MEDS ORDERED: ZOLPIDEM 5 MG TABLET ONE (01:54)
[2020-09-01] MEDS: 0.9 % SODIUM CHLORIDE 10 ML SYRINGE IV SCH ×3 (05:45→21:28)
[2020-09-01] MEDS: IPRATROPIUM/ALBUTEROL 3 ML AMPUL.NEB NEB SCH ×4 (05:46→19:45)
[2020-09-01 07:17] LABS: ALT/SGPT 17 U/L (<40); AST/SGOT 16 U/L (<32); Albumin 3.5 gm/dL (3.2-5.2); Albumin/Globulin Ratio 1.2 (1.0-2.3); Alkaline Phosphatase 66 U/L (39-117); Bilirubin,Direct < 0.2 mg/dL (<0.3); Bilirubin,Total < 0.2 mg/dL (0.1-1.0); Blood Urea Nitrogen 10 mg/dL (6-20); Calcium 8.9 mg/dL (8.6-10.4); Carbon Dioxide 27 mmol/L (22-30); Chloride 100 mmol/L (96-108); Globulin 2.9 gm/dL (2.2-3.7); Glomerular Filtration Rate 117; Glucose 129 mg/dL (70-105); Lactate Dehydrogenase 240 U/L (135-225); Phosphorous 3.3 mg/dL (2.5-4.5); Triglycerides 103 mg/dL (<150); Uric Acid 4.7 mg/dL (2.5-8.0)
[2020-09-01 07:19] LABS: Basophils # (Auto) 0.01 K/mcL (0.00-0.20); Basophils % (Auto) 0.2 % (0.0-2.0); Eosinophils # (Auto) 0 K/mcL (0.00-0.70); Eosinophils % (Auto) 0 % (0.0-7.0); Hematocrit 31.6 % (36.0-48.0); Hemoglobin 10.2 g/dL (12.0-15.0); Lymphocytes # (Auto) 1.08 K/mcL (1.50-4.80); Lymphocytes % (Auto) 16.7 % (15.0-49.0); Mean Cell Volume 94.6 fL (80.0-100.0); Mean Corpuscular HGB Conc 32.3 g/dL (31.0-36.0); Monocytes % (Auto) 3.1 % (1.0-12.0); Platelet Count 282 K/mcL (140-440); RBC 3.34 M/mcL (4.00-5.20); Red Cell Distribution Width 12.6 % (11.5-14.5); WBC 6.5 K/mcL (4.5-11.0)
[2020-09-01] MEDS ORDERED: IPRATROPIUM/ALBUTEROL 3 ML AMPUL.NEB NEB ONE (07:32)
[2020-09-01] MEDS: INSULIN LISPRO 1 UNIT/0.01 ML UNIT SQ SCH ×4 (07:35→21:28)
--- NOTE | 2020-09-01 08:09 | XRay Report ---
HISTORY: Pneumonia shortness of breath, hypoxia and wheezing FINDINGS: Generalized alveolar opacities are present throughout both lungs. Greatest consolidation is around the sandepe, right worse than left. Lung volumes are relatively small due to poor inspiration. The heart appears enlarged but is magnified by poor inspiration and portable technique. No pleural effusion is present. Comparison with the prior exam from 04/22/20 shows the alveolar opacities are new and the heart is larger. IMPRESSION: Bilateral alveolar opacities. This could be due to severe widespread bilateral pneumonia or pulmonary edema. Interpreted and Authenticated by: Puma Cary 09/01/20
--- NOTE | 2020-09-01 08:12 | Internal Med Progress Note ---
SUBJECTIVE Subjective Patient information: Note initiated : 09/01/20 at 8:09 am Service Date, if different from initiated Date: [] Patient: Felisha Murphy a 45 y/o F admitted on 08/31/20 for SOB, wheezing, nausea. Chief Complaint: [] Interval history: History of present illness: Ms. Murphy is a 45 year old F Presents to the ED with increased shortness of breath. Patient states Thursday she started feeling ill described as malaise weakness fatigue and then started developing cough productive of bloody sputum which per old notes she commonly gets hemoptysis when she gets pneumonia. She also developed shortness of breath. She is also had nausea vomiting off and on. The hemoptysis and cough improved but the shortness of breath worsened. She is also complained of fever and chills and wheezing. She has some chest pain with cough but otherwise no chest pain. Denies abdominal pain or diarrhea. She saw her primary care doctor on Thursday and received antibiotic inhaler and some cough medicine. However symptoms worsened and because of the severity and her shortness of breath she came to the ED where her sats were 88% on room air. As she subsequently required 4 L of oxygen although her sats now are the high 90s. She was afebrile here although she subjectively has felt fever. Labs are essentially unremarkable. CTA chest was done which showed bilateral groundglass opacities. Patient denies any known Covid exposure. Rapid Covid test is pending. She did have the flu vaccine when she was admitted and early fall 09/01 Patient has mild dry cough. She has shortness of breath much better than yesterday. She is on 4 L of cannula with good sats. Mild headache and some nausea. Review of Systems: denies fever/chills/vomiting/chest or abdominal pain/diarrhea. Otherwise see above. Constitutional Vitals: Vital Signs Temp Pulse Resp BP Pulse Ox 97 F 70 19 105/57 90 09/01/20 07:29 09/01/20 08:05 09/01/20 08:05 09/01/20 08:05 09/01/20 08:05 Period Temp Pulse Resp BP Sys/Pitts Pulse Ox Last 24 Hr 97 F-98.6 F 58-88 12-28 92-126/52-85 88-100 Intake and Output 0109/01/20 09/01/20 21:59 05:59 13:59 Intake Total 490 Output Total 425 Balance 65 Weight 120.202 kg 121.88 kg Intake & Output: Intake & Output 08/31/20 09/01/20 09/01/20 21:59 05:59 13:59 Intake Total 490 Output Total 425 Balance 65 Weight 120.202 kg 121.88 kg Intake: IV 250 Veklury 200 mg In Sodium 250 Chloride 0.9% 250 ml @ 500 mls/ hr IV ONCE ONE Rx#:[id number] Oral 240 Output: Void Amount 425 Other: Urine Appearance Cloudy Urine Color Bright Yellow Urine Odor Strong Exam: General: Alert, Awake, No acute Distress, obese Eyes/N/T: EOMI, Head/Neck: neck supple, CV: RRR, 2/6 SM, normal s1/s2 Pulm: b/l rhonchi, no wheezing today Abd: soft, nontender, +BS x4 Ext: no clubbing/cyanosis, trace b/l LE edema Neuro: Alert, no focal deficits, moves all extremities, Skin: warm/dry OBJ DATA Labs CBC & Chem 7: 09/01/20 05:35 09/01/20 05:35 Labs: Abnormal Lab Results 09/01/20 09/01/20 08/31/20 05:35 05:35 17:52 RBC 3.34 L Hgb 10.2 L Hct 31.6 L Neut % (Auto) 80.0 H Lymph # (Auto) 1.08 L Creatinine 0.5 L Glucose 129 H Lactate Dehydrogenase 240 H C-Reactive Protein Procalcitonin Mycoplasma pneumon IgM Positive A 08/31/20 08/31/20 08/31/20 17:52 17:52 17:52 RBC Hgb Hct Neut % (Auto) Lymph # (Auto) Creatinine Glucose 134 H Lactate Dehydrogenase C-Reactive Protein 12.80 H Procalcitonin 0.59 H Mycoplasma pneumon IgM 08/31/20 17:52 RBC 3.58 L Hgb 11.1 L Hct 33.6 L Neut % (Auto) Lymph # (Auto) Creatinine Glucose Lactate Dehydrogenase C-Reactive Protein Procalcitonin Mycoplasma pneumon IgM Meds: Medications Acetaminophen (Tylenol) 650 mg PO Q6HP PRN PRN Reason: PAIN/FEVER > 101 Hydrocodone Bitart/Acetaminophen ([place] 10/325mg) 1 tab PO Q4HP PRN; Protocol PRN Reason: Pain Albuterol/Ipratropium (Duoneb) 3 ml NEB Q4HP PRN PRN Reason: Shortness Of Breath Albuterol/Ipratropium (Duoneb) 3 ml NEB Q6H [facility] Last Admin: 09/01/20 05:46 Dose: Not Given Documented by: Dexamethasone (Decadron) 10 mg PO DAILY KAYLEE Dextrose (Dextrose 50%) 0 ml IV UD PRN PRN Reason: Hypoglycemia Diagnostic Test (Pha) (Accu-Chek) 1 each FS ACHS KAYLEE Last Admin: 09/01/20 07:34 Dose: 1 each Documented by: Docusate Sodium (Colace) 100 mg PO BID KAYLEE Enoxaparin Sodium (Lovenox) 40 mg SQ DAILY KAYLEE Gabapentin (Neurontin) 900 mg PO TID KAYLEE Glucose (Insta-Glucose) 15 gm PO PRN PRN PRN Reason: Hypoglycemia Potassium Chloride 40 meq/ (Dextrose) 520 mls @ 130 mls/hr IV UD PRN PRN Reason: Potassium < 3 Magnesium Sulfate (Magnesium Sulfate) 2 gm in 50 mls @ 50 mls/hr IV UD PRN PRN Reason: Magnesium </= 1.6 Sodium Chloride (Sodium Chloride 0.9%) 1,000 mls @ 100 mls/hr IV .Q10H KAYLEE Stop: 09/01/20 08:52 Last Admin: 09/01/20 00:27 Dose: 100 mls/hr Documented by: Azithromycin 500 mg/ Dextrose 250 mls @ 250 mls/hr IV DAILY KAYLEE; Protocol Stop: 09/02/20 09:59 Ceftriaxone Sodium 2 gm/ (Dextrose) 50 mls @ 100 mls/hr IV DAILY [facility]; Protocol REMDESIVIR 100 mg/ Sodium (Chloride) 250 mls @ 500 mls/hr IV DAILY [facility] Stop: 09/04/20 09:29 Insulin Human Lispro (Humalog) 0 unit SQ ACHS [facility]; Protocol Last Admin: 09/01/20 07:35 Dose: Not Given Documented by: Levothyroxine Sodium (Synthroid) 250 mcg PO QAMAC KAYLEE Metformin HCl (Glucophage) 500 mg PO QAMCC KAYLEE Mupirocin (Bactroban Oint 2%) 1 dose TOPICAL BID KAYLEE Omeprazole (Prilosec) 20 mg PO ACB KAYLEE Ondansetron HCl (Zofran) 4 mg IV Q4HP PRN PRN Reason: Nausea And Vomiting Potassium Chloride (Kdur) 40 meq PO UD PRN PRN Reason: Potssium is 3-3.5 Potassium Chloride (Kdur) 40 meq PO UD PRN PRN Reason: Potassium < 3 Senna (Senokot) 2 tab PO DAILYP PRN PRN Reason: Constipation Sertraline HCl (Zoloft) 100 mg PO DAILY [facility] Sodium Chloride (Saline Flush) 10 ml IV Q8 [facility] Last Admin: 09/01/20 05:45 Dose: Not Given Documented by: Zolpidem Tartrate (Ambien) 10 mg PO HSP PRN PRN Reason: Insomnia A/P Narrative A/P Narrative: A: *PNA: atypical bacterial vs viral -CT chest with bilateral opacities -RVP/Covid/strep neg, PCT elevated -Mycoplasma IgM positive (was + in April, IgM can persist in adults) *Acute hypoxic respiratory failure: -on 4L NC *Reactive airway disease: *Diabetes w/neuropathy: *Chronic pain/osteoarthritis: On narcotics *Depression: *Hypothyroidism: *Obese: *GERD: * P: -Rocephin/Azithro, pending BC/SC -Mycoplasma confirmatory lab send out -glucocorticoids -IS/Acapella, nebs/RT -wean O2 as able -SSI, metformin -f/u with Pulmonology for multiple admits for respiratory -ppx: lovenox/home ppi Time Spent With Patient Time: Total time spent is greater than 50% in coordination of care (as documented) at patient's floor/unit and/or counseling patient: QUALITY Stroke Symptom Onset Unknown: No VTE Deep Vein Thrombosis/Pulmonary Embolism Present on Admission: No
--- NOTE | 2020-09-01 08:20 | Cat Scan Report ---
History: Short of breath, wheezing and pulmonary infiltrates seen on chest x-ray TECHNIQUE: The chest was imaged following injection of intravenous nonionic contrast. Sagittal, coronal and axial MIPS images were created. The radiation exposure was limited using dose reduction technology. FINDINGS: Patient was unable to hold her breath during the examination resulting in motion artifact. The central pulmonary arteries are normal without evidence of emboli. The peripheral branches are partially obscured by motion artifact and the surrounding pulmonary infiltrates. There are widespread alveolar infiltrates throughout both lungs. This has a patchy distribution. Similar finding was present on a prior chest CT done on 04/20/20 but has since become worse. No pleural effusion is present. There are a few enlarged lymph nodes in the right hilum which measure up to 1.8 cm. Largest lymph node in the mediastinum measures 1 cm in the pretracheal retrocaval space. The lymph nodes have increased in size since the prior exam. Heart is upper limits of normal in size. There is no pericardial effusion. Aorta is normal caliber. There is minimal plaque formation in the aortic arch. Central airways are normal. There is mild fatty infiltration of the liver. IMPRESSION: Widespread infiltrates throughout both lungs. The pattern is more consistent with pneumonia rather than pulmonary edema. No evidence of central pulmonary emboli Interpreted and Authenticated by: Puma Cary 09/01/20
[2020-09-01] MEDS: metFORMIN 500 MG TAB.XL.24H PO SCH (08:26)
[2020-09-01] MEDS: DEXAMETHASONE 4 MG TABLET PO SCH (08:28)
[2020-09-01] MEDS: SERTRALINE 50 MG TABLET PO SCH (08:28)
[2020-09-01] MEDS: GABAPENTIN 300 MG CAPSULE PO SCH ×3 (08:28→21:26)
[2020-09-01] MEDS: MUPIROCIN OINT 2% 22GM TOPICAL SCH ×2 (08:28→21:28)
[2020-09-01] MEDS: OMEPRAZOLE 20 MG CAPSULE PO SCH (08:29)
[2020-09-01] MEDS: LEVOTHYROXINE 125 MCG TABLET PO SCH (08:29)
[2020-09-01] MEDS: DOCUSATE SODIUM 100 MG CAPSULE PO SCH ×2 (08:29→21:27)
[2020-09-01] MEDS: ENOXAPARIN 40 MG/0.4 ML SYRINGE SQ SCH (08:30)
[2020-09-01] MEDS: AZITHROMYCIN 500 MG in DEXTROSE 5% IN WATER 250 ML IV SCH (08:47)
[2020-09-01] MEDS: HYDROcodone/APAP 10/325MG TABLET PO PRN ×3 (08:50→21:26)
[2020-09-01] MEDS ORDERED: metFORMIN 500 MG TABLET PO SCH (09:00)
[2020-09-01] MEDS ORDERED: REMDESIVIR 100 MG in 0.9 % SODIUM CHLORIDE 250 ML IV SCH (13:00)
[2020-09-01] MEDS: cefTRIAXone 2 GM in DEXTROSE 5% IN WATER 50 ML IV SCH (14:53)
--- NOTE | 2020-09-01 15:48 | Internal Med Progress Note ---
SUBJECTIVE Subjective Patient information: Note initiated : 09/01/20 at 3:40 pm Service Date, if different from initiated Date: [] Patient: Felisha Murphy a 45 y/o F admitted on 08/31/20 for SOB, wheezing, nausea. Chief Complaint: [] Interval history: History of present illness: Ms. Murphy is a 45 year old F Presents to the ED with increased shortness of breath. Patient states Thursday she started feeling ill described as malaise weakness fatigue and then started developing cough productive of bloody sputum which per old notes she commonly gets hemoptysis when she gets pneumonia. She also developed shortness of breath, fever, chill, and wheezing as well as intermittent nausea and vomiting. The hemoptysis and cough improved but the shortness of breath worsened. She had some chest pain with cough but otherwise no chest pain. Denies abdominal pain or diarrhea. She saw her primary care doctor on Thursday and received antibiotic inhaler and some cough medicine gowever symptoms worsened and because of the severity and her shortness of breath she came to the ED where her sats were 88% on room air. In the ED she required 4 L of oxygen. She was afebrile here although she subjectively has felt febrile. Labs were essentially unremarkable. CTA chest was done which showed bilateral ground glass opacities. Patient denies any known Covid exposure. Rapid Covid test is pending. She did have the flu vaccine when she was admitted and early fall 09/01 Patient has mild dry cough. She has shortness of breath much better than yesterday. She is on 4 L of cannula with good sats. Mild headache and some nausea. 09/02 Improved oxygen requirement. Multiple short runs of V-tach, ECHO ordered. Review of Systems: denies fever/chills/vomiting/chest or abdominal pain/diarrhea. Otherwise see above. Constitutional Vitals: Vital Signs Temp Pulse Resp BP Pulse Ox 97.3 F 53 L 18 112/50 95 09/01/20 12:01 09/01/20 12:17 09/01/20 14:00 09/01/20 12:01 09/01/20 14:00 Period Temp Pulse Resp BP Sys/Pitts Pulse Ox Last 24 Hr 97 F-98.6 F 52-88 12-28 92-126/50-85 88-100 Intake and Output 09/01/20 09/01/20 09/01/20 05:59 13:59 21:59 Intake Total 490 1422 Output Total 425 375 750 Balance 65 1047 -750 Weight 121.88 kg Intake & Output: Intake & Output 09/01/20 09/01/20 09/01/20 05:59 13:59 21:59 Intake Total 490 1422 Output Total 425 375 750 Balance 65 1047 -750 Weight 121.88 kg Intake: IV 250 1242 Sodium Chloride 0.9% 1,000 ml @ 1000 100 mls/hr IV .Q10H KAYLEE Rx#: [id number] Zithromax 500 mg In Dextrose 5% 242 in Water 250 ml @ 250 mls/hr IV DAILY KAYLEE Rx#:[id number] Veklury 200 mg In Sodium 250 Chloride 0.9% 250 ml @ 500 mls/ hr IV ONCE ONE Rx#:[id number] Oral 240 180 Output: Void Amount 425 375 750 Other: Meal Breakfast Percent of Meal Consumed 75% Feeding Ability Independent Urine Appearance Cloudy Clear Urine Color Bright Yellow Light Nikia Bright Yellow Urine Odor Strong Normal Normal Exam: General: Alert, Awake, No acute Distress, obese Eyes/N/T: EOMI, Head/Neck: neck supple, CV: RRR, 2/6 SM, normal s1/s2 Pulm: b/l rhonchi, no wheezing today Abd: soft, nontender, +BS x4 Ext: no clubbing/cyanosis, trace b/l LE edema Neuro: Alert, no focal deficits, moves all extremities, Skin: warm/dry OBJ DATA Labs CBC & Chem 7: 09/01/20 05:35 09/02/20 05:25 Labs: Abnormal Lab Results 09/01/20 09/01/20 08/31/20 05:35 05:35 17:52 RBC 3.34 L Hgb 10.2 L Hct 31.6 L Neut % (Auto) 80.0 H Lymph # (Auto) 1.08 L Creatinine 0.5 L Glucose 129 H Lactate Dehydrogenase 240 H C-Reactive Protein Procalcitonin Mycoplasma pneumon IgM Positive A 08/31/20 08/31/20 08/31/20 17:52 17:52 17:52 RBC Hgb Hct Neut % (Auto) Lymph # (Auto) Creatinine Glucose 134 H Lactate Dehydrogenase C-Reactive Protein 12.80 H Procalcitonin 0.59 H Mycoplasma pneumon IgM 08/31/20 17:52 RBC 3.58 L Hgb 11.1 L Hct 33.6 L Neut % (Auto) Lymph # (Auto) Creatinine Glucose Lactate Dehydrogenase C-Reactive Protein Procalcitonin Mycoplasma pneumon IgM Meds: Medications Acetaminophen (Tylenol) 650 mg PO Q6HP PRN PRN Reason: PAIN/FEVER > 101 Hydrocodone Bitart/Acetaminophen ([place] 10/325mg) 1 tab PO Q4HP PRN; Protocol PRN Reason: Pain Last Admin: 09/01/20 15:01 Dose: 1 tab Documented by: Albuterol/Ipratropium (Duoneb) 3 ml NEB Q4HP PRN PRN Reason: Shortness Of Breath Last Admin: 09/01/20 07:40 Dose: 3 ml Documented by: Albuterol/Ipratropium (Duoneb) 3 ml NEB Q6HRT [facility] Last Admin: 09/01/20 14:05 Dose: Not Given Documented by: Dexamethasone (Decadron) 10 mg PO DAILY [facility] Last Admin: 09/01/20 08:28 Dose: 10 mg Documented by: Dextrose (Dextrose 50%) 0 ml IV UD PRN PRN Reason: Hypoglycemia Diagnostic Test (Pha) (Accu-Chek) 1 each FS ACHS [facility] Last Admin: 09/01/20 12:04 Dose: 1 each Documented by: Docusate Sodium (Colace) 100 mg PO BID [facility] Last Admin: 09/01/20 08:29 Dose: 100 mg Documented by: Enoxaparin Sodium (Lovenox) 40 mg SQ DAILY [facility] Last Admin: 09/01/20 08:30 Dose: 40 mg Documented by: Gabapentin (Neurontin) 900 mg PO TID [facility] Last Admin: 09/01/20 14:54 Dose: 900 mg Documented by: Glucose (Insta-Glucose) 15 gm PO PRN PRN PRN Reason: Hypoglycemia Potassium Chloride 40 meq/ (Dextrose) 520 mls @ 130 mls/hr IV UD PRN PRN Reason: Potassium < 3 Magnesium Sulfate (Magnesium Sulfate) 2 gm in 50 mls @ 50 mls/hr IV UD PRN PRN Reason: Magnesium </= 1.6 Azithromycin 500 mg/ Dextrose 250 mls @ 250 mls/hr IV DAILY [facility]; Protocol Stop: 09/02/20 09:59 Last Infusion: 09/01/20 09:45 Dose: 0 mls/hr Documented by: Ceftriaxone Sodium 2 gm/ (Dextrose) 50 mls @ 100 mls/hr IV DAILY [facility]; Protocol Last Admin: 09/01/20 14:53 Dose: 100 mls/hr Documented by: Insulin Human Lispro (Humalog) 0 unit SQ ACHS [facility]; Protocol Last Admin: 09/01/20 12:04 Dose: Not Given Documented by: Levothyroxine Sodium (Synthroid) [facility] mcg [facility] Last Admin: 09/01/20 08:29 Dose: 250 mcg Documented by: [facility]) [facility] Last Admin: 09/01/20 08:26 Dose: Not Given Documented by: Mupirocin (Bactroban Oint 2%) 1 dose TOPICAL BID [facility] Last Admin: 09/01/20 08:28 Dose: 1 dose Documented by: Omeprazole (Prilosec) 20 mg PO ACB [facility] Last Admin: 09/01/20 08:29 Dose: 20 mg Documented by: Ondansetron HCl (Zofran) 4 mg IV Q4HP PRN PRN Reason: Nausea And Vomiting Last Admin: 09/01/20 09:10 Dose: 4 mg Documented by: Potassium Chloride (Kdur) 40 meq PO UD PRN PRN Reason: Potssium is 3-3.5 Potassium Chloride (Kdur) 40 meq PO UD PRN PRN Reason: Potassium < 3 Senna (Senokot) 2 tab PO DAILYP PRN PRN Reason: Constipation Sertraline HCl (Zoloft) 100 mg PO DAILY [facility] Last Admin: 09/01/20 08:28 Dose: 100 mg Documented by: Sodium Chloride (Saline Flush) 10 ml IV Q8 [facility] Last Admin: 09/01/20 14:54 Dose: Not Given Documented by: Zolpidem Tartrate (Ambien) 10 mg PO HSP PRN PRN Reason: Insomnia A/P Narrative A/P Narrative: ASSESSMENT: 45 year old female with a history of reactive airway disease, DM II, hypothyroidism, depression, GERD, and obesity admitted for acute hypoxic respiratory failure in the setting of bilateral opacities seen on CT chest. #Bilateral pneumonia: atypical bacterial vs viral vs inflammatory -CT chest with bilateral opacities -RVP/Covid/strep neg, PCT elevated -Mycoplasma IgM positive (was + in April, IgM can persist in adults) #Acute hypoxic respiratory failure-improved #Hx of Reactive airway disease: #Diabetes mellitus w/neuropathy: #Chronic pain/osteoarthritis: On narcotics #Depression: #Hypothyroidism: #Obese: #GERD: #Possible short runs of V-tach P: -Rocephin/Azithro, pending BC/SC -Mycoplasma confirmatory lab send out -glucocorticoids -IS/Acapella, nebs/RT -wean O2 as able -SSI, metformin -f/u with Pulmonology for multiple admits for respiratory -ECHO -ppx: lovenox/home ppi Time Spent With Patient Time: Total time spent is greater than 50% in coordination of care (as documented) at patient's floor/unit and/or counseling patient: 25 QUALITY Stroke Symptom Onset Unknown: No VTE Deep Vein Thrombosis/Pulmonary Embolism Present on Admission: No
[2020-09-01] MEDS ORDERED: ZOLPIDEM 5 MG TABLET PO PRN (21:00)
[2020-09-02] MEDS: IPRATROPIUM/ALBUTEROL 3 ML AMPUL.NEB NEB SCH ×4 (01:57→19:18)
[2020-09-02] MEDS: HYDROcodone/APAP 10/325MG TABLET PO PRN ×3 (04:19→20:46)
[2020-09-02] MEDS: 0.9 % SODIUM CHLORIDE 10 ML SYRINGE IV SCH ×3 (04:20→20:47)
[2020-09-02 07:14] LABS: ALT/SGPT 15 U/L (<40); AST/SGOT 16 U/L (<32); Albumin 3.2 gm/dL (3.2-5.2); Albumin/Globulin Ratio 1.1 (1.0-2.3); Alkaline Phosphatase 67 U/L (39-117); Bilirubin,Direct < 0.2 mg/dL (<0.3); Bilirubin,Total < 0.2 mg/dL (0.1-1.0); Blood Urea Nitrogen 13 mg/dL (6-20); Carbon Dioxide 30 mmol/L (22-30); Chloride 102 mmol/L (96-108); Glomerular Filtration Rate 117; Glucose 92 mg/dL (70-105); Lactate Dehydrogenase 293 U/L (135-225); Triglycerides 114 mg/dL (<150); Uric Acid 4.3 mg/dL (2.5-8.0)
[2020-09-02] MEDS: LEVOTHYROXINE 125 MCG TABLET PO SCH (07:28)
[2020-09-02] MEDS: OMEPRAZOLE 20 MG CAPSULE PO SCH (07:28)
[2020-09-02] MEDS: metFORMIN 500 MG TAB.XL.24H PO SCH (07:30)
[2020-09-02] MEDS: INSULIN LISPRO 1 UNIT/0.01 ML UNIT SQ SCH ×4 (07:42→20:45)
--- NOTE | 2020-09-02 09:36 | XRay Report ---
HISTORY: Short of breath, wheezing, follow-up pulmonary infiltrates FINDINGS: There are moderate generalized alveolar infiltrates in both lungs with the greatest involvement in the lower lobes. These have improved since 08/31/20. Lung volumes remain relatively small due to suboptimal inspiration. There is no pleural effusion or pneumothorax. Heart size is within upper limits of normal. Moderate arthritis is present in both shoulders. IMPRESSION: Improving bilateral pulmonary infiltrates Interpreted and Authenticated by: Puma Cary 09/02/20
[2020-09-02] MEDS: GABAPENTIN 300 MG CAPSULE PO SCH ×3 (09:52→20:46)
[2020-09-02] MEDS: AZITHROMYCIN 500 MG in DEXTROSE 5% IN WATER 250 ML IV SCH (09:52)
[2020-09-02] MEDS: MUPIROCIN OINT 2% 22GM TOPICAL SCH ×2 (09:52→21:34)
[2020-09-02] MEDS: ENOXAPARIN 40 MG/0.4 ML SYRINGE SQ SCH (09:52)
[2020-09-02] MEDS: DOCUSATE SODIUM 100 MG CAPSULE PO SCH ×2 (09:53→20:46)
[2020-09-02] MEDS: DEXAMETHASONE 4 MG TABLET PO SCH (09:53)
[2020-09-02] MEDS: SERTRALINE 50 MG TABLET PO SCH (09:53)
[2020-09-02] MEDS: cefTRIAXone 2 GM in DEXTROSE 5% IN WATER 50 ML IV SCH (09:53)
[2020-09-02] MEDS ORDERED: SENNOSIDES 1 TABLET PO PRN (14:25)
[2020-09-02] MEDS ORDERED: DEXTROSE 50% 50 ML VIAL IV PRN (14:25)
[2020-09-02] MEDS ORDERED: MAGNESIUM SULFATE 2 GM/50 ML BAG IV PRN (14:25)
[2020-09-02] MEDS ORDERED: IPRATROPIUM/ALBUTEROL 3 ML AMPUL.NEB NEB PRN (14:25)
[2020-09-02] MEDS ORDERED: POTASSIUM CHLORIDE 20 MEQ TABLET PO PRN ×2 (14:25)
[2020-09-02] MEDS ORDERED: DEXTROSE 31 GM ORAL.SUSP PO PRN (14:25)
[2020-09-02] MEDS ORDERED: POTASSIUM CHLORIDE 40 MEQ in DEXTROSE 5% IN WATER 500 ML IV PRN (14:25)
[2020-09-02] MEDS ORDERED: ONDANSETRON 4 MG/2 ML VIAL IV PRN (14:25)
[2020-09-02] MEDS: ACETAMINOPHEN 325 MG TABLET PO PRN (19:07)
[2020-09-02] MEDS ORDERED: ZOLPIDEM 5 MG TABLET PO PRN (21:00)
[2020-09-03] MEDS: IPRATROPIUM/ALBUTEROL 3 ML AMPUL.NEB NEB SCH ×2 (01:13→06:58)
[2020-09-03] MEDS ORDERED: OMEPRAZOLE 20 MG CAPSULE PO SCH (07:30)
[2020-09-03] MEDS ORDERED: LEVOTHYROXINE 125 MCG TABLET PO SCH (07:30)
[2020-09-03] MEDS: 0.9 % SODIUM CHLORIDE 10 ML SYRINGE IV SCH ×2 (07:32→14:25)
[2020-09-03] MEDS: INSULIN LISPRO 1 UNIT/0.01 ML UNIT SQ SCH ×2 (07:32→11:46)
[2020-09-03] MEDS: HYDROcodone/APAP 10/325MG TABLET PO PRN (07:33)
[2020-09-03] MEDS ORDERED: metFORMIN 500 MG TAB.XL.24H PO SCH (08:00)
[2020-09-03] MEDS: DOCUSATE SODIUM 100 MG CAPSULE PO SCH (08:28)
[2020-09-03] MEDS: GABAPENTIN 300 MG CAPSULE PO SCH ×2 (08:29→14:25)
[2020-09-03] MEDS: MUPIROCIN OINT 2% 22GM TOPICAL SCH (08:30)
[2020-09-03] MEDS ORDERED: SERTRALINE 50 MG TABLET PO SCH (09:00)
[2020-09-03] MEDS ORDERED: DEXAMETHASONE 4 MG TABLET PO SCH (09:00)
[2020-09-03] MEDS ORDERED: CEFUROXIME 500 MG TABLET PO SCH (09:00)
[2020-09-03] MEDS ORDERED: cefTRIAXone 2 GM in DEXTROSE 5% IN WATER 50 ML IV SCH (09:00)
[2020-09-03] MEDS ORDERED: ENOXAPARIN 40 MG/0.4 ML SYRINGE SQ SCH (09:00)
[2020-09-03] MEDS: ACETAMINOPHEN 325 MG TABLET PO PRN (10:35)
--- NOTE | 2020-09-03 12:05 | Discharge Summary ---
Discharge Provider Provider Patient information: Note initiated : 09/03/20 at 11:46 am Service Date, if different from initiated Date: [] Patient: Felisha Murphy 45 y/o F admitted on 08/31/20 for SOB, wheezing, nausea. Chief Complaint: [Pneumonia/pneumonitis] Date of admission: 08/31/20 22:49 Discharge date: 09/03/20 Primary care physician: Janes Kidd Consults: 08/31/20 Consult to Physician [CONS] Stat Comment: Consulting Provider: Barry Jeter Reason For Exam: Physician to Consult Discharge Meds Discharge Medications Home Medications sertraline 50 mg tablet 150 mg PO DAILY 12/05/15 [History Confirmed 09/01/20 Last Taken 08/31/20 08:00] zolpidem 10 mg tablet 10 mg PO HSP PRN 12/05/15 [History Confirmed 09/01/20 Last Taken 08/30/20 23:00] albuterol sulfate 8.5 gm IH Q4HP PRN #1 hfa.aer.ad 10/06/18 [Rx Confirmed 09/01/20 Last Taken 08/31/20 12:00] epinephrine 0.3 mg/0.3 mL injection, auto-injector 0.3 mg IM ONCE 11/10/18 [History Confirmed 09/01/20 Last Taken 01/26/19] levothyroxine 200 mcg capsule 250 mcg PO DAILY 11/10/18 [History Confirmed 09/01/20 Last Taken 08/31/20 08:00] omeprazole 20 mg capsule,delayed release 20 mg PO DAILY cap 11/10/18 [History Confirmed 09/01/20 Last Taken 08/31/20 08:00] metformin 500 mg PO QDAY 04/20/20 [History Confirmed 09/01/20 Last Taken 08/31/20 19:00] gabapentin 800 mg PO QID 09/01/20 [History Confirmed 09/01/20 Last Taken 08/31/20 08:00] hydrocodone-acetaminophen [[place]] 1 tab PO Q4H PRN MDD 6 09/01/20 [History Confirmed 09/01/20 Last Taken 08/31/20 15:00] azithromycin 500 mg PO QDAY 2 Days #2 tab 09/03/20 [Rx Last Taken Unknown] cefuroxime axetil 500 mg PO Q12 2 Days #4 tab 09/03/20 [Rx Last Taken Unknown] dexamethasone 6 mg PO DAILY 6 Days #9 tab 09/03/20 [Rx Last Taken Unknown] COURSE Hospital Course Hospital course: 45 year old female with a history of reactive airway disease, DM II, hypothyroidism, depression, GERD, recurrent "pneumonia" and obesity admitted for acute hypoxic respiratory failure in the setting of bilateral opacities seen on CT chest. The patient was treated for community acquired pneumonia with Rocephin and Azithromycin. She was also started on Dexamethasone due to concerns for COVID-19 given the atypical appearance on CT scan. COVID PCR was negative however Dexamethasone was continued as the patient continued to im prove. Workup for the bilateral opacities included urine Strep pneumonia antigen-negative, Mycoplasma IGM-positive (also positive on 04/20/20), sputum culture-no growth do date, blood culture-no growth to date. Respiratory panel 1&2 did not detect any other viruses. CTA chest was negative for PE but did show widespread infiltrates in both lungs, more consistent with pneumonia than pulmonary edema. Previous CT scan results have also showed bilateral infiltrates raising the concern the patient may have a underlying noninfectious pulmonary disease to explain her multiple recent hospitalizations which have so far been attributed to community acquired pneumonia. I believe the differential should be expanded to include alternative causes of pneumonitis and interstitial lung disease therefore she will be referred to pulmonology after discharge for further evaluation. Her clinical status during the hospitalization gradually improved to the paint that she no longer required oxygen. Telemetry showed episodes of wide complex tachyarrhythmias but EKGs were unremarkable. These occured while the patient was in motion and likely artifactual. An ECHO was ordered to ensure the patient does not have structural cardiac issue. The patient will discharge to home and complete a course of antibiotics as well as dexamethasone. Last progress note below for reference. #Bilateral pneumonia: atypical bacterial vs viral pneumonia vs pneumonitis (inflammatory vs hypersensitively vs idiopathic) -CT chest with bilateral opacities -RVP/Covid/strep neg, PCT elevated -Mycoplasma IgM positive (was + in April, IgM can persist in adults) -overall improvement with abx and steroids #Acute hypoxic respiratory failure-resolved #Hx of Reactive airway disease: #Diabetes mellitus w/neuropathy: #Chronic pain/osteoarthritis: on chronic narcotics #Depression: #Hypothyroidism: #Obese: #GERD: #Likely artifactual wide complex tachyarrhythmias on telemetry P: -Rocephin/Azithro, pending BC/SC -Mycoplasma confirmatory lab send out -glucocorticoids -IS/Acapella, nebs/RT -wean O2 as able -SSI, metformin -f/u with Pulmonology for multiple admits for respiratory -ECHO -ppx: lovenox/home ppi Follow up -Follow up pulmonology to evaluate for possible noninfectious causes of recurrent hospitalizations for bilateral infiltrates manifesting with acute hypoxic respiratory failure. Discharge diagnosis: Acute hypoxic respiratory failure Time Spent with Patient Time attestation: Total time spent providing and/or coordinating discharge services: 35 EXAM Constitutional Vitals: Temp Pulse Resp BP Pulse Ox 97.5 F 70 20 100/55 91 09/03/20 07:34 09/03/20 07:34 09/03/20 07:34 09/03/20 07:34 09/03/20 07:34 General appearance: cooperative Head Head exam: Present atraumatic and normal inspection Eye Eye exam: Present normal appearance; Absent scleral icterus Neck Neck exam: Present full ROM Respiratory Respiratory exam: Absent accessory muscle use and respiratory distress Cardiovascular Cardiovascular exam: Present normal rate and rhythm GI/Abdominal GI/Abdominal exam: Present soft; Absent distended and tenderness Extremities Exam Extremities exam: Present full ROM Neurological Exam Neurological exam: Present alert, CN II-XII intact and oriented X3 Psychiatric Psychiatric exam: Present normal affect and normal mood Skin Skin exam: Present erythema, normal color and warm Additional comments: Upper chest erythema. 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 Discharge Data Data Completed and Pending Labs on day of discharge: Preliminary micro results at discharge 09/01/20 05:57 Blood Culture - Preliminary Blood 09/01/20 05:35 Blood Culture - Preliminary Blood 09/01/20 21:40 Gram Stain - Preliminary Sputum - Induced Sputum Culture - Preliminary Discharge Plan Patient/Caregiver Discharge Instructions Activity: increase activity as tolerated Diet: Consistent Carbohydrate Prescriptions: New dexamethasone 4 mg Tablet 6 mg PO DAILY 6 Days Qty: 9 RF: 0 cefuroxime axetil 500 mg Tablet 500 mg PO Q12 2 Days Qty: 4 RF: 0 azithromycin 500 mg tablet 500 mg PO QDAY 2 Days Qty: 2 RF: 0 Continued zolpidem [Ambien] 10 mg tablet 10 mg PO HSP PRN (Reason: Sleep) RF: 0 sertraline 50 mg tablet 150 mg PO DAILY RF: 0 epinephrine 0.3 mg/0.3 mL auto-injector 0.3 mg IM ONCE RF: 0 levothyroxine 200 mcg capsule 250 mcg PO DAILY RF: 0 omeprazole 20 mg capsule,delayed release(DR/EC) 20 mg PO DAILY RF: 0 albuterol sulfate 8.5 GM HFA aerosol inhaler 8.5 gm IH Q4HP PRN (Reason: Dyspnea) Qty: 1 RF: 0 metformin 500 mg Tablet 500 mg PO QDAY RF: 0 gabapentin 800 mg Tablet 800 mg PO QID RF: 0 hydrocodone-acetaminophen [[place]] 7.5-325 mg Tablet 1 tab PO Q4H MDD 6 PRN (Reason: Pain, Moderate) RF: 0 Follow Up Plan Follow up with: Janes Kidd ARNP [Primary Care Provider] - Patient Disposition: Home, Self-Care Prognosis: Serious Overall status at discharge: patient is progressing back to baseline Discharge Orders: Discharge Order (Routine); Ordered 09/03/20 Ordered By: Tapan Herr QUALITY VTE Deep Vein Thrombosis/Pulmonary Embolism Present on Admission: No
== END 2020-09-03 15:17 | disposition home or self-care (01) | DRG 193 ==
LOC: ED 17:30 → ICU 22:49 → MEDSUR 09-02 16:59
PROVIDERS: ADMIT Internal Medicine; ATTEND Internal Medicine

== ENCOUNTER 2021-05-01 11:51 | Inpatient (IN) ==
[2021-05-01] MEDS ORDERED: IOPAMIDOL 100 ML BOTTLE IV ONE (11:52)
[2021-05-01] MEDS ORDERED: HEPARIN 5,000 UNIT/ML VIAL IV ONE (12:53)
--- NOTE | 2021-05-01 12:59 | Emergency Department Note ---
SOB HPI General Chief Complaint: Shortness of Breath/Dyspnea Stated Complaint: SOB with exertion Time Seen by Provider: 05/01/21 11:59 Source: patient Mode of arrival: ambulatory Limitations: no limitations History of Present Illness HPI Narrative: Patient is a 46-year-old lady who arrives emergency department by private vehicle accompanied by her daughter complaining of shortness of breath. The patient says she has been feeling short of breath ever since Thursday. This is gradual in onset has been progressively worsening. She has chest tightness that is worsened whenever she takes a deep breath or coughs. She denies any associated fever or chills. She has had similar symptoms in the past when she has had pneumonia. She has not received a COVID-19 vaccine. The patient did recently have shoulder surgery on April 23. She notes that today she was having shortness of breath with minimal exertion so she decided to come to the emergency department for further evaluation. Related Data Home Medications Medication Instructions Recorded Confirmed sertraline 50 mg tablet 150 mg PO DAILY 12/05/15 05/01/21 zolpidem 10 mg tablet 10 mg PO HSP PRN 12/05/15 05/01/21 epinephrine 0.3 mg/0.3 mL 0.3 mg IM ONCE 11/10/18 05/01/21 injection, auto-injector levothyroxine 200 mcg capsule 250 mcg PO DAILY 11/10/18 05/01/21 omeprazole 20 mg capsule,delayed 20 mg PO DAILY cap 11/10/18 05/01/21 release gabapentin 800 mg PO QID 09/01/20 05/01/21 amitriptyline 25 mg tablet 25 mg PO QHS tab 10/22/20 05/01/21 rhubarb root extract 4 mg tablet 4 mg PO .daily tab 10/22/20 05/01/21 rosuvastatin 5 mg tablet 5 mg PO QDAY 10/22/20 05/01/21 albuterol 90 mcg INHALATION BID 03/14/21 05/01/21 tiotropium-olodaterol [Stiolto 2 puff INHALATION QDAY PRN 03/14/21 05/01/21 Respimat] tizanidine 6 mg PO QHS 03/14/21 05/01/21 hydrocodone-acetaminophen 1 tab PO Q4HP PRN 05/01/21 05/01/21 Allergies Allergy/AdvReac Type Severity Reaction Status Date / Time bee venom protein (honey bee) Allergy Severe Anaphylaxis Verified 05/01/21 11:53 levofloxacin [From Levaquin] Allergy Severe Anaphylaxis Verified 05/01/21 11:53 morphine Allergy Severe Anaphylaxis Verified 05/01/21 11:53 cefuroxime Allergy Mild Rash Verified 05/01/21 11:53 doxycycline Allergy Mild Blister Verified 05/01/21 11:53 Quinolones Allergy Mild Hives Verified 05/01/21 11:53 Review of Systems ROS ROS Narrative: Narrative: All systems ED: reviewed and negative except as stated. Constitutional: Denies fever and chills Gastrointestinal: Denies abdominal pain, nausea and vomiting PFSH Narrative Patient History Narrative: Narrative: Medical/Surgical/Family History All Active Problems (Updated 05/01/21 @ 17:54 by Jonas Dye DO) Acute hypoxemic respiratory failure (Acute) Chronic GERD (Acute) Pulmonary infiltrates on CXR (Acute) Restrictive lung disease (Acute) SHELBY treated with BiPAP (Acute) Pneumonia (Acute) Nocturnal hypoxia (Chronic) Esophageal dysmotility (Chronic) Ground glass opacity present on imaging of lung (Chronic) Paralyzed hemidiaphragm (Chronic) Elevated hemidiaphragm (Chronic) Snoring (Chronic) Hypersomnia (Chronic) Pneumonitis (Chronic) Respiratory failure with hypoxia (Acute) Pneumonia due to virus (Acute) Other urinary incontinence (Acute) MARCELINO positive (Chronic) Back pain (Acute) Gait abnormality (Chronic) Impaired ambulation (Chronic) Fatigue (Chronic) Anemia (Chronic 09/24/18) Systolic murmur (Chronic 10/19/18) Asthma (Chronic 09/15/18) Chronic pain syndrome (Chronic 09/15/18) Complex regional pain syndrome (Chronic 09/24/18) Depressive disorder (Chronic 09/15/18) Opioid dependence (Chronic 09/24/18) Diabetes mellitus, type II (Chronic 09/10/12) Multiple joint pain (Acute 09/15/18) Diabetes mellitus type 2, controlled, without complications (Chronic) Osteoarthritis (arthritis due to wear and tear of joints) (Chronic) Arthrofibrosis of knee joint (Chronic) Obesity (Chronic) Frequency of micturition (Chronic) Impaired fasting glucose (Chronic) Depression with anxiety (Chronic) Low back pain (Chronic) Insomnia (Chronic 09/15/18) Esophageal reflux (Chronic 09/15/18) Hypothyroidism (Chronic 09/15/18) Medical History MARCELINO positive Anemia (09/24/18) Asthma (09/15/18) Asthma with exacerbation Back pain Chronic GERD Chronic pain syndrome (09/15/18) Complex regional pain syndrome (09/24/18) Depression with anxiety Depressive disorder (09/15/18) Diabetes mellitus, type II (09/10/12) Elevated hemidiaphragm Right Esophageal dysmotility Esophageal reflux (09/15/18) Fatigue Frequency of micturition Gait abnormality Ground glass opacity present on imaging of lung Hypersomnia Hypothyroidism (09/15/18) Impaired ambulation Impaired fasting glucose Insomnia (09/15/18) Low back pain Multiple joint pain (09/15/18) Nocturnal hypoxia Obesity Opioid dependence (09/24/18) SHELBY treated with BiPAP AHI 101.8 sleep study 01/02/2021 responsive to bilevel therapy at 20/15 Paralyzed hemidiaphragm Right Pneumonia Pneumonitis Pulmonary infiltrates on CXR Restrictive lung disease Multifactorial: Right diaphragm paresis; obesity; possible primary parenchymal pulmonary process. Snoring Systolic murmur (10/19/18) Wheezing Surgical History History of bilateral salpingectomy partial History of section x3 History of cholecystectomy History of meniscectomy of right knee 1999 History of total abdominal hysterectomy and bilateral salpingo-oophorectomy 07/2009 with [place] sling urethropexy History of total right knee replacement (TKR) (11/17/17) Family History Father Heart disease Stroke Family/Other Hodgkins disease Maternal Aunt Diabetes mellitus Maternal Malignant neoplasm of breast Maternal Grandmother Diabetes mellitus Maternal Sister Diabetes mellitus Social History Smoking Status: Former smoker Alcohol Intake Frequency: does not drink Substance Use: does not use Exam Narrative Narrative: I reviewed the vital signs. Gen -patient is awake and alert and in no acute distress. The patient is well groomed. HEENT -head is atraumatic. There is no conjunctival pallor or scleral icterus. Mucous membranes are moist. CV -S1-S2 regular rate and rhythm. Peripheral pulses are palpable. There is no JVD. Resp -breathing is nonlabored at rest. The patient does have mild conversational dyspnea. Lungs are clear to auscultation bilaterally. There is no cyanosis. GI - Abdomen is soft and nontender to palpation. There is no guarding or rebound tenderness. Derm -skin is warm and dry. There is no visible rash. MSK -patient's right upper extremity is in a sling. There is moderate nonpitting edema of the right upper and left lower extremities. Psych -patient has appropriate affect. The patient does not appear internally stimulated. Neuro -patient answers questions appropriately with fluent speech. Patient moves all present extremities equally. General Limitations: no limitations Course Vital Signs Vital signs: Vital Signs Temperature 98.8 F 05/01/21 11:52 Pulse Rate 80 05/01/21 11:52 Respiratory Rate 24 H 05/01/21 11:52 Blood Pressure 94/61 05/01/21 11:52 Pulse Oximetry (%) 82 L 05/01/21 11:52 Temperature 98.8 F 05/01/21 11:52 Pulse Rate 69 05/01/21 17:05 Respiratory Rate 24 H 05/01/21 11:52 Blood Pressure 114/62 05/01/21 16:32 Pulse Oximetry (%) 97 05/01/21 17:05 Procedures Other Procedure: I personally performed interpreted limited bedside transthoracic echocardiogram. Obtain parasternal long and short axis views and archived im ages. The study is slightly technically limited. There is no pericardial effusion. There is normal left ventricular ejection fraction there is no evidence of right ventricular strain. [facility] MDM Narrative Medical decision making narrative: Patient presents with chest discomfort and shortness of breath. My initial concern was for pulmonary embolus. CT scan does not reveal a pulmonary embolus but does reveal groundglass interstitial opacification of her lung ziegler. She does have an elevated BNP but has no history of congestive heart failure and does not have significant risk factors for heart failure. Additionally complicating the picture her ejection fraction appears grossly normal on bedside echocardiogram. The patient remains significantly hypoxemic with oxygen saturations in the low 80s while. Given this I recommended she be admitted for further pulmonary and cardiac evaluation. At the change of shift, potential transfer to [place] was pending. Dr. Harris will follow up on the availability of transfer and disposition the patient accordingly. Lab Data Lab results reviewed: Yes I reviewed the patient's lab results. Result diagrams: 05/01/21 13:04 Labs: Lab Results 05/01/21 05/01/21 05/01/21 Range/Units 13:03 13:04 13:04 WBC 7.1 (4.5-11.0) K/mcL RBC 3.41 L (3.59-5.38) M/mcL Hgb 10.3 L (11.2-15.7) g/dL Hct 31.5 L (34.1-44.9) % POC Hct 32 L (36-48) % MCV 92.4 (80.0-100.0) fL MCH 30.2 (26.0-34.0) pg MCHC 32.7 (31.0-36.0) g/dL RDW 13.5 (11.5-14.5) % Plt Count 205 (140-440) K/mcL MPV 10.5 H (7.4-10.4) fL Neut % (Auto) 58.8 (38.0-78.0) % Lymph % (Auto) 28.2 (15.5-49.0) % [place] % (Auto) 8.1 (1.0-12.0) % Eos % (Auto) 4.3 (0.0-7.0) % Baso % (Auto) 0.6 (0.0-2.0) % Lymph # (Auto) 2.01 (1.50-4.80) K/mcL [place] # (Auto) 0.58 (0.10-0.90) K/mcL Eos # (Auto) 0.31 (0.00-0.70) K/mcL Baso # (Auto) 0.04 (0.00-0.30) K/mcL Absolute Neutrophils 4.19 (1.80-8.00) K/mcL POC Sodium 139 (133-145) mEq/L POC Potassium 3.2 L (3.3-5.1) mEql/L POC Chloride 101 (96-108) mEq/L POC Total CO2 25 (22-30) mmol/L POC BUN 16 (6-20) mg/dL POC Creatinine 0.6 (0.6-1.2) mg/dL POC Glucose 130 H (70-105) mg/dL POC WB Ioniz Calcium 1.18 (1.16-1.32) mmEq/L Troponin T 0.01 (<0.03) ng/mL NT-Pro-B Natriuret Pep 2882.0 H (<125.0) pg/mL ED POC Tests ED POC Tests: CHERELLE - SARS Antigen Negative HCG POC Results Negative EKG Data EKG #1: EKG attestation: Yes I reviewed and interpreted this EKG. EKG results narrative: EKG performed at 12:28 PM: Sinus rhythm, rate 70. There is significant baseline artifact especially in the inferior leads. No ST segment deviation. Normal T wave morphology. There are Q waves present in V3 through V6. Normal QRS and QTc duration. No old EKG immediately available for comparison. EKG was interpreted by me. Discharge Plan Patient/Caregiver Discharge Instructions Pt seen by DEVELOPMENT INTERN/PA only: No Clinical Impression: Acute hypoxemic respiratory failure Patient Disposition: Still a Patient Follow up with: Janes Kidd ARNP [Primary Care Provider] - Prescriptions: No Action zolpidem [Ambien] 10 mg tablet 10 mg PO HSP PRN (Reason: Sleep) RF: 0 sertraline 50 mg tablet 150 mg PO DAILY RF: 0 epinephrine 0.3 mg/0.3 mL auto-injector 0.3 mg IM ONCE RF: 0 levothyroxine 200 mcg capsule 250 mcg PO DAILY RF: 0 omeprazole 20 mg capsule,delayed release(DR/EC) 20 mg PO DAILY RF: 0 rosuvastatin 5 mg tablet 5 mg PO QDAY RF: 0 Estroven Cmplt Menopause Rlf 4 mg tablet 4 mg PO .daily RF: 0 amitriptyline 25 mg tablet 25 mg PO QHS RF: 0 gabapentin 800 mg Tablet 800 mg PO QID RF: 0 albuterol 90 mcg/actuation Aerosol 90 mcg INHALATION BID RF: 0 tizanidine 2 mg Capsule 6 mg PO QHS RF: 0 Stiolto Respimat 2.5-2.5 mcg/actuation Mist 2 puff INHALATION QDAY PRN (Reason: Shortness Of Breath) RF: 0 hydrocodone-acetaminophen 10-325 mg tablet 1 tab PO Q4HP PRN (Reason: Pain) RF: 0
[2021-05-01] MEDS ORDERED: HEPARIN SOD,PORK IN 0.45% NACL 25,000 UNIT/500 ML BAG IV SCH (13:00)
[2021-05-01 13:10] LABS: POC Blood Urea Nitrogen 16 mg/dL (6-20); POC CO2 25 mmol/L (22-30); POC Calcium, Ionized 1.18 mmEq/L (1.16-1.32); POC Chloride 101 mEq/L (96-108); POC Creatinine 0.6 mg/dL (0.6-1.2); POC Glucose, Random 130 mg/dL (70-105); POC Hematocrit 32 % (36-48); POC Potassium 3.2 mEql/L (3.3-5.1); POC Sodium 139 mEq/L (133-145)
[2021-05-01 13:57] LABS: Basophils # (Auto) 0.04 K/mcL (0.00-0.30); Basophils % (Auto) 0.6 % (0.0-2.0); Eosinophils # (Auto) 0.31 K/mcL (0.00-0.70); Eosinophils % (Auto) 4.3 % (0.0-7.0); Hematocrit 31.5 % (34.1-44.9); Hemoglobin 10.3 g/dL (11.2-15.7); Lymphocytes # (Auto) 2.01 K/mcL (1.50-4.80); Lymphocytes % (Auto) 28.2 % (15.5-49.0); Mean Cell Volume 92.4 fL (80.0-100.0); Mean Corpuscular HGB Conc 32.7 g/dL (31.0-36.0); Mean Platelet Volume 10.5 fL (7.4-10.4); Monocytes # (Auto) 0.58 K/mcL (0.10-0.90); Monocytes % (Auto) 8.1 % (1.0-12.0); Neutrophils % (Auto) 58.8 % (38.0-78.0); Platelet Count 205 K/mcL (140-440); RBC 3.41 M/mcL (3.59-5.38); Red Cell Distribution Width 13.5 % (11.5-14.5); WBC 7.1 K/mcL (4.5-11.0)
--- NOTE | 2021-05-01 14:25 | Cat Scan Report ---
CLINICAL INFORMATION: Dyspnea COMPARISON: 04/20/2020 and 12/06/2020 TECHNIQUE: 80ml of Isovue-370 were injected intravenously. Using SmartPrep to maximize pulmonary artery opacification, .625mm helical slices were obtained from the lung apices through the lung bases. Following reconstruction, 2.5 mm sagittal, coronal, and axial reformations were processed. The exam was reviewed at mediastinal, lung, and bone windows. The exam was performed using radiation dose optimization techniques including, but not limited to, automated exposure control, adjustment of the mA and/or kV according to patient size and use of iterative reconstruction technique. FINDINGS: Pulmonary parenchymal windows show minimal peribronchovascular groundglass infiltrates in the central regions of both upper, lower and right middle lobe. On the previous exam, in the right lung, these were much larger and denser. A 6 mm nodule in the posterior right lower lobe on image 58 is unchanged from the 12/06/2020 exam. Two new groundglass nodule have developed in the left apex 18 mm on image 23 and 10 mm on image 18. Given the rapid development, these are almost certainly inflammatory. Pleural spaces are normal.. Mediastinal windows show the heart is grossly normal in size and configuration. The pulmonary arteries are normal diameter and well-opacified without evidence of embolus. Thoracic aorta is also normal diameter and well-opacified. 2.6 cm lymph node compared to the left pulmonary artery and mildly enlarged bilateral hilar lymph nodes ranging up to 18 mm are unchanged from the most recent exam. These likely represent benign reactive adenopathy. Esophagus is grossly normal. Bones and soft tissues the chest wall are normal. Images through the superior abdomen are unremarkable. IMPRESSION: 1. No evidence of pulmonary embolus. 2. Mild peribronchovascular airspace disease in both upper, right middle and lower lobes. On the right side, infiltrates have improved considerably since the comparison CT five months prior. Consider in infection or other inflammatory cause. Two groundglass new nodules in the left apex are almost certainly inflammatory. 3. Mildly enlarged hilar lymph nodes and a lymph node in the left suprahilar region are unchanged and almost certainly benign benign reactive adenopathy. Interpreted and Authenticated by: [employer] 05/01/21
[2021-05-01] MEDS ORDERED: AMOXICILLIN/POTASSIUM CLAV 875 MG TABLET PO ONE (14:59)
[2021-05-01] MEDS ORDERED: HYDROcodone/APAP 10/325MG TABLET PO ONE ×2 (15:13→17:51)
[2021-05-01] MEDS ORDERED: HYDROcodone/APAP 5/325MG TABLET PO ONE ×2 (15:20→18:25)
[2021-05-01] MEDS ORDERED: FUROSEMIDE 20 MG/2 ML VIAL IV ONE ×2 (17:51→20:24)
[2021-05-01] MEDS ORDERED: ONDANSETRON 4 MG/2 ML VIAL IV PRN ×2 (20:06→21:12)
--- NOTE | 2021-05-01 20:11 | Emergency Department Note ---
HPI General Chief complaint: Shortness of Breath/Dyspnea Stated complaint: SOB with exertion Time Seen by Provider: 05/01/21 11:59 Source: patient Mode of arrival: ambulatory Limitations: no limitations History of Present Illness HPI Narrative: Narrative: Patient was signed out to me by Dr. Dye, and I agree with the work-up and plan thus far. Is my understand the patient came in with chief complaint of shortness of breath, and work-up revealed no evidence of PE but did show signs concerning for possible new onset CHF. Bedside echo performed by the day physician showed no significant EF abnormalities, which would suggest a diastolic dysfunction. Patient initially was hypoxic in the mid 80s, but after 4 L nasal cannula she has been doing well in the mid 90s and feeling better overall. She is also been given Lasix and diuresing. At signout, the patient was being plan to transfer to [place], however my colleague had not yet had a chance to talk with the hospitalist there. I discussed case with the [place] hospitalist, who stated that she did not think the patient needed to be transferred at this time. She recommended that the patient be admitted to our facility, diuresed and monitor the electrolytes, and do a cardiology work-up outpatient for her current presentation. Because of this I did discuss the case with Dr. Jeter, who agreed to admit the patient here for further work-up and management. Patient has been stable throughout my time with her. Related Data Home Medications Medication Instructions Recorded Confirmed sertraline 50 mg tablet 150 mg PO DAILY 12/05/15 05/01/21 zolpidem 10 mg tablet 10 mg PO HSP PRN 12/05/15 05/01/21 epinephrine 0.3 mg/0.3 mL 0.3 mg IM ONCE 11/10/18 05/01/21 injection, auto-injector levothyroxine 200 mcg capsule 250 mcg PO DAILY 11/10/18 05/01/21 omeprazole 20 mg capsule,delayed 20 mg PO DAILY cap 11/10/18 05/01/21 release gabapentin 800 mg PO QID 09/01/20 05/01/21 amitriptyline 25 mg tablet 25 mg PO QHS tab 10/22/20 05/01/21 rhubarb root extract 4 mg tablet 4 mg PO .daily tab 10/22/20 05/01/21 rosuvastatin 5 mg tablet 5 mg PO QDAY 10/22/20 05/01/21 albuterol 90 mcg INHALATION BID 03/14/21 05/01/21 tiotropium-olodaterol [Stiolto 2 puff INHALATION QDAY PRN 03/14/21 05/01/21 Respimat] tizanidine 6 mg PO QHS 03/14/21 05/01/21 hydrocodone-acetaminophen 1 tab PO Q4HP PRN 05/01/21 05/01/21 Allergies Allergy/AdvReac Type Severity Reaction Status Date / Time bee venom protein (honey bee) Allergy Severe Anaphylaxis Verified 05/01/21 11:53 levofloxacin [From Levaquin] Allergy Severe Anaphylaxis Verified 05/01/21 11:53 morphine Allergy Severe Anaphylaxis Verified 05/01/21 11:53 cefuroxime Allergy Mild Rash Verified 05/01/21 11:53 doxycycline Allergy Mild Blister Verified 05/01/21 11:53 Quinolones Allergy Mild Hives Verified 05/01/21 11:53 Review of Systems ROS ROS Narrative: Narrative: [facility] Narrative Patient History Narrative: Narrative: Medical/Surgical/Family History All Active Problems (Updated 05/01/21 @ 20:11 by Manjit Harris DO) Acute hypoxemic respiratory failure (Acute) CHF (congestive heart failure) (Acute) Chronic GERD (Acute) Pulmonary infiltrates on CXR (Acute) Restrictive lung disease (Acute) SHELBY treated with BiPAP (Acute) Pneumonia (Acute) Nocturnal hypoxia (Chronic) Esophageal dysmotility (Chronic) Ground glass opacity present on imaging of lung (Chronic) Paralyzed hemidiaphragm (Chronic) Elevated hemidiaphragm (Chronic) Snoring (Chronic) Hypersomnia (Chronic) Pneumonitis (Chronic) Respiratory failure with hypoxia (Acute) Pneumonia due to virus (Acute) Other urinary incontinence (Acute) MARCELINO positive (Chronic) Back pain (Acute) Gait abnormality (Chronic) Impaired ambulation (Chronic) Fatigue (Chronic) Anemia (Chronic 09/24/18) Systolic murmur (Chronic 10/19/18) Asthma (Chronic 09/15/18) Chronic pain syndrome (Chronic 09/15/18) Complex regional pain syndrome (Chronic 09/24/18) Depressive disorder (Chronic 09/15/18) Opioid dependence (Chronic 09/24/18) Diabetes mellitus, type II (Chronic 09/10/12) Multiple joint pain (Acute 09/15/18) Diabetes mellitus type 2, controlled, without complications (Chronic) Osteoarthritis (arthritis due to wear and tear of joints) (Chronic) Arthrofibrosis of knee joint (Chronic) Obesity (Chronic) Frequency of micturition (Chronic) Impaired fasting glucose (Chronic) Depression with anxiety (Chronic) Low back pain (Chronic) Insomnia (Chronic 09/15/18) Esophageal reflux (Chronic 09/15/18) Hypothyroidism (Chronic 09/15/18) Medical History MARCELINO positive Anemia (09/24/18) Asthma (09/15/18) Asthma with exacerbation Back pain Chronic GERD Chronic pain syndrome (09/15/18) Complex regional pain syndrome (09/24/18) Depression with anxiety Depressive disorder (09/15/18) Diabetes mellitus, type II (09/10/12) Elevated hemidiaphragm Right Esophageal dysmotility Esophageal reflux (09/15/18) Fatigue Frequency of micturition Gait abnormality Ground glass opacity present on imaging of lung Hypersomnia Hypothyroidism (09/15/18) Impaired ambulation Impaired fasting glucose Insomnia (09/15/18) Low back pain Multiple joint pain (09/15/18) Nocturnal hypoxia Obesity Opioid dependence (09/24/18) SHELBY treated with BiPAP AHI 101.8 sleep study 01/02/2021 responsive to bilevel therapy at 20/15 Paralyzed hemidiaphragm Right Pneumonia Pneumonitis Pulmonary infiltrates on CXR Restrictive lung disease Multifactorial: Right diaphragm paresis; obesity; possible primary parenchymal pulmonary process. Snoring Systolic murmur (10/19/18) Wheezing Surgical History History of bilateral salpingectomy partial History of section x3 History of cholecystectomy History of meniscectomy of right knee 1999 History of total abdominal hysterectomy and bilateral salpingo-oophorectomy 07/2009 with [place] sling urethropexy History of total right knee replacement (TKR) (11/17/17) Family History Father Heart disease Stroke Family/Other Hodgkins disease Maternal Aunt Diabetes mellitus Maternal Malignant neoplasm of breast Maternal Grandmother Diabetes mellitus Maternal Sister Diabetes mellitus Social History Smoking Status: Former smoker Alcohol Intake Frequency: does not drink Substance Use: does not use Exam Narrative Narrative: Narrative: General Limitations: no limitations Course Vital Signs Vital signs: Vital Signs Temperature 98.8 F 05/01/21 11:52 Pulse Rate 80 05/01/21 11:52 Respiratory Rate 24 H 05/01/21 11:52 Blood Pressure 94/61 05/01/21 11:52 Pulse Oximetry (%) 82 L 05/01/21 11:52 Temperature 98.8 F 05/01/21 11:52 Pulse Rate 68 05/01/21 19:33 Respiratory Rate 18 05/01/21 19:33 Blood Pressure 109/77 05/01/21 19:33 Pulse Oximetry (%) 92 05/01/21 19:33 MDM MDM Narrative Medical decision making narrative: Narrative: Lab Data Result diagrams: 05/01/21 13:04 Labs: Lab Results 05/01/21 05/01/21 05/01/21 Range/Units 13:03 13:04 13:04 WBC 7.1 (4.5-11.0) K/mcL RBC 3.41 L (3.59-5.38) M/mcL Hgb 10.3 L (11.2-15.7) g/dL Hct 31.5 L (34.1-44.9) % POC Hct 32 L (36-48) % MCV 92.4 (80.0-100.0) fL MCH 30.2 (26.0-34.0) pg MCHC 32.7 (31.0-36.0) g/dL RDW 13.5 (11.5-14.5) % Plt Count 205 (140-440) K/mcL MPV 10.5 H (7.4-10.4) fL Neut % (Auto) 58.8 (38.0-78.0) % Lymph % (Auto) 28.2 (15.5-49.0) % [place] % (Auto) 8.1 (1.0-12.0) % Eos % (Auto) 4.3 (0.0-7.0) % Baso % (Auto) 0.6 (0.0-2.0) % Lymph # (Auto) 2.01 (1.50-4.80) K/mcL [place] # (Auto) 0.58 (0.10-0.90) K/mcL Eos # (Auto) 0.31 (0.00-0.70) K/mcL Baso # (Auto) 0.04 (0.00-0.30) K/mcL Absolute Neutrophils 4.19 (1.80-8.00) K/mcL POC Sodium 139 (133-145) mEq/L POC Potassium 3.2 L (3.3-5.1) mEql/L POC Chloride 101 (96-108) mEq/L POC Total CO2 25 (22-30) mmol/L POC BUN 16 (6-20) mg/dL POC Creatinine 0.6 (0.6-1.2) mg/dL POC Glucose 130 H (70-105) mg/dL POC WB Ioniz Calcium 1.18 (1.16-1.32) mmEq/L Troponin T 0.01 (<0.03) ng/mL NT-Pro-B Natriuret Pep 2882.0 H (<125.0) pg/mL ED POC Tests ED POC Tests: CHERELLE - SARS Antigen Negative HCG POC Results Negative Discharge Plan Patient/Caregiver Discharge Instructions Pt seen by CARE NAVIGATOR/PA only: No Clinical Impression: Acute hypoxemic respiratory failure, CHF (congestive heart failure) Patient Disposition: Xfer As Inpt ([facility]) Follow up with: Janes Kidd ARNP [Primary Care Provider] - Prescriptions: No Action zolpidem [Ambien] 10 mg tablet 10 mg PO HSP PRN (Reason: Sleep) RF: 0 sertraline 50 mg tablet 150 mg PO DAILY RF: 0 epinephrine 0.3 mg/0.3 mL auto-injector 0.3 mg IM ONCE RF: 0 levothyroxine 200 mcg capsule 250 mcg PO DAILY RF: 0 omeprazole 20 mg capsule,delayed release(DR/EC) 20 mg PO DAILY RF: 0 rosuvastatin 5 mg tablet 5 mg PO QDAY RF: 0 Estroven Cmplt Menopause Rlf 4 mg tablet 4 mg PO .daily RF: 0 amitriptyline 25 mg tablet 25 mg PO QHS RF: 0 gabapentin 800 mg Tablet 800 mg PO QID RF: 0 albuterol 90 mcg/actuation Aerosol 90 mcg INHALATION BID RF: 0 tizanidine 2 mg Capsule 6 mg PO QHS RF: 0 Stiolto Respimat 2.5-2.5 mcg/actuation Mist 2 puff INHALATION QDAY PRN (Reason: Shortness Of Breath) RF: 0 hydrocodone-acetaminophen 10-325 mg tablet 1 tab PO Q4HP PRN (Reason: Pain) RF: 0
--- NOTE | 2021-05-01 20:23 | Internal Med History&Physical ---
HPI History of Present Illness Patient information: Note initiated : 05/01/21 at 8:17 pm Service Date, if different from initiated Date: [] Patient: Felisha Murphy a 46 y/o F admitted on for SOB with exertion. Chief Complaint: [] History of present illness: Ms. Murphy is a 46 year old F Presents the ED with shortness of breath. She says she is had increasing shortness of breath since Thursday. Few days prior to that she did have a shoulder arthroscopy. Since the surgery says she has had swelling in her arms and legs. She denies cough. Denies fever chills. She had a echo done this year which was unremarkable. She was admitted earlier in the year for a viral versus atypical bacterial pneumonia She has not had the Covid vaccine. The rapid was negative in the ED CTA showed no PE but did show bilateral infiltrates. She denies orthopnea, she has been sleeping in a recliner just because of the shoulder pain. She denies chest pain. Review of Systems: Pertinent positives as above. Denies headache/fever/chills/nausea/vomiting/chest or abdominal pain/diarrhea. Remaining 10 point review of system reviewed negative PFSH PFSH All Active Problems (Updated 05/01/21 @ 20:11 by Manjit Harris DO) Acute hypoxemic respiratory failure (Acute) CHF (congestive heart failure) (Acute) Chronic GERD (Acute) Pulmonary infiltrates on CXR (Acute) Restrictive lung disease (Acute) SHELBY treated with BiPAP (Acute) Pneumonia (Acute) Nocturnal hypoxia (Chronic) Esophageal dysmotility (Chronic) Ground glass opacity present on imaging of lung (Chronic) Paralyzed hemidiaphragm (Chronic) Elevated hemidiaphragm (Chronic) Snoring (Chronic) Hypersomnia (Chronic) Pneumonitis (Chronic) Respiratory failure with hypoxia (Acute) Pneumonia due to virus (Acute) Other urinary incontinence (Acute) MARCELINO positive (Chronic) Back pain (Acute) Gait abnormality (Chronic) Impaired ambulation (Chronic) Fatigue (Chronic) Anemia (Chronic 09/24/18) Systolic murmur (Chronic 10/19/18) Asthma (Chronic 09/15/18) Chronic pain syndrome (Chronic 09/15/18) Complex regional pain syndrome (Chronic 09/24/18) Depressive disorder (Chronic 09/15/18) Opioid dependence (Chronic 09/24/18) Diabetes mellitus, type II (Chronic 09/10/12) Multiple joint pain (Acute 09/15/18) Diabetes mellitus type 2, controlled, without complications (Chronic) Osteoarthritis (arthritis due to wear and tear of joints) (Chronic) Arthrofibrosis of knee joint (Chronic) Obesity (Chronic) Frequency of micturition (Chronic) Impaired fasting glucose (Chronic) Depression with anxiety (Chronic) Low back pain (Chronic) Insomnia (Chronic 09/15/18) Esophageal reflux (Chronic 09/15/18) Hypothyroidism (Chronic 09/15/18) Medical History MARCELINO positive Anemia (09/24/18) Asthma (09/15/18) Asthma with exacerbation Back pain Chronic GERD Chronic pain syndrome (09/15/18) Complex regional pain syndrome (09/24/18) Depression with anxiety Depressive disorder (09/15/18) Diabetes mellitus, type II (09/10/12) Elevated hemidiaphragm Right Esophageal dysmotility Esophageal reflux (09/15/18) Fatigue Frequency of micturition Gait abnormality Ground glass opacity present on imaging of lung Hypersomnia Hypothyroidism (09/15/18) Impaired ambulation Impaired fasting glucose Insomnia (09/15/18) Low back pain Multiple joint pain (09/15/18) Nocturnal hypoxia Obesity Opioid dependence (09/24/18) SHELBY treated with BiPAP AHI 101.8 sleep study 01/02/2021 responsive to bilevel therapy at 20/15 Paralyzed hemidiaphragm Right Pneumonia Pneumonitis Pulmonary infiltrates on CXR Restrictive lung disease Multifactorial: Right diaphragm paresis; obesity; possible primary parenchymal pulmonary process. Snoring Systolic murmur (10/19/18) Wheezing Surgical History History of bilateral salpingectomy partial History of section x3 History of cholecystectomy History of meniscectomy of right knee 1999 History of total abdominal hysterectomy and bilateral salpingo-oophorectomy 07/2009 with [place] sling urethropexy History of total right knee replacement (TKR) (11/17/17) Family History Father Heart disease Stroke Family/Other Hodgkins disease Maternal Aunt Diabetes mellitus Maternal Malignant neoplasm of breast Maternal Grandmother Diabetes mellitus Maternal Sister Diabetes mellitus Social History education level: high school physical activity: none smoking status: Former smoker quit date: 08/10/15 pack-years: 30 alcohol intake frequency: does not drink substance use type: does not use seatbelt use: always working smoke detector in home: Yes firearms in home: No MEDS/ALLERGIES Home Medications and Allergies Home Medications Medication Instructions Recorded Confirmed Type sertraline 50 mg tablet 150 mg PO DAILY 12/05/15 05/01/21 History zolpidem 10 mg tablet 10 mg PO HSP PRN 12/05/15 05/01/21 History epinephrine 0.3 mg/0.3 mL 0.3 mg IM ONCE 11/10/18 05/01/21 History injection, auto-injector levothyroxine 200 mcg capsule 250 mcg PO DAILY 11/10/18 05/01/21 History omeprazole 20 mg capsule,delayed 20 mg PO DAILY cap 11/10/18 05/01/21 History release gabapentin 800 mg PO QID 09/01/20 05/01/21 History amitriptyline 25 mg tablet 25 mg PO QHS tab 10/22/20 05/01/21 History rhubarb root extract 4 mg tablet 4 mg PO .daily tab 10/22/20 05/01/21 History rosuvastatin 5 mg tablet 5 mg PO QDAY 10/22/20 05/01/21 History albuterol 90 mcg INHALATION BID 03/14/21 05/01/21 History tiotropium-olodaterol [Stiolto 2 puff INHALATION QDAY PRN 03/14/21 05/01/21 History Respimat] tizanidine 6 mg PO QHS 03/14/21 05/01/21 History hydrocodone-acetaminophen 1 tab PO Q4HP PRN 05/01/21 05/01/21 History Allergies Allergy/AdvReac Type Severity Reaction Status Date / Time bee venom protein (honey bee) Allergy Severe Anaphylaxis Verified 05/01/21 11:53 levofloxacin [From Levaquin] Allergy Severe Anaphylaxis Verified 05/01/21 11:53 morphine Allergy Severe Anaphylaxis Verified 05/01/21 11:53 cefuroxime Allergy Mild Rash Verified 05/01/21 11:53 doxycycline Allergy Mild Blister Verified 05/01/21 11:53 Quinolones Allergy Mild Hives Verified 05/01/21 11:53 EXAM Constitutional Vitals: Temp Pulse Resp BP Pulse Ox 98.8 F 66 15 107/68 96 05/01/21 11:52 05/01/21 20:01 05/01/21 20:01 05/01/21 20:01 05/01/21 20:01 Exam: General: Alert, Awake, No acute Distress, obese Eyes/N/T: EOMI, PERRL, Head/Neck: neck supple, normocephalic atraumatic CV: RRR, 1/6 SM, normal s1/s2 Pulm: Diminished b/l, no wheezing/rhonchi/rales Abd: soft, nontender, +BS x4 Ext: no clubbing/cyanosis/edema Neuro: Alert, no focal deficits, moves all extremities, CN 2-12 grossly intact, symmetrical strength b/l upper/lower, sensations intact b/l upper/lower Skin: warm/dry DATA Data Completed and Pending Labs: Labs from last 24 hours 05/01/21 05/01/21 05/01/21 13:04 13:04 13:03 WBC 7.1 RBC 3.41 L Hgb 10.3 L Hct 31.5 L POC Hct 32 L MCV 92.4 MCH 30.2 MCHC 32.7 RDW 13.5 Plt Count 205 MPV 10.5 H Neut % (Auto) 58.8 Lymph % (Auto) 28.2 [place] % (Auto) 8.1 Eos % (Auto) 4.3 Baso % (Auto) 0.6 Lymph # (Auto) 2.01 [place] # (Auto) 0.58 Eos # (Auto) 0.31 Baso # (Auto) 0.04 Absolute Neutrophils 4.19 POC Sodium 139 POC Potassium 3.2 L POC Chloride 101 POC Total CO2 25 POC BUN 16 POC Creatinine 0.6 POC Glucose 130 H POC WB Ioniz Calcium 1.18 Troponin T 0.01 NT-Pro-B Natriuret Pep 2882.0 H A/P Narrative A/P Narrative: A: *Acute hypoxic respiratory failure: suspect more likely PNA instead of CHF -on 4L NC *PNA (h/o recurrent PNA's): atypical bacterial vs viral -CT chest with bilateral opacities - *Reactive airway disease: *Diabetes w/neuropathy: *Chronic pain/osteoarthritis: On narcotics *Depression: *Hypothyroidism: *Obese: *GERD: * P: -Rocephin/Azithro, pending BC/SC -dexa -Mycoplasma/strep, RVP/Covid -IS/Acapella, nebs/RT -wean O2 as able -SSI, metformin -f/u with Pulmonology for multiple admits for respiratory -ppx: lovenox/home ppi full code Time Spent With Patient Time: Total time spent is greater than 50% in coordination of care (as documented) at patient's floor/unit and/or counseling patient:
[2021-05-01] MEDS ORDERED: POTASSIUM CHLORIDE 20 MEQ TABLET PO PRN ×2 (21:12)
[2021-05-01] MEDS ORDERED: METOCLOPRAMIDE 10 MG/2 ML VIAL IV PRN (21:12)
[2021-05-01] MEDS ORDERED: ACETAMINOPHEN 325 MG TABLET PO PRN (21:12)
[2021-05-01] MEDS ORDERED: POTASSIUM CHLORIDE 40 MEQ in DEXTROSE 5% IN WATER 500 ML IV PRN (21:12)
[2021-05-01] MEDS ORDERED: IPRATROPIUM/ALBUTEROL 3 ML AMPUL.NEB NEB PRN (21:12)
[2021-05-01] MEDS ORDERED: SENNOSIDES 1 TABLET PO PRN (21:12)
[2021-05-01] MEDS ORDERED: MAGNESIUM SULFATE 2 GM/50 ML BAG IV PRN (21:12)
[2021-05-01] MEDS ORDERED: POLYETHYLENE GLYCOL 3350 17 GM PACKET PO PRN (21:12)
[2021-05-01] MEDS ORDERED: TIOTROPIUM OLODATEROL INH PRN (21:22)
[2021-05-01 21:30] LABS: ALT/SGPT 110 U/L (<40); AST/SGOT 130 U/L (<32); Albumin 3.9 gm/dL (3.2-5.2); Albumin/Globulin Ratio 1.5 (1.0-2.3); Alkaline Phosphatase 99 U/L (39-117); Bilirubin,Direct 0.2 mg/dL (<0.3); Bilirubin,Total 0.6 mg/dL (0.1-1.0); Blood Urea Nitrogen 15 mg/dL (6-20); Calcium 8.9 mg/dL (8.6-10.4); Carbon Dioxide 19 mmol/L (22-30); Chloride 98 mmol/L (96-108); Globulin 2.6 gm/dL (2.2-3.7); Glomerular Filtration Rate 104; Glucose 126 mg/dL (70-105); Lactate Dehydrogenase 414 U/L (135-225); Phosphorous 3.1 mg/dL (2.5-4.5); Triglycerides 116 mg/dL (<150); Uric Acid 7.6 mg/dL (2.5-8.0)
[2021-05-01] MEDS ORDERED: DEXAMETHASONE 4 MG TABLET PO ONE (21:30)
[2021-05-01] MEDS ORDERED: 0.9 % SODIUM CHLORIDE 10 ML SYRINGE IV SCH (22:00)
[2021-05-01] MEDS: AZITHROMYCIN 500 MG in DEXTROSE 5% IN WATER 250 ML IV SCH (22:01)
[2021-05-01] MEDS: 0.9 % SODIUM CHLORIDE 10 ML SYRINGE IV SCH (22:04)
[2021-05-01] MEDS: ENOXAPARIN 40 MG/0.4 ML SYRINGE SQ SCH (22:11)
[2021-05-01] MEDS: AMITRIPTYLINE 25 MG TABLET PO SCH (22:11)
[2021-05-01] MEDS: HYDROcodone/APAP 10/325MG TABLET PO PRN (22:12)
[2021-05-01] MEDS: DOCUSATE SODIUM 100 MG CAPSULE PO SCH (22:12)
[2021-05-01] MEDS: GABAPENTIN 400 MG CAPSULE PO SCH (22:13)
[2021-05-01] MEDS: tiZANidine 4 MG TABLET PO SCH (22:13)
[2021-05-01] MEDS ORDERED: cefTRIAXone 2 GM VIAL ONE (23:23)
[2021-05-01] MEDS: cefTRIAXone 2 GM in DEXTROSE 5% IN WATER 50 ML IV SCH (23:25)
[2021-05-01] MEDS: ZOLPIDEM 5 MG TABLET PO PRN (23:25)
[2021-05-02] MEDS: 0.9 % SODIUM CHLORIDE 10 ML SYRINGE IV SCH ×3 (04:39→20:48)
[2021-05-02] MEDS: HYDROcodone/APAP 10/325MG TABLET PO PRN ×3 (06:45→19:41)
[2021-05-02 06:50] LABS: Hemoglobin 10.4 g/dL (11.2-15.7); Mean Cell Volume 94.4 fL (80.0-100.0); Mean Corpuscular HGB Conc 32.5 g/dL (31.0-36.0); Mean Platelet Volume 10.3 fL (7.4-10.4); Platelet Count 211 K/mcL (140-440); RBC 3.39 M/mcL (3.59-5.38); Red Cell Distribution Width 13.7 % (11.5-14.5); WBC 4.8 K/mcL (4.5-11.0)
[2021-05-02 07:17] LABS: ALT/SGPT 92 U/L (<40); AST/SGOT 65 U/L (<32); Albumin 3.8 gm/dL (3.2-5.2); Albumin/Globulin Ratio 1.5 (1.0-2.3); Alkaline Phosphatase 96 U/L (39-117); Bilirubin,Direct < 0.2 mg/dL (0-0.3); Bilirubin,Total 0.3 mg/dL (0.1-1.0); Blood Urea Nitrogen 12 mg/dL (6-20); Calcium 8.8 mg/dL (8.6-10.4); Carbon Dioxide 25 mmol/L (22-30); Chloride 100 mmol/L (96-108); Globulin 2.6 gm/dL (2.2-3.7); Glomerular Filtration Rate 110; Glucose 133 mg/dL (70-105); Lactate Dehydrogenase 317 U/L (135-225); Triglycerides 122 mg/dL (<150); Uric Acid 7.5 mg/dL (2.5-8.0)
[2021-05-02] MEDS ORDERED: FUROSEMIDE 40 MG/4 ML VIAL IV ONE (07:17)
--- NOTE | 2021-05-02 07:18 | Internal Med Progress Note ---
SUBJECTIVE Subjective Patient information: Note initiated : 05/02/21 at 7:10 am Service Date, if different from initiated Date: [] Patient: Felisha Murphy a 46 y/o F admitted on 05/01/21 for SOB with exertion. Chief Complaint: [] Interval history: History of present illness: Ms. Murphy is a 46 year old F Presents the ED with shortness of breath. She says she is had increasing shortness of breath since Thursday. Few days prior to that she did have a shoulder arthroscopy. Since the surgery says she has had swelling in her arms and legs. She denies cough. Denies fever chills. She had a echo done this year which was unremarkable. She was admitted earlier in the year for a viral versus atypical bacterial pneumonia She has not had the Covid vaccine. The rapid was negative in the ED CTA showed no PE but did show bilateral infiltrates. She denies orthopnea, she has been sleeping in a recliner just because of the shoulder pain. She denies chest pain. 05/02 Patient states she feels a little bit better today. Denies cough. Covid meenakshi test negative. On 3 L nasal cannula sats of 95%. Review of Systems: denies headache/fever/chills/nausea/vomiting/chest or abdominal pain/coughdiarrhea. Otherwise see above. Constitutional Vitals: Vital Signs Temp Pulse Resp BP Pulse Ox 97.6 F 46 L 24 H 95/58 94 05/02/21 04:33 05/02/21 04:33 05/02/21 04:33 05/02/21 04:33 05/02/21 04:33 Period Temp Pulse Resp BP Sys/Pitts Pulse Ox Last 24 Hr 97.3 F-98.8 F 46-80 15-24 80-119/48-82 82-100 Intake and Output 05/01/21 05/02/21 05/02/21 21:59 05:59 13:59 Intake Total 50 500 Output Total 150 Balance 50 350 Weight 135.171 kg Intake & Output: Intake & Output 05/01/21 05/02/21 05/02/21 21:59 05:59 13:59 Intake Total 50 500 Output Total 150 Balance 50 350 Weight 135.171 kg Intake: IV 50 300 Zithromax 500 mg In Dextrose 5% 250 in Water 250 ml @ 250 mls/hr IV Q24H [facility] Rx#:[id number] HEPARIN/0.45%NS 25,000 unit In 50 500 ml @ 14 UNIT/KG/HR 37.594 mls/hr IV .[id number] [facility] Rx#: [id number] Rocephin 2 gm In Dextrose 5% in 50 Water 50 ml @ 100 mls/hr IV Q24H [facility] Rx#:[id number] Oral 200 Output: Void Amount 150 Other: Urine Appearance Clear Clear Urine Color Bright Yellow Pale Urine Odor Normal Exam: General: Alert, Awake, No acute Distress, obese Eyes/N/T: EOMI,, Head/Neck: neck supple, CV: RRR, 1/6 SM, Pulm: Diminished b/l, no wheezing/rhonchi/rales Abd: soft, nontender, +BS x4 Ext: no clubbing/cyanosis, b/l 1-2+ LE edema Neuro: Alert, no focal deficits, moves all extremities, Skin: warm/dry OBJ DATA Labs CBC & Chem 7: 05/02/21 05:34 05/02/21 05:34 Labs: Abnormal Lab Results 05/02/21 05/01/21 05/01/21 05:34 13:04 13:04 RBC 3.39 L Hgb 10.4 L Hct 32.0 L POC Hct MPV APTT 41.2 H POC Potassium Carbon Dioxide Anion Gap Glucose POC Glucose GGT AST ALT Lactate Dehydrogenase C-Reactive Protein NT-Pro-B Natriuret Pep Procalcitonin 0.12 H 05/01/21 05/01/21 05/01/21 13:04 13:04 13:03 RBC 3.41 L Hgb 10.3 L Hct 31.5 L POC Hct 32 L MPV 10.5 H APTT POC Potassium 3.2 L Carbon Dioxide 19 L Anion Gap 20.0 H Glucose 126 H POC Glucose 130 H GGT 77 H AST 130 H ALT 110 H Lactate Dehydrogenase 414 H C-Reactive Protein 5.70 H NT-Pro-B Natriuret Pep 2882.0 H Procalcitonin Meds: Medications Acetaminophen (Acetaminophen 325 Mg Tablet) 650 mg PO Q6HP PRN PRN Reason: PAIN/FEVER > 101 Hydrocodone Bitart/Acetaminophen (Hydrocodone/Apap 10/325mg Tablet) 1 tab PO Q4HP PRN; Protocol PRN Reason: Pain Last Admin: 05/02/21 06:45 Dose: 1 tab Documented by: Albuterol/Ipratropium (Ipratropium/Albuterol 3 Ml Ampul.Neb) 3 ml NEB Q4HP PRN PRN Reason: Shortness Of Breath Amitriptyline HCl (Amitriptyline 25 Mg Tablet) 25 mg PO QHS [facility] Last Admin: 05/01/21 22:11 Dose: 25 mg Documented by: Atorvastatin Calcium (Atorvastatin 10 Mg Tablet) 10 mg PO QDAY [facility] Dexamethasone (Dexamethasone 4 Mg Tablet) 6 mg PO DAILY [facility] Docusate Sodium (Docusate Sodium 100 Mg Capsule) 100 mg PO BID [facility] Last Admin: 05/01/21 22:12 Dose: 100 mg Documented by: Enoxaparin Sodium (Enoxaparin 40 Mg/0.4 Ml Syringe) 40 mg SQ BID [facility] Last Admin: 05/01/21 22:11 Dose: 40 mg Documented by: Gabapentin (Gabapentin 400 Mg Capsule) 800 mg PO QID [facility] Last Admin: 05/01/21 22:13 Dose: 800 mg Documented by: Potassium Chloride 40 meq/ (Dextrose) 520 mls @ 130 mls/hr IV UD PRN PRN Reason: Potassium < 3 Magnesium Sulfate (Magnesium Sulfate) 2 gm in 50 mls @ 50 mls/hr IV UD PRN PRN Reason: Magnesium </= 1.6 Ceftriaxone Sodium 2 gm/ (Dextrose) 50 mls @ 100 mls/hr IV Q24H [facility]; Protocol Last Infusion: 05/01/21 23:55 Dose: Infused Documented by: Azithromycin 500 mg/ Dextrose 250 mls @ 250 mls/hr IV Q24H [facility]; Protocol Stop: 05/03/21 22:11 Last Infusion: 05/01/21 23:26 Dose: Infused Documented by: Levothyroxine Sodium (Levothyroxine 125 Mcg Tablet) 250 mcg PO QAMAC [facility] Metoclopramide HCl (Metoclopramide 10 Mg/2 Ml Vial) 10 mg IV Q6HP PRN PRN Reason: Nausea And Vomiting Omeprazole (Omeprazole 20 Mg Capsule) 20 mg PO DAILY [facility] Ondansetron HCl (Ondansetron 4 Mg/2 Ml Vial) 4 mg IV Q4HP PRN PRN Reason: Nausea And Vomiting Tiotropium- Olodaterol [Stiolto Respimat] 2.5-2.5 Inh 2 dose INH QDAY PRN PRN Reason: Shortness Of Breath Polyethylene Glycol (Polyethylene Glycol 3350 17 Gm Packet) 17 gm PO DAILYP PRN PRN Reason: Constipation Potassium Chloride (Potassium Chloride 20 Meq Tablet) 40 meq PO UD PRN PRN Reason: Potssium is 3-3.5 Potassium Chloride (Potassium Chloride 20 Meq Tablet) 40 meq PO UD PRN PRN Reason: Potassium < 3 Senna (Sennosides 1 Tablet) 2 tab PO DAILYP PRN PRN Reason: Constipation Sertraline HCl (Sertraline 50 Mg Tablet) 150 mg PO DAILY KAYLEE Sodium Chloride (0.9 % Sodium Chloride 10 Ml Syringe) 10 ml IV Q8 KAYLEE Last Admin: 05/02/21 04:39 Dose: 10 ml Documented by: Tizanidine HCl (Tizanidine 4 Mg Tablet) 6 mg PO QHS KAYLEE Last Admin: 05/01/21 22:13 Dose: 6 mg Documented by: Zolpidem Tartrate (Zolpidem 5 Mg Tablet) 10 mg PO HSP PRN PRN Reason: Sleep Last Admin: 05/01/21 23:25 Dose: 10 mg Documented by: A/P Narrative A/P Narrative: A: *Acute hypoxic respiratory failure: likely PNA vs diastolic CHF vs other inflammatory -on 3L NC *PNA (h/o recurrent PNA's): Viral vs atypical bacterial -CT chest with bilateral opacities, CRP elevated, pct low -covid/rvp neg *Reactive airway disease: *Diabetes w/neuropathy: *Chronic pain/osteoarthritis: On narcotics *Depression: *Hypothyroidism: *Obese: *SHELBY: uses cpap *GERD: *transaminitis: 2/2 infectious/inflammatory/?viral. improving *peripheral Edema since surgery last week P: -Rocephin/Azithro, pending BC/SC -myco/strep pending -IS/Acapella, nebs/RT -wean O2 as able -prn lasix -SSI, metformin -home cpap -f/u with Pulmonology for multiple admits for respiratory -ppx: lovenox/home ppi full code Time Spent With Patient Time: Total time spent is greater than 50% in coordination of care (as documented) at patient's floor/unit and/or counseling patient: [facility] VTE Deep Vein Thrombosis/Pulmonary Embolism Present on Admission: No
[2021-05-02] MEDS: LEVOTHYROXINE 125 MCG TABLET PO SCH (07:24)
[2021-05-02 08:23] LABS: Band Neutrophils % 1 % (0-10); Eosinophils % (Manual) 1 % (0-7); Lymphocytes % 16 % (15-49); Monocytes % (Manual) 2 % (1-12); Platelet Estimate NORMAL (Normal); RBC Morphology NORMAL (Normal); Segmented Neutrophils % 80 % (38-78)
[2021-05-02] MEDS: ENOXAPARIN 40 MG/0.4 ML SYRINGE SQ SCH ×2 (09:50→19:43)
[2021-05-02] MEDS: ATORVASTATIN 10 MG TABLET PO SCH (09:50)
[2021-05-02] MEDS: cefTRIAXone 2 GM in DEXTROSE 5% IN WATER 50 ML IV SCH (09:50)
[2021-05-02] MEDS: OMEPRAZOLE 20 MG CAPSULE PO SCH (09:51)
[2021-05-02] MEDS: SERTRALINE 50 MG TABLET PO SCH (09:51)
[2021-05-02] MEDS: GABAPENTIN 400 MG CAPSULE PO SCH ×4 (09:51→19:39)
[2021-05-02] MEDS: DEXAMETHASONE 4 MG TABLET PO SCH (09:51)
[2021-05-02] MEDS: DOCUSATE SODIUM 100 MG CAPSULE PO SCH ×2 (09:51→20:48)
--- NOTE | 2021-05-02 09:58 | XRay Report ---
CLINICAL INFORMATION: f/u b/l infiltrates COMPARISON: 04/22/2021 chest x-ray and 05/01/[address] FINDINGS: Heart size, mediastinum and pulmonary vessels are normal. Minimal patchy infiltrate in the right infrahilar region appreciated. No effusions. Bones soft tissues normal. IMPRESSION: Small right infrahilar infiltrate. Improvement from prior chest CT Interpreted and Authenticated by: [employer] 05/02/21
--- NOTE | 2021-05-02 13:28 | EKG ---
[facility] Test Date: 2021-05-01 Pat Name: Felisha Murphy Department: ED Room: Gender: Female Proration Clerk: : 1975 Requested By: Jonas Dye Order Number: [id number] Reading MD: Nathaniel Cuevas Measurements Intervals [place] Rate: 70 P: FL: QRS: 0 QRSD: 115 T: -36 QT: 421 QTc: 455 Interpretive Statements Sinus rhythm Excessive artifact No R wave voltage lateral precordial leads Findings are new compared to prior. Electronically Signed On 05-02-2021 13:28:41 PDT by Nathaniel Cuevas /[email or web address]/[id number]
--- NOTE | 2021-05-02 13:30 | EKG ---
[facility] Test Date: 2021-05-01 Pat Name: Felisha Murphy Department: ED Room: Gender: Female Manager Of Development: ricky : 1975 Requested By: Jonas Dye Order Number: [id number] Reading MD: Nathaniel Cuevas Measurements Intervals [place] Rate: 65 P: 50 NV: 149 QRS: -58 QRSD: 100 T: -38 QT: 451 QTc: 469 Interpretive Statements Sinus rhythm Leftward axis Low voltage reduced R voltage lateral precordial leads Artifact is resolved complared to prior. Electronically Signed On 05-02-2021 13:30:22 PDT by Nathaniel Cuevas /[email or web address]/[id number]
[2021-05-02] MEDS: AZITHROMYCIN 500 MG in DEXTROSE 5% IN WATER 250 ML IV SCH (13:55)
[2021-05-02] MEDS: tiZANidine 4 MG TABLET PO SCH (19:39)
[2021-05-02] MEDS: AMITRIPTYLINE 25 MG TABLET PO SCH (19:40)
[2021-05-02] MEDS: ZOLPIDEM 5 MG TABLET PO PRN (22:18)
[2021-05-03] MEDS: HYDROcodone/APAP 10/325MG TABLET PO PRN ×2 (00:23→08:20)
[2021-05-03] MEDS: 0.9 % SODIUM CHLORIDE 10 ML SYRINGE IV SCH (05:11)
[2021-05-03] MEDS ORDERED: FUROSEMIDE 40 MG/4 ML VIAL IV ONE (06:48)
[2021-05-03] MEDS: LEVOTHYROXINE 125 MCG TABLET PO SCH (07:41)
[2021-05-03] MEDS: GABAPENTIN 400 MG CAPSULE PO SCH (08:19)
[2021-05-03] MEDS: ATORVASTATIN 10 MG TABLET PO SCH (08:20)
[2021-05-03] MEDS: DOCUSATE SODIUM 100 MG CAPSULE PO SCH (08:20)
[2021-05-03] MEDS: OMEPRAZOLE 20 MG CAPSULE PO SCH (08:21)
[2021-05-03] MEDS: SERTRALINE 50 MG TABLET PO SCH (08:22)
[2021-05-03] MEDS: ENOXAPARIN 40 MG/0.4 ML SYRINGE SQ SCH (08:22)
[2021-05-03] MEDS: DEXAMETHASONE 4 MG TABLET PO SCH (08:22)
[2021-05-03] MEDS: cefTRIAXone 2 GM in DEXTROSE 5% IN WATER 50 ML IV SCH (09:00)
--- NOTE | 2021-05-03 09:13 | Discharge Summary ---
Discharge Provider Provider Patient information: Note initiated : 05/03/21 at 9:09 am Service Date, if different from initiated Date: [] Patient: Felisha Murphy 46 y/o F admitted on 05/01/21 for SOB with exertion. Chief Complaint: [] Date of admission: 05/01/21 21:09 Discharge date: 05/03/21 Primary care physician: Janes Kidd Consults: 05/01/21 Consult to Physician [CONS] Stat Comment: Consulting Provider: Barry Jeter Reason For Exam: Physician to Consult Discharge Meds Discharge Medications Home Medications sertraline 50 mg tablet 150 mg PO DAILY 12/05/15 [History Confirmed 05/01/21 Last Taken 04/23/21] zolpidem 10 mg tablet 10 mg PO HSP PRN 12/05/15 [History Confirmed 05/01/21 Last Taken 08/30/20 23:00] epinephrine 0.3 mg/0.3 mL injection, auto-injector 0.3 mg IM ONCE 11/10/18 [History Confirmed 05/01/21 Last Taken 01/26/19] levothyroxine 200 mcg capsule 250 mcg PO DAILY 11/10/18 [History Confirmed 05/01/21 Last Taken 04/23/21] omeprazole 20 mg capsule,delayed release 20 mg PO DAILY cap 11/10/18 [History Confirmed 05/01/21 Last Taken 08/31/20 08:00] gabapentin 800 mg PO QID 09/01/20 [History Confirmed 05/01/21 Last Taken 04/23/21] amitriptyline 25 mg tablet 25 mg PO QHS tab 10/22/20 [History Confirmed 05/01/21 Last Taken Unknown] rhubarb root extract 4 mg tablet 4 mg PO .daily tab 10/22/20 [History Confirmed 05/01/21 Last Taken Unknown] rosuvastatin 5 mg tablet 5 mg PO QDAY 10/22/20 [History Confirmed 05/01/21 Last Taken Unknown] Stiolto Respimat 2 puff INHALATION QDAY PRN 03/14/21 [History Confirmed 05/01/21 Last Taken Unknown] albuterol 90 mcg INHALATION BID 03/14/21 [History Confirmed 05/01/21 Last Taken Unknown] tizanidine 6 mg PO QHS 03/14/21 [History Confirmed 05/01/21 Last Taken Unknown] hydrocodone-acetaminophen 1 tab PO Q4HP PRN 05/01/21 [History Confirmed 05/01/21 Last Taken Unknown] amoxicillin-pot clavulanate 1 tab PO BID #6 tab 05/03/21 [Rx Last Taken Unknown] COURSE Hospital Course Hospital course: History of present illness: Ms. Murphy is a 46 year old F Presents the ED with shortness of breath. She says she is had increasing shortness of breath since Thursday. Few days prior to that she did have a shoulder arthroscopy. Since the surgery says she has had swelling in her arms and legs. She denies cough. Denies fever chills. She had a echo done this year which was unremarkable. She was admitted earlier in the year for a viral versus atypical bacterial pneumonia She has not had the Covid vaccine. The rapid was negative in the ED CTA showed no PE but did show bilateral infiltrates. She denies orthopnea, she has been sleeping in a recliner just because of the shoulder pain. She denies chest pain. 05/02 Patient states she feels a little bit better today. Denies cough. Covid meenakshi test negative. On 3 L nasal cannula sats of 95%. 05/03 Patient doing well. Has been on room air since yesterday morning. A: *Acute hypoxic respiratory failure: diastolic CHF vs viral PNA (h/o recurrent PNA's) *Reactive airway disease: *Diabetes w/neuropathy: *Chronic pain/osteoarthritis: On narcotics *Depression: *Hypothyroidism: *Obese: *SHELBY: uses cpap *GERD: *transaminitis: 2/2 infectious/inflammatory/?viral. improving *peripheral Edema since surgery last week Discharge diagnosis: Acute hypoxic respite failure from diastolic CHF vs viral pna Secondary discharge diagnosis: Diabetes chronic pain depression hypothyroidism obesity obstructive sleep apnea transaminitis GERD peripheral edema Time Spent with Patient Time attestation: Total time spent providing and/or coordinating discharge services: Time spent: Greater than 30 minutes EXAM Constitutional Vitals: Temp Pulse Resp BP Pulse Ox 97.3 F 56 L 16 93/54 93 05/03/21 03:43 05/03/21 03:43 05/03/21 03:43 05/03/21 03:43 05/03/21 03:43 Discharge Data Data Completed and Pending Labs on day of discharge: Labs from last 24 hours 05/02/21 05:34 ESR 22 H Discharge Plan Patient/Caregiver Discharge Instructions Activity: increase activity as tolerated Diet: Consistent Carbohydrate Prescriptions: New amoxicillin-pot clavulanate 875-125 mg tablet 1 tab PO BID Qty: 6 RF: 0 Continued zolpidem [Ambien] 10 mg tablet 10 mg PO HSP PRN (Reason: Sleep) RF: 0 sertraline 50 mg tablet 150 mg PO DAILY RF: 0 epinephrine 0.3 mg/0.3 mL auto-injector 0.3 mg IM ONCE RF: 0 levothyroxine 200 mcg capsule 250 mcg PO DAILY RF: 0 omeprazole 20 mg capsule,delayed release(DR/EC) 20 mg PO DAILY RF: 0 rosuvastatin 5 mg tablet 5 mg PO QDAY RF: 0 Estroven Cmplt Menopause Rlf 4 mg tablet 4 mg PO .daily RF: 0 amitriptyline 25 mg tablet 25 mg PO QHS RF: 0 gabapentin 800 mg Tablet 800 mg PO QID RF: 0 albuterol 90 mcg/actuation Aerosol 90 mcg INHALATION BID RF: 0 tizanidine 2 mg Capsule 6 mg PO QHS RF: 0 Stiolto Respimat 2.5-2.5 mcg/actuation Mist 2 puff INHALATION QDAY PRN (Reason: Shortness Of Breath) RF: 0 hydrocodone-acetaminophen 10-325 mg tablet 1 tab PO Q4HP PRN (Reason: Pain) RF: 0 Follow Up Plan Follow up with: Janes Kidd ARNP [Primary Care Provider] - Patient Disposition: Home, Self-Care Prognosis: Fair Overall status at discharge: patient is progressing back to baseline Discharge Orders: Discharge Order (Routine); Ordered 05/03/21 Ordered By: Barry Jeter [facility] VTE Deep Vein Thrombosis/Pulmonary Embolism Present on Admission: No
== END 2021-05-03 11:35 | disposition home or self-care (01) | DRG 189 ==
LOC: ED 11:51 → MEDSUR 21:09
PROVIDERS: ADMIT Internal Medicine; ATTEND Internal Medicine

== ENCOUNTER 2023-12-04 08:39 | Inpatient (IN) ==
[2023-12-04] MEDS ORDERED: IOPAMIDOL 100 ML BOTTLE IV ONE (08:40)
[2023-12-04] MEDS: IPRATROPIUM/ALBUTEROL 3 ML AMPUL.NEB NEB ONE ×3 (09:10→11:09)
[2023-12-04] MEDS: ACETAMINOPHEN 500 MG TABLET PO ONE (09:21)
[2023-12-04] MEDS: methylPREDNISolone SOD SUCC 125 MG/2 ML VIAL IV ONE (09:21)
[2023-12-04 09:42] LABS: Basophils # (Auto) 0.03 K/mcL (0.00-0.30); Basophils % (Auto) 0.3 % (0.0-2.0); Eosinophils # (Auto) 0.17 K/mcL (0.00-0.70); Eosinophils % (Auto) 1.4 % (0.0-7.0); Hematocrit 39.3 % (34.1-44.9); Hemoglobin 12.7 g/dL (11.2-15.7); Lymphocytes # (Auto) 1.21 K/mcL (1.50-4.80); Lymphocytes % (Auto) 10.3 % (15.5-49.0); Mean Cell Volume 94.7 fL (80.0-100.0); Mean Corpuscular HGB Conc 32.3 g/dL (31.0-36.0); Mean Platelet Volume 9.8 fL (8.8-12.5); Monocytes # (Auto) 0.86 K/mcL (0.10-0.90); Monocytes % (Auto) 7.3 % (1.0-12.0); Neutrophils % (Auto) 79.9 % (38.0-78.0); Platelet Count 210 K/mcL (140-440); RBC 4.15 M/mcL (3.59-5.38); Red Cell Distribution Width 12.4 % (11.5-14.5); WBC 11.7 K/mcL (4.5-11.0)
[2023-12-04 09:54] LABS: ALT/SGPT 27 U/L (<40); AST/SGOT 51 U/L (<32); Albumin 3.7 gm/dL (3.2-5.2); Albumin/Globulin Ratio 1.1 (1.0-2.3); Alkaline Phosphatase 95 U/L (39-117); Bilirubin,Total 0.7 mg/dL (0.1-1.0); Blood Urea Nitrogen 10 mg/dL (6-20); Calcium 9.2 mg/dL (8.6-10.4); Carbon Dioxide 27 mmol/L (22-30); Chloride 97 mmol/L (96-108); Globulin 3.3 gm/dL (2.2-3.7); Glomerular Filtration Rate 103; Glucose 121 mg/dL (70-105)
[2023-12-04] MEDS: FUROSEMIDE 20 MG/2 ML VIAL IV ONE (10:06)
[2023-12-04] MEDS: AZITHROMYCIN 250 MG TABLET PO ONE (10:40)
[2023-12-04] MEDS: cefTRIAXone 1 GM VIAL IV ONE (10:40)
[2023-12-04] MEDS ORDERED: guaiFENesin/DEXTROMETHORPHAN 5ML UD CUP PO PRN (14:28)
[2023-12-04] MEDS ORDERED: ONDANSETRON 4 MG/2 ML VIAL IV PRN (14:28)
[2023-12-04] MEDS: IPRATROPIUM/ALBUTEROL 3 ML AMPUL.NEB NEB SCH (14:51)
[2023-12-04] MEDS: 0.9 % SODIUM CHLORIDE 10 ML SYRINGE IV SCH (15:12)
[2023-12-04] MEDS: cefTRIAXone 2 GM in DEXTROSE 5% IN WATER 50 ML IV SCH (16:25)
[2023-12-04] MEDS: AZITHROMYCIN 500 MG in DEXTROSE 5% IN WATER 250 ML IV SCH (16:26)
[2023-12-04] MEDS ORDERED: ALBUTEROL SULFATE 60 PUFF INHALER INH PRN (16:41)
[2023-12-04] MEDS: AMITRIPTYLINE 10 MG TABLET PO SCH ×2 (18:39→20:41)
[2023-12-04] MEDS: ACETAMINOPHEN 325 MG TABLET PO PRN (20:40)
[2023-12-04] MEDS: DOCUSATE SODIUM 100 MG CAPSULE PO SCH (20:41)
[2023-12-04] MEDS: SENNOSIDES 1 TABLET PO SCH (20:41)
[2023-12-04] MEDS: cloNIDine HCL 0.1 MG TABLET PO SCH (20:42)
[2023-12-04] MEDS: traZODone HCL 50 MG TABLET PO PRN (21:25)
[2023-12-04] MEDS: HYDROmorphone 2 MG TABLET PO PRN (21:26)
[2023-12-05] MEDS: ZOLPIDEM 5 MG TABLET PO PRN (01:05)
[2023-12-05] MEDS: ZOLPIDEM 5 MG TABLET ONE (03:18)
[2023-12-05 07:21] LABS: Basophils # (Auto) 0.02 K/mcL (0.00-0.30); Basophils % (Auto) 0.2 % (0.0-2.0); Eosinophils # (Auto) 0 K/mcL (0.00-0.70); Eosinophils % (Auto) 0 % (0.0-7.0); Hematocrit 37.1 % (34.1-44.9); Lymphocytes # (Auto) 1.75 K/mcL (1.50-4.80); Lymphocytes % (Auto) 13.7 % (15.5-49.0); Mean Cell Volume 95.1 fL (80.0-100.0); Mean Corpuscular HGB Conc 32.3 g/dL (31.0-36.0); Mean Platelet Volume 10.1 fL (8.8-12.5); Monocytes # (Auto) 0.77 K/mcL (0.10-0.90); Neutrophils % (Auto) 78.8 % (38.0-78.0); Platelet Count 269 K/mcL (140-440); Red Cell Distribution Width 12.6 % (11.5-14.5); WBC 12.8 K/mcL (4.5-11.0)
[2023-12-05 07:22] LABS: ALT/SGPT 28 U/L (<40); AST/SGOT 38 U/L (<32); Albumin 3.7 gm/dL (3.2-5.2); Albumin/Globulin Ratio 1.1 (1.0-2.3); Alkaline Phosphatase 108 U/L (39-117); Bilirubin,Total 0.2 mg/dL (0.1-1.0); Blood Urea Nitrogen 11 mg/dL (6-20); Calcium 9.5 mg/dL (8.6-10.4); Carbon Dioxide 28 mmol/L (22-30); Chloride 99 mmol/L (96-108); Globulin 3.3 gm/dL (2.2-3.7); Glomerular Filtration Rate 108; Glucose 259 mg/dL (70-105)
[2023-12-05] MEDS: cefTRIAXone 2 GM in DEXTROSE 5% IN WATER 50 ML IV SCH (08:50)
[2023-12-05] MEDS: predniSONE 20 MG TABLET PO SCH (08:50)
[2023-12-05] MEDS: ENOXAPARIN 40 MG/0.4 ML SYRINGE SQ SCH (08:50)
[2023-12-05] MEDS ORDERED: ZOLPIDEM 10 MG PO PRN (09:11)
[2023-12-05] MEDS: GABAPENTIN 400 MG CAPSULE PO SCH (09:32)
[2023-12-05] MEDS: LEVOTHYROXINE 125 MCG TABLET PO SCH (09:32)
[2023-12-05] MEDS: AZITHROMYCIN 500 MG in DEXTROSE 5% IN WATER 250 ML IV SCH (09:32)
[2023-12-05] MEDS: LEVOTHYROXINE 200 MCG PO SCH (11:14)
[2023-12-05] MEDS: LEVOTHYROXINE 50 MCG TABLET PO SCH (11:14)
[2023-12-05] MEDS: tiZANidine 4 MG TABLET PO SCH (21:06)
[2023-12-05] MEDS: ATORVASTATIN 10 MG TABLET PO SCH (21:08)
[2023-12-05] MEDS: FLUTICASONE PROPION SALMETEROL INH SCH (21:11)
[2023-12-06 06:44] LABS: Basophils # (Auto) 0.04 K/mcL (0.00-0.30); Basophils % (Auto) 0.3 % (0.0-2.0); Eosinophils # (Auto) 0.06 K/mcL (0.00-0.70); Eosinophils % (Auto) 0.5 % (0.0-7.0); Hemoglobin 11.8 g/dL (11.2-15.7); Lymphocytes # (Auto) 3.82 K/mcL (1.50-4.80); Lymphocytes % (Auto) 32.6 % (15.5-49.0); Mean Cell Volume 95.9 fL (80.0-100.0); Mean Corpuscular HGB Conc 31.9 g/dL (31.0-36.0); Mean Platelet Volume 9.9 fL (8.8-12.5); Monocytes # (Auto) 0.54 K/mcL (0.10-0.90); Monocytes % (Auto) 4.6 % (1.0-12.0); Neutrophils % (Auto) 59.8 % (38.0-78.0); Platelet Count 300 K/mcL (140-440); RBC 3.86 M/mcL (3.59-5.38); WBC 11.7 K/mcL (4.5-11.0)
[2023-12-06 07:12] LABS: ALT/SGPT 31 U/L (<40); AST/SGOT 37 U/L (<32); Albumin 3.5 gm/dL (3.2-5.2); Albumin/Globulin Ratio 1.1 (1.0-2.3); Alkaline Phosphatase 123 U/L (39-117); Bilirubin,Total < 0.2 mg/dL (0.1-1.0); Blood Urea Nitrogen 14 mg/dL (6-20); Calcium 9.4 mg/dL (8.6-10.4); Carbon Dioxide 29 mmol/L (22-30); Chloride 102 mmol/L (96-108); Globulin 3.2 gm/dL (2.2-3.7); Glomerular Filtration Rate 115; Glucose 191 mg/dL (70-105)
[2023-12-06] MEDS: SERTRALINE 100 MG TABLET PO SCH (08:27)
[2023-12-06] MEDS: FUROSEMIDE 40 MG TABLET PO SCH ×2 (08:28→09:00)
[2023-12-06] MEDS: MELOXICAM 7.5 MG TABLET PO SCH (08:28)
[2023-12-06] MEDS: POTASSIUM CHLORIDE 10 MEQ TABLET PO SCH (08:59)
[2023-12-06] MEDS ORDERED: [UNRECOGNIZED DRUG - OTHER] PO SCH (09:00)
== END 2023-12-06 13:33 | disposition home or self-care (01) | DRG 190 ==
LOC: ED 08:39 → MEDSUR 14:28
PROVIDERS: ADMIT Internal Medicine; ATTEND Internal Medicine

== ENCOUNTER 2024-10-21 17:05 | Inpatient (IN) ==
[2024-10-21] MEDS ORDERED: IOPAMIDOL 100 ML BOTTLE IV ONE (17:06)
[2024-10-21] MEDS: methylPREDNISolone SOD SUCC 125 MG/2 ML VIAL IV ONE (17:27)
[2024-10-21] MEDS: IPRATROPIUM/ALBUTEROL 3 ML AMPUL.NEB NEB ONE ×2 (17:39→23:06)
[2024-10-21 18:39] LABS: ALT/SGPT 68 U/L (<40); AST/SGOT 65 U/L (<32); Albumin 4.1 gm/dL (3.2-5.2); Albumin/Globulin Ratio 1.3 (1.0-2.3); Alkaline Phosphatase 91 U/L (39-117); Bilirubin,Total 0.5 mg/dL (0.1-1.0); Blood Urea Nitrogen 11 mg/dL (6-20); Calcium 8.8 mg/dL (8.6-10.4); Carbon Dioxide 28 mmol/L (22-30); Chloride 100 mmol/L (96-108); Globulin 3.1 gm/dL (2.2-3.7); Glomerular Filtration Rate 102; Glucose 137 mg/dL (70-105); Potassium 3.8 mmol/L (3.3-5.1); Sodium 140 mmol/L (133-145)
[2024-10-21] MEDS: ALBUTEROL SULFATE 2.5 MG/3 ML NEBULIZER NEB ONE ×2 (19:10→20:26)
[2024-10-21 19:23] LABS: Basophils # (Auto) 0.01 K/mcL (0.00-0.30); Basophils % (Auto) 0.2 % (0.0-2.0); Eosinophils # (Auto) 0.14 K/mcL (0.00-0.70); Eosinophils % (Auto) 2.6 % (0.0-7.0); Hematocrit 41.2 % (34.1-44.9); Hemoglobin 12.9 g/dL (11.2-15.7); Lymphocytes # (Auto) 0.77 K/mcL (1.50-4.80); Lymphocytes % (Auto) 14.2 % (15.5-49.0); Mean Cell Volume 99.5 fL (80.0-100.0); Mean Corpuscular HGB Conc 31.3 g/dL (31.0-36.0); Mean Platelet Volume 9.4 fL (8.8-12.5); Monocytes # (Auto) 0.32 K/mcL (0.10-0.90); Monocytes % (Auto) 5.9 % (1.0-12.0); Neutrophils % (Auto) 76.5 % (38.0-78.0); Platelet Count 187 K/mcL (140-440); RBC 4.14 M/mcL (3.59-5.38); Red Cell Distribution Width 13.2 % (11.5-14.5); WBC 5.4 K/mcL (4.5-11.0)
[2024-10-21] MEDS: FUROSEMIDE 40 MG/4 ML VIAL IV ONE (20:06)
[2024-10-21] MEDS: AZITHROMYCIN 250 MG TABLET PO ONE (20:11)
[2024-10-21] MEDS ORDERED: MAGNESIUM SULFATE 2 GM/50 ML BAG IV PRN (22:17)
[2024-10-21] MEDS ORDERED: METOCLOPRAMIDE 10 MG/2 ML VIAL IV PRN (22:17)
[2024-10-21] MEDS ORDERED: POLYETHYLENE GLYCOL 3350 17 GM PACKET PO PRN (22:17)
[2024-10-21] MEDS ORDERED: POTASSIUM CHLORIDE 20 MEQ TABLET PO PRN ×2 (22:17)
[2024-10-21] MEDS ORDERED: ONDANSETRON 4 MG/2 ML VIAL IV PRN (22:17)
[2024-10-21] MEDS ORDERED: POTASSIUM CHLORIDE 40 MEQ in DEXTROSE 5% IN WATER 500 ML IV PRN (22:17)
[2024-10-21] MEDS ORDERED: SENNOSIDES 1 TABLET PO PRN (22:17)
[2024-10-21] MEDS: AZITHROMYCIN 500 MG in DEXTROSE 5% IN WATER 250 ML IV SCH (22:26)
[2024-10-21] MEDS: BUDESONIDE 0.5 MG/2 ML AMPUL.NEB NEB SCH (23:06)
[2024-10-21] MEDS: IPRATROPIUM/ALBUTEROL 3 ML AMPUL.NEB NEB SCH (23:07)
[2024-10-21] MEDS: DOCUSATE SODIUM 100 MG CAPSULE PO SCH (23:56)
[2024-10-21] MEDS: methylPREDNISolone SOD SUCC 125 MG/2 ML VIAL IV SCH (23:58)
[2024-10-21] MEDS: ENOXAPARIN 60 MG/0.6 ML SYRINGE ONE (23:59)
[2024-10-21] MEDS: methylPREDNISolone SOD SUCC 125 MG/2 ML VIAL ONE (23:59)
[2024-10-22] MEDS: ENOXAPARIN 40 MG/0.4 ML SYRINGE SQ SCH
[2024-10-22] MEDS: cloNIDine HCL 0.1 MG TABLET PO PRN (00:10)
[2024-10-22] MEDS: cloNIDine HCL 0.1 MG TABLET ONE (00:12)
[2024-10-22] MEDS: methylPREDNISolone SOD SUCC 125 MG/2 ML VIAL ONE (06:05)
[2024-10-22 06:21] LABS: Basophils # (Auto) 0 K/mcL (0.00-0.30); Basophils % (Auto) 0 % (0.0-2.0); Eosinophils # (Auto) 0.02 K/mcL (0.00-0.70); Eosinophils % (Auto) 0.4 % (0.0-7.0); Hematocrit 39.6 % (34.1-44.9); Hemoglobin 12.6 g/dL (11.2-15.7); Lymphocytes # (Auto) 0.67 K/mcL (1.50-4.80); Lymphocytes % (Auto) 12.2 % (15.5-49.0); Mean Cell Volume 98.8 fL (80.0-100.0); Mean Corpuscular HGB Conc 31.8 g/dL (31.0-36.0); Monocytes # (Auto) 0.12 K/mcL (0.10-0.90); Monocytes % (Auto) 2.2 % (1.0-12.0); Neutrophils % (Auto) 84.3 % (38.0-78.0); Platelet Count 199 K/mcL (140-440); RBC 4.01 M/mcL (3.59-5.38); WBC 5.5 K/mcL (4.5-11.0)
[2024-10-22] MEDS: IPRATROPIUM/ALBUTEROL 3 ML AMPUL.NEB NEB ONE (06:42)
[2024-10-22 07:25] LABS: ALT/SGPT 83 U/L (<40); AST/SGOT 70 U/L (<32); Albumin/Globulin Ratio 1.2 (1.0-2.3); Alkaline Phosphatase 80 U/L (39-117); Bilirubin,Direct < 0.2 mg/dL (0-0.3); Bilirubin,Total 0.3 mg/dL (0.1-1.0); Blood Urea Nitrogen 10 mg/dL (6-20); Calcium 9.2 mg/dL (8.6-10.4); Carbon Dioxide 29 mmol/L (22-30); Chloride 101 mmol/L (96-108); Globulin 3.3 gm/dL (2.2-3.7); Glomerular Filtration Rate 102; Glucose 195 mg/dL (70-105); Lactate Dehydrogenase 261 U/L (135-225); Phosphorous 2.3 mg/dL (2.5-4.5); Potassium 4.2 mmol/L (3.3-5.1); Sodium 142 mmol/L (133-145); Triglycerides 111 mg/dL (<150); Uric Acid 5.5 mg/dL (2.5-8.0)
[2024-10-22] MEDS: BUDESONIDE 0.5 MG/2 ML AMPUL.NEB ONE (07:57)
[2024-10-22] MEDS: PANTOPRAZOLE 40 MG PACKET PO SCH (09:04)
[2024-10-22] MEDS: LEVOTHYROXINE 50 MCG TABLET PO SCH (09:05)
[2024-10-22] MEDS: LEVOTHYROXINE 100 MCG TABLET PO SCH (09:29)
[2024-10-22] MEDS: GABAPENTIN 400 MG CAPSULE PO SCH (09:29)
[2024-10-22] MEDS: AMITRIPTYLINE 10 MG TABLET PO SCH (09:29)
[2024-10-22] MEDS: FUROSEMIDE 40 MG TABLET PO SCH (09:30)
[2024-10-22] MEDS: guaiFENesin 600 MG TAB.SR.12H PO SCH (09:30)
[2024-10-22] MEDS: SERTRALINE 100 MG TABLET PO SCH (09:30)
[2024-10-22] MEDS: cloNIDine HCL 0.1 MG TABLET PO SCH (09:30)
[2024-10-22] MEDS: HYDROmorphone 2 MG TABLET PO PRN (09:31)
[2024-10-22] MEDS: ENOXAPARIN 60 MG/0.6 ML SYRINGE SQ SCH (09:32)
[2024-10-22] MEDS: AZITHROMYCIN 500 MG in 0.9 % SODIUM CHLORIDE 250 ML IV SCH (09:33)
[2024-10-22] MEDS: methylPREDNISolone SOD SUCC 40 MG/ML VIAL IV SCH (14:44)
[2024-10-22] MEDS: IPRATROPIUM/ALBUTEROL 3 ML AMPUL.NEB NEB PRN (19:47)
[2024-10-22] MEDS: ZOLPIDEM 5 MG TABLET PO PRN (20:34)
[2024-10-22] MEDS: tiZANidine 4 MG TABLET PO SCH (20:36)
[2024-10-22] MEDS: ATORVASTATIN 10 MG TABLET PO SCH (20:40)
[2024-10-23] MEDS: ACETAMINOPHEN 325 MG TABLET PO PRN (06:06)
[2024-10-23 06:55] LABS: C-Reactive Protein 6.21 mg/dL (0.03-0.80)
[2024-10-23 07:00] LABS: Blood Urea Nitrogen 15 mg/dL (6-20); Calcium 9.7 mg/dL (8.6-10.4); Carbon Dioxide 28 mmol/L (22-30); Chloride 99 mmol/L (96-108); Glomerular Filtration Rate 102; Glucose 168 mg/dL (70-105); Sodium 141 mmol/L (133-145)
[2024-10-23] MEDS ORDERED: predniSONE 20 MG TABLET PO SCH (09:00)
[2024-10-23] MEDS: FUROSEMIDE 100 MG/10 ML VIAL IV ONE (09:09)
[2024-10-23] MEDS: AZITHROMYCIN 250 MG TABLET PO SCH (09:45)
[2024-10-23] MEDS: FUROSEMIDE 40 MG/4 ML VIAL IV SCH (09:47)
[2024-10-23] MEDS: PNEUMOCOCCAL 23-VAL P-SAC VAC 0.5 ML SYRINGE IM ONE (10:11)
[2024-10-23] MEDS: FLU VACC TS2024-25(6MOS UP)/PF 45 MCG/0.5 ML SYRINGE IM ONE (10:13)
[2024-10-23] MEDS: ARIPIPRAZOLE 2 MG PO SCH (10:16)
[2024-10-23] MEDS: methylPREDNISolone SOD SUCC 40 MG/ML VIAL IV SCH (14:20)
[2024-10-23] MEDS: PHENOL/SODIUM PHENOLATE 5 SPRAY BOTTLE 180ML SSP PRN (20:19)
[2024-10-23] MEDS: CYCLOBENZAPRINE 10 MG TABLET PO PRN (20:28)
[2024-10-24 06:25] LABS: ALT/SGPT 71 U/L (<40); AST/SGOT 48 U/L (<32); Albumin 3.9 gm/dL (3.2-5.2); Albumin/Globulin Ratio 1.3 (1.0-2.3); Alkaline Phosphatase 73 U/L (39-117); Bilirubin,Direct < 0.2 mg/dL (0-0.3); Bilirubin,Total 0.4 mg/dL (0.1-1.0); Blood Urea Nitrogen 19 mg/dL (6-20); C-Reactive Protein 4.75 mg/dL (0.03-0.80); Calcium 9.2 mg/dL (8.6-10.4); Carbon Dioxide 31 mmol/L (22-30); Chloride 98 mmol/L (96-108); Glomerular Filtration Rate 102; Glucose 136 mg/dL (70-105); Lactate Dehydrogenase 240 U/L (135-225); Potassium 3.6 mmol/L (3.3-5.1); Sodium 142 mmol/L (133-145); Triglycerides 193 mg/dL (<150); Uric Acid 5.7 mg/dL (2.5-8.0)
[2024-10-24] MEDS: FUROSEMIDE 40 MG/4 ML VIAL IV ONE (08:15)
[2024-10-24] MEDS: POTASSIUM CHLORIDE 20 MEQ TABLET PO ONE (11:31)
[2024-10-24] MEDS ORDERED: AZITHROMYCIN 500 MG in 0.9 % SODIUM CHLORIDE 250 ML IV SCH (15:00)
[2024-10-24] MEDS: cefTRIAXone 2 GM in DEXTROSE 5% IN WATER 50 ML IV SCH (15:33)
[2024-10-24] MEDS: PHENOL/SODIUM PHENOLATE 5 SPRAY BOTTLE 180ML SSP PRN (19:43)
[2024-10-24] MEDS: methylPREDNISolone SOD SUCC 40 MG/ML VIAL IV SCH (20:13)
[2024-10-25 06:31] LABS: Blood Urea Nitrogen 18 mg/dL (6-20); C-Reactive Protein 3.44 mg/dL (0.03-0.80); Calcium 9.6 mg/dL (8.6-10.4); Carbon Dioxide 34 mmol/L (22-30); Chloride 98 mmol/L (96-108); Glomerular Filtration Rate 107; Glucose 114 mg/dL (70-105); Potassium 3.7 mmol/L (3.3-5.1); Sodium 141 mmol/L (133-145)
[2024-10-25] MEDS: traMADol 50 MG TABLET PO PRN (09:10)
[2024-10-25] MEDS: guaiFENesin/CODEINE 10 ML UDC PO ONE (09:10)
[2024-10-25] MEDS: BENZONATATE 100 MG CAPSULE PO PRN (11:28)
[2024-10-25] MEDS: guaiFENesin/CODEINE 10 ML UDC PO PRN (13:16)
[2024-10-26 06:24] LABS: ALT/SGPT 69 U/L (<40); AST/SGOT 46 U/L (<32); Albumin 3.8 gm/dL (3.2-5.2); Albumin/Globulin Ratio 1.2 (1.0-2.3); Alkaline Phosphatase 78 U/L (39-117); Bilirubin,Direct < 0.2 mg/dL (0-0.3); Bilirubin,Total 0.2 mg/dL (0.1-1.0); Blood Urea Nitrogen 21 mg/dL (6-20); Calcium 9.4 mg/dL (8.6-10.4); Carbon Dioxide 33 mmol/L (22-30); Chloride 98 mmol/L (96-108); Globulin 3.3 gm/dL (2.2-3.7); Glomerular Filtration Rate 107; Glucose 129 mg/dL (70-105); Lactate Dehydrogenase 209 U/L (135-225); Phosphorous 4.5 mg/dL (2.5-4.5); Potassium 3.8 mmol/L (3.3-5.1); Sodium 142 mmol/L (133-145); Triglycerides 175 mg/dL (<150); Uric Acid 5.8 mg/dL (2.5-8.0)
[2024-10-26 06:57] LABS: Basophils # (Auto) 0.01 K/mcL (0.00-0.30); Basophils % (Auto) 0.2 % (0.0-2.0); Eosinophils # (Auto) 0.01 K/mcL (0.00-0.70); Eosinophils % (Auto) 0.2 % (0.0-7.0); Hematocrit 42.3 % (34.1-44.9); Hemoglobin 13.3 g/dL (11.2-15.7); Lymphocytes # (Auto) 2.02 K/mcL (1.50-4.80); Lymphocytes % (Auto) 35.9 % (15.5-49.0); Mean Cell Volume 97.9 fL (80.0-100.0); Mean Corpuscular HGB Conc 31.4 g/dL (31.0-36.0); Mean Platelet Volume 9.2 fL (8.8-12.5); Monocytes # (Auto) 0.21 K/mcL (0.10-0.90); Monocytes % (Auto) 3.7 % (1.0-12.0); Neutrophils % (Auto) 56.8 % (38.0-78.0); Platelet Count 235 K/mcL (140-440); RBC 4.32 M/mcL (3.59-5.38); Red Cell Distribution Width 12.7 % (11.5-14.5); WBC 5.6 K/mcL (4.5-11.0)
[2024-10-26] MEDS: 0.9 % SODIUM CHLORIDE 10 ML SYRINGE IV SCH (20:39)
[2024-10-27 06:46] LABS: Basophils # (Auto) 0.01 K/mcL (0.00-0.30); Basophils % (Auto) 0.2 % (0.0-2.0); Eosinophils # (Auto) 0.01 K/mcL (0.00-0.70); Eosinophils % (Auto) 0.2 % (0.0-7.0); Hematocrit 41.5 % (34.1-44.9); Hemoglobin 13.2 g/dL (11.2-15.7); Lymphocytes # (Auto) 2.28 K/mcL (1.50-4.80); Lymphocytes % (Auto) 37.9 % (15.5-49.0); Mean Cell Volume 98.1 fL (80.0-100.0); Mean Corpuscular HGB Conc 31.8 g/dL (31.0-36.0); Mean Platelet Volume 9.5 fL (8.8-12.5); Platelet Count 238 K/mcL (140-440); RBC 4.23 M/mcL (3.59-5.38); Red Cell Distribution Width 12.6 % (11.5-14.5)
[2024-10-27 07:07] LABS: ALT/SGPT 60 U/L (<40); AST/SGOT 35 U/L (<32); Albumin 3.9 gm/dL (3.2-5.2); Albumin/Globulin Ratio 1.1 (1.0-2.3); Alkaline Phosphatase 87 U/L (39-117); Bilirubin,Direct < 0.2 mg/dL (0-0.3); Bilirubin,Total 0.2 mg/dL (0.1-1.0); Blood Urea Nitrogen 18 mg/dL (6-20); Calcium 9.8 mg/dL (8.6-10.4); Carbon Dioxide 30 mmol/L (22-30); Chloride 97 mmol/L (96-108); Globulin 3.4 gm/dL (2.2-3.7); Glomerular Filtration Rate 107; Glucose 118 mg/dL (70-105); Lactate Dehydrogenase 217 U/L (135-225); Phosphorous 4.1 mg/dL (2.5-4.5); Potassium 3.8 mmol/L (3.3-5.1); Sodium 142 mmol/L (133-145); Triglycerides 171 mg/dL (<150); Uric Acid 5.7 mg/dL (2.5-8.0)
[2024-10-27] MEDS: FUROSEMIDE 100 MG/10 ML VIAL IV ONE (10:44)
[2024-10-27] MEDS: POTASSIUM CHLORIDE 20 MEQ TABLET PO ONE (10:53)
[2024-10-28 06:58] LABS: Basophils # (Auto) 0.02 K/mcL (0.00-0.30); Basophils % (Auto) 0.3 % (0.0-2.0); Eosinophils % (Auto) 1.5 % (0.0-7.0); Hematocrit 42.4 % (34.1-44.9); Hemoglobin 13.3 g/dL (11.2-15.7); Lymphocytes # (Auto) 3.51 K/mcL (1.50-4.80); Lymphocytes % (Auto) 51.6 % (15.5-49.0); Mean Cell Volume 99.1 fL (80.0-100.0); Mean Corpuscular HGB Conc 31.4 g/dL (31.0-36.0); Monocytes # (Auto) 0.35 K/mcL (0.10-0.90); Monocytes % (Auto) 5.1 % (1.0-12.0); Neutrophils % (Auto) 38.3 % (38.0-78.0); Platelet Count 231 K/mcL (140-440); RBC 4.28 M/mcL (3.59-5.38); Red Cell Distribution Width 12.8 % (11.5-14.5); WBC 6.8 K/mcL (4.5-11.0)
[2024-10-28 07:37] LABS: ALT/SGPT 51 U/L (<40); AST/SGOT 29 U/L (<32); Albumin 3.8 gm/dL (3.2-5.2); Albumin/Globulin Ratio 1.3 (1.0-2.3); Alkaline Phosphatase 84 U/L (39-117); Bilirubin,Direct < 0.2 mg/dL (0-0.3); Bilirubin,Total 0.2 mg/dL (0.1-1.0); Blood Urea Nitrogen 22 mg/dL (6-20); Calcium 9.7 mg/dL (8.6-10.4); Carbon Dioxide 34 mmol/L (22-30); Chloride 96 mmol/L (96-108); Glomerular Filtration Rate 102; Glucose 98 mg/dL (70-105); Lactate Dehydrogenase 211 U/L (135-225); Phosphorous 4.1 mg/dL (2.5-4.5); Potassium 3.4 mmol/L (3.3-5.1); Sodium 141 mmol/L (133-145); Triglycerides 147 mg/dL (<150); Uric Acid 5.8 mg/dL (2.5-8.0)
[2024-10-28] MEDS: POTASSIUM CHLORIDE 20 MEQ TABLET PO ONE (10:30)
[2024-10-28] MEDS: FUROSEMIDE 40 MG/4 ML VIAL IV ONE (10:31)
[2024-10-28] MEDS: methylPREDNISolone SOD SUCC 40 MG/ML VIAL IV SCH (10:31)
[2024-10-28] MEDS: CEFDINIR 300 MG CAPSULE PO SCH (21:35)
[2024-10-29] MEDS: predniSONE 20 MG TABLET PO SCH (07:46)
[2024-10-29 07:48] LABS: Basophils # (Auto) 0.02 K/mcL (0.00-0.30); Basophils % (Auto) 0.3 % (0.0-2.0); Eosinophils # (Auto) 0.14 K/mcL (0.00-0.70); Eosinophils % (Auto) 1.8 % (0.0-7.0); Hematocrit 41.7 % (34.1-44.9); Hemoglobin 13.1 g/dL (11.2-15.7); Lymphocytes # (Auto) 3.63 K/mcL (1.50-4.80); Lymphocytes % (Auto) 46.7 % (15.5-49.0); Mean Cell Volume 98.8 fL (80.0-100.0); Mean Corpuscular HGB Conc 31.4 g/dL (31.0-36.0); Mean Platelet Volume 9.4 fL (8.8-12.5); Monocytes # (Auto) 0.37 K/mcL (0.10-0.90); Monocytes % (Auto) 4.8 % (1.0-12.0); Neutrophils % (Auto) 42.8 % (38.0-78.0); Platelet Count 240 K/mcL (140-440); RBC 4.22 M/mcL (3.59-5.38); Red Cell Distribution Width 12.7 % (11.5-14.5); WBC 7.8 K/mcL (4.5-11.0)
[2024-10-29 07:58] LABS: ALT/SGPT 48 U/L (<40); AST/SGOT 24 U/L (<32); Albumin 3.9 gm/dL (3.2-5.2); Albumin/Globulin Ratio 1.3 (1.0-2.3); Alkaline Phosphatase 99 U/L (39-117); Bilirubin,Direct < 0.2 mg/dL (0-0.3); Bilirubin,Total 0.2 mg/dL (0.1-1.0); Blood Urea Nitrogen 22 mg/dL (6-20); Calcium 9.8 mg/dL (8.6-10.4); Carbon Dioxide 33 mmol/L (22-30); Chloride 98 mmol/L (96-108); Globulin 2.9 gm/dL (2.2-3.7); Glomerular Filtration Rate 107; Glucose 96 mg/dL (70-105); Lactate Dehydrogenase 204 U/L (135-225); Potassium 3.3 mmol/L (3.3-5.1); Sodium 145 mmol/L (133-145); Triglycerides 170 mg/dL (<150); Uric Acid 5.3 mg/dL (2.5-8.0)
[2024-10-29] MEDS: DOXYCYCLINE HYCLATE 100 MG TABLET.ORL PO SCH (20:34)
[2024-10-30 07:18] LABS: ALT/SGPT 46 U/L (<40); AST/SGOT 24 U/L (<32); Albumin 3.9 gm/dL (3.2-5.2); Albumin/Globulin Ratio 1.3 (1.0-2.3); Alkaline Phosphatase 94 U/L (39-117); Basophils # (Auto) 0.04 K/mcL (0.00-0.30); Basophils % (Auto) 0.5 % (0.0-2.0); Bilirubin,Direct < 0.2 mg/dL (0-0.3); Bilirubin,Total 0.2 mg/dL (0.1-1.0); Blood Urea Nitrogen 20 mg/dL (6-20); Calcium 9.2 mg/dL (8.6-10.4); Carbon Dioxide 34 mmol/L (22-30); Chloride 99 mmol/L (96-108); Eosinophils # (Auto) 0.18 K/mcL (0.00-0.70); Eosinophils % (Auto) 2.1 % (0.0-7.0); Globulin 2.9 gm/dL (2.2-3.7); Glomerular Filtration Rate 107; Glucose 113 mg/dL (70-105); Hematocrit 41.4 % (34.1-44.9); Hemoglobin 13.1 g/dL (11.2-15.7); Lactate Dehydrogenase 220 U/L (135-225); Lymphocytes # (Auto) 4.06 K/mcL (1.50-4.80); Lymphocytes % (Auto) 46.5 % (15.5-49.0); Mean Corpuscular HGB Conc 31.6 g/dL (31.0-36.0); Mean Platelet Volume 9.2 fL (8.8-12.5); Monocytes % (Auto) 4.6 % (1.0-12.0); Neutrophils % (Auto) 42.1 % (38.0-78.0); Phosphorous 4.4 mg/dL (2.5-4.5); Platelet Count 236 K/mcL (140-440); Potassium 3.3 mmol/L (3.3-5.1); RBC 4.18 M/mcL (3.59-5.38); Red Cell Distribution Width 12.8 % (11.5-14.5); Sodium 143 mmol/L (133-145); Triglycerides 164 mg/dL (<150); Uric Acid 4.9 mg/dL (2.5-8.0); WBC 8.7 K/mcL (4.5-11.0)
[2024-10-30 10:46] VITALS: TEMP 97.8; O2SAT 90
== END 2024-10-30 10:49 | disposition home or self-care (01) | DRG 871 ==
LOC: ED 17:05 → ICU 22:12 → MEDSUR 10-28 10:54
PROVIDERS: ADMIT Internal Medicine; ATTEND Internal Medicine